=== PATIENT | female | born 1940 | race Caucasian/White ===

== ENCOUNTER → 2018-01-08 | Outpatient (CLI) | payer MEDICARE | END | disposition home or self-care (01) | LOC: KCIC MRI 12:12 | DX: S33.130A Subluxation of L3/L4 lumbar vertebra, initial encounter (principal); M47.895 Other spondylosis, thoracolumbar region; I10 Essential (primary) hypertension; I73.9 Peripheral vascular disease, unspecified; G89.29 Other chronic pain; Z87.891 Personal history of nicotine dependence; X58.XXXA Exposure to other specified factors, initial encounter; Y93.89 Activity, other specified; Y92.89 Other specified places as the place of occurrence of the external cause; Y99.8 Other external cause status | CPT/HCPCS: 72100; 93925 ==

== ENCOUNTER 2020-07-29 02:45 | Inpatient (IN) | payer MEDICARE ==
[~2020-07-29] VITALS: Ht 170.2 cm; Wt 63.0 kg
[~2020-07-29 02:45] MED LIST: ASPI-886 PO; CA C1TAB38 PO; CHOL100013 PO; CITA10TA4 PO; DOXY100C2 PO; HYDR-3164 PO; LISI-334 PO; OMEG500C3 PO; SIMV40TA18 PO
--- NOTE | 2020-07-29 03:01 | PHYS DOC ---
Past Medical History Past Medical History: COPD, Hypertension Past Surgical History: Hysterectomy, Other Additional Past Surgical Histo: AAA REPAIR W/ STENT PLACEMENT Smoking Status: Current Every Day Smoker Alcohol Use: None Drug Use: None General Adult EDM: Chief Complaint: WEAKNESS/GENERALIZED HPI: HPI: Patient is a 79 year old presents with right sided weakness, last known normal was at 2300 on 07/28. Patient noticed difficulty using her right hand. Patient also has some weakness in the right leg and dysarthria. Patient states symptoms are better than when they started but still has some difficulty touching her nose with her right hand. Patient denies any pain at this time. Review of Systems: Review of Systems: Constitutional: Denies fever or chills. [] Eyes: Denies change in visual acuity. [] HENT: Denies nasal congestion or sore throat. [] Respiratory: Denies cough or shortness of breath. [] Cardiovascular: Denies chest pain or edema. [] GI: Denies abdominal pain, nausea, vomiting, bloody stools or diarrhea. [] : Denies dysuria. [] Musculoskeletal: Denies back pain or joint pain. [] Integument: Denies rash. [] Neurologic: Denies headache, but has right-sided weakness Endocrine: Denies polyuria or polydipsia. [] Lymphatic: Denies swollen glands. [] Psychiatric: Denies depression or anxiety. [] Heart Score: Risk Factors: Risk Factors: DM, Current or recent (<one month) smoker, HTN, HLP, family history of CAD, obesity. Risk Scores: Score 0 - 3: 2.5% MACE over next 6 weeks - Discharge Home Score 4 - 6: 20.3% MACE over next 6 weeks - Admit for Clinical Observation Score 7 - 10: 72.7% MACE over next 6 weeks - Early Invasive Strategies Allergies: Allergies: Allergies Coded Allergies Type Severity Reaction Last Updated Verified codeine Adverse Reaction Intermediate Nausea 12/07/14 Yes Physical Exam: PE: Constitutional: Well developed, well nourished, no acute distress, non-toxic appearance. [] HENT: Normocephalic, atraumatic, bilateral external ears normal, oropharynx moist, no oral exudates, nose normal. [] Eyes: PERRLA, EOMI, conjunctiva normal, no discharge. [] Neck: Normal range of motion, no tenderness, supple, no stridor. [] Cardiovascular:Heart rate regular rhythm, peripheral pulses intact, cap refill brisk Lungs & Thorax: Bilateral breath sounds clear, no respiratory distress Abdomen: soft, no tenderness, no masses, no pulsatile masses. [] Skin: Warm, dry, no erythema, no rash. [] Back: No tenderness, no CVA tenderness. [] Extremities: No tenderness, no cyanosis, no clubbing, ROM intact, no edema. [] Neurologic: Alert and oriented X 3, right leg weakness, dysarthria, abnormal cerebellar exam Psychologic: Affect normal, judgement normal, mood normal. [] Current Patient Data: Labs: Laboratory Tests Test 07/29/20 03:00 White Blood Count 7.8 x10^3/uL Red Blood Count 4.45 x10^6/uL Hemoglobin 13.9 g/dL Hematocrit 41.0 % Mean Corpuscular Volume 92 fL Mean Corpuscular Hemoglobin 31 pg Mean Corpuscular Hemoglobin Concent 34 g/dL Red Cell Distribution Width 15.3 % Platelet Count 221 x10^3/uL Neutrophils (%) (Auto) 58 % Lymphocytes (%) (Auto) 28 % Monocytes (%) (Auto) 10 % Eosinophils (%) (Auto) 3 % Basophils (%) (Auto) 1 % Neutrophils # (Auto) 4.5 x10^3/uL Lymphocytes # (Auto) 2.2 x10^3/uL Monocytes # (Auto) 0.8 x10^3/uL Eosinophils # (Auto) 0.2 x10^3/uL Basophils # (Auto) 0.1 x10^3/uL Prothrombin Time 12.1 SEC Prothromb Time International Ratio 0.9 Activated Partial Thromboplast Time 32 SEC Sodium Level 140 mmol/L Potassium Level 3.8 mmol/L Chloride Level 104 mmol/L Carbon Dioxide Level 29 mmol/L Anion Gap 7 Blood Urea Nitrogen 23 mg/dL Creatinine 1.0 mg/dL Estimated GFR (Cockcroft-Gault) 53.3 BUN/Creatinine Ratio 23 Glucose Level 106 mg/dL Calcium Level 8.8 mg/dL Total Bilirubin 0.2 mg/dL Aspartate Amino Transf (AST/SGOT) 28 U/L Alanine Aminotransferase (ALT/SGPT) 27 U/L Alkaline Phosphatase 196 U/L Troponin I Quantitative 0.019 ng/mL Total Protein 6.4 g/dL Albumin 3.1 g/dL Albumin/Globulin Ratio 0.9 Current Medications Medications (Trade) Dose Ordered Sig/Franky Route PRN Reason Start Time Stop Time Status Last Admin Dose Admin Labetalol HCl (Normodyne Iv Push) 20 mg 1X ONCE IVP 07/29/20 03:30 07/29/20 03:31 DC 07/29/20 03:53 Iohexol (Omnipaque 350 Mg/ml) 75 ml 1X ONCE IV 07/29/20 03:30 07/29/20 03:31 DC Info (CONTRAST GIVEN -- Rx MONITORING) 1 each PRN DAILY PRN MC SEE COMMENTS 07/29/20 03:15 07/31/20 03:14 Aspirin (Aspirin Chewable) 324 mg 1X ONCE PO 07/29/20 04:00 07/29/20 04:01 DC 07/29/20 03:57 Ondansetron HCl (Zofran) 4 mg PRN Q8HRS PRN IV NAUSEA/VOMITING 1ST CHOICE 07/29/20 04:00 07/30/20 03:59 Vital Signs: Vital Signs Date Time Temp Pulse Resp B/P (MAP) Pulse Ox O2 Delivery O2 Flow Rate FiO2 07/29/20 03:53 65 205/93 07/29/20 02:52 97.9 70 20 232/107 (148) 92 Room Air 97.9 EKG: EKG: [] Normal sinus rhythm with a rate of 69 normal axis normal intervals normal ST segments Radiology/Procedures: Radiology/Procedures: [][facility] [address] [place] [address] IMAGING REPORT Signed PATIENT: HONORIO MCGUIRE ACCOUNT: [id number] : 1940 LOCATION: ER AGE: 79 SEX: F EXAM STATUS: REG ER ORD. PHYSICIAN: NARCISO LAGOS MD REASON: R WEAK PROCEDURE: CT CODE STROKE HEAD WO STUDY: CT head without contrast INDICATION: Right-sided weakness. COMPARISON: None. TECHNIQUE: Axial CT imaging through the head without the use of intravenous contrast. Sagittal and coronal reformats were obtained. One or more of the following individualized dose reduction techniques were utilized for this examination: 1. Automated exposure control 2. Adjustment of the mA and/or kV according to patient size 3. Use of iterative reconstruction technique. FINDINGS: No acute intracranial hemorrhage. No mass effect, midline shift or hydrocephalus. No large area of shepherd-white matter differentiation loss is identified. White matter findings which are nonspecific but most frequently seen in the setting of chronic microvascular ischemic change. Intracranial atherosclerotic calcifications. Surgical changes of both globes. Intact calvarium. IMPRESSION: No acute intracranial hemorrhage or CT evidence for an acute cortical infarction. The findings were discussed with Dr. Lagos via telephone on 07/21/2020. Electronically signed by: SAEID RAVI MD (07/29/2020 3:54 AM) [id number] DICTATED and SIGNED BY: SAEID RAVI MD DATE: 07/29/20 035 [facility] [address] [place] [address] IMAGING REPORT Signed PATIENT: HONORIO MCGUIRE ACCOUNT: [id number] : 1940 LOCATION: SOUTH AGE: 79 SEX: F EXAM STATUS: ADM IN ORD. PHYSICIAN: NARCISO LAGOS MD REASON: R WEAK PROCEDURE: CTA HEAD/NECK - CODE STROKE STUDY: CT angiography of the head and neck INDICATION: Right-sided weakness. COMPARISON: None. TECHNIQUE: Axial CT imaging of the head and neck utilizing angiography protocol and performed after the intravenous administration of 75 cc Omnipaque 300 contrast. Multiplanar reformats and 3D MIP acquisitions were obtained. Encountered areas of stenosis are measured per NASCET criteria. One or more of the following individualized dose reduction techniques were utilized for this examination: 1. Automated exposure control 2. Adjustment of the mA and/or kV according to patient size 3. Use of iterative reconstruction technique. FINDINGS: CTA NECK: Arch/Proximal Great Vessels: Multifocal calcified and noncalcified atheromatous plaque. The great vessel origins are not included in the [id number]-me-mrhm. No flow-limiting stenosis of the visualized left subclavian, left common carotid and brachiocephalic arteries. The right common carotid artery is patent throughout. Carotid Bifurcation/Cervical ICA: No stenosis through the skull base. Vertebral Arteries: Right-sided dominance. No stenosis or dissection throughout the neck. CTA HEAD: Posterior Circulation: Both intracranial vertebral arteries are patent and contribute to basilar flow. The basilar artery is widely patent. The adequately assessed vertebral and basilar artery branch vessels are patent. Moderate short segment stenosis of the left P1 segment, image 232 series 11. No stenosis is seen more distally on the left. Mild/moderate short segment stenosis of the right P2 segment, image 83 series 13. Short segment severe stenosis of the right posterior cerebral artery at the junction of the P2 and P3 segments, image 236 series 11. On the 3-D reformatted images there appears be occlusion at the P2-P3 junction but on the thin slice axials there is maintained opacification of the more distal right [employer] segments. Anterior Circulation: No stenosis of either intracranial internal carotid artery. Medial/inferior luminal outpouching seen bilaterally approaching the carotid terminus, but larger on the left, favored infundibula from the posterior communicating artery origin such as seen on the left on image 218 series 11. No large aneurysm. No central branch vessel occlusion or flow-limiting stenosis involving either total or anterior cerebral artery. Veins: Patent. MISCELLANEOUS: Emphysema. Multifactorial degenerative changes of the visualized spine with resultant central canal stenosis greatest at C3-C4 but not severe. Osseous neural foraminal encroachment is greatest on the left at C4-C5 and on the right at C3-C4. Osteopenia. Multiple missing teeth. IMPRESSION: CT Angio Neck: 1. Multifocal calcified and noncalcified atheromatous plaque but there is no flow-limiting stenosis or dissection throughout the extracranial carotid or vertebral arteries. 2. Chronic findings to include emphysema and advanced multifactorial cervical spine degenerative changes (greatest at C3-C4 and C4-C5). CT Angio Head: 1. No central occlusion is seen throughout the anterior or posterior cerebral circulation. 2. 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 Moderate stenosis of the left P1 segment and mild/moderate stenosis of the right P2 segment. No flow-limiting stenosis seen throughout the anterior circulation. If there is ongoing concern for an acute ischemic event MRI is recommended. Electronically signed by: SAEID RAVI MD (07/29/2020 4:34 AM) [id number] DICTATED and SIGNED BY: SAEID RAVI MD DATE: 07/29/20 0434 Course & Med Decision Making: Course & Med Decision Making Pertinent Labs and Imaging studies reviewed. (See chart for details) [] 1a Level of Consciousness: 0 = Alert; keenly responsive. 1b LOC Questions: 0 = Answers both questions correctly. 1c 0 = Performs both tasks correctly. 2 Best Gaze: 0 = Normal. 3. Visual: 0 = No visual loss. 4. Facial Palsy: 0 = Normal symmetrical movements. 5. Motor Arm: Left 0 = No drift; limb holds 90 (or 45) degrees for full 10 seconds. Right 1 = Drift; limb holds 90 (or 45) degrees, but drifts down before full 10 seconds; does not hit bed or other support. 6. Motor Leg: Left 0 = No drift; leg holds 30-degree position for full 5 seconds. Right 2 = Some effort against gravity; leg falls to bed by 5 seconds but has some effort against gravity. 7. Limb Ataxia: 1 = Present in one limb. 8. Sensory: 0 = Normal; no sensory loss. 9. Best Langauge: 1 = Geun-ov-lucekptd aphasia; some obvious loss of fluency or facility of co mprehension, without significant limitation on ideas expressed or form of expression. Reduction of speech and/or comprehension, however, makes conversation about provided materials difficult or impossible. For example, in conversation about provided materials, examiner can identify picture or naming card content from patient's response. 10 Dysarthria: 1 = Raxr-eg-dqfggfdx dysarthria; patient slurs at least some words and, at worst, can be understood with some difficulty. 11. Extinction and Inattention (formerly Neglect): 0 = No abnormality. nih:6 79-year-old female presents with stroke-like symptoms. Patient has a NIH of 6. Patient's last known normal was 3 hours and 45 minutes prior to arrival and due to her age of 79 she is not a candidate for TPA and in the 3 to 4-1/2-hour window. Patient does not have a large vessel occlusion therefore she is not sent for endovascular clot retrieval. Symptoms may also be due to accelerated hypertension. Patient given dose of labetalol. Patient be admitted to Dr. Yang with a consult placed with neurology. Critical care time was [35] minutes exclusive of procedures. Critical care time was [35] minutes which includes time at bedside, spent in discussion of patient's care with specialist and/or family members, with interpretation of laboratory and/or radiological studies and is exclusive of procedures. Clinical condition: Stroke Critical interventions: Labetalol, aspirin, admission with neurology consult Cristiana Disclaimer: Cristiana Disclaimer: This electronic medical record was generated, in whole or in part, using a voice recognition dictation system. Departure Departure Impression: Primary Impression: CVA (cerebral vascular accident) Additional Impression: Accelerated hypertension Disposition: ADMITTED INPATIENT Admitting Physician: TRISTAN GUERRERO) Condition: GUARDED Referrals: NO PCP (PCP) Justicifation of Admission Dx: Justifications for Admission: Justification of Admission Dx: Yes NARCISO LAGOS MD Jul 29, 2020 03:01
[2020-07-29 03:10] LABS: BASO # 0.1 x10^3/uL (0.0-0.2); BASO % 1 % (0-3); EOS # 0.2 x10^3/uL (0.0-0.7); EOS % 3 % (0-3); HEMOGLOBIN 13.9 g/dL (12.0-15.5); LYMPH # 2.2 x10^3/uL (1.0-4.8); LYMPH % 28 % (24-48); MEAN CORPUSCULAR HEMOGLOBIN 31 pg (25-35); MEAN CORPUSCULAR HGB CONC 34 g/dL (31-37); MEAN CORPUSCULAR VOLUME 92 fL (79-100); MONO # 0.8 x10^3/uL (0.0-1.1); MONO % 10 % (0-9); NEUT # 4.5 x10^3/uL (1.8-7.7); NEUT % 58 % (31-73); PLATELET COUNT 221 x10^3/uL (140-400); RED BLOOD COUNT 4.45 x10^6/uL (3.50-5.40); RED CELL DISTRIBUTION WIDTH 15.3 % (11.5-14.5); WHITE BLOOD COUNT 7.8 x10^3/uL (4.0-11.0)
[2020-07-29] MEDS ORDERED: CONTRAST GIVEN. MC PRN (03:15)
[2020-07-29 03:20] LABS: PROTHROMBIN TIME PATIENT 12.1 SEC (11.7-14.0)
[2020-07-29 03:21] LABS: CALCIUM 8.8 mg/dL (8.5-10.1); GFR 53.3; POTASSIUM 3.8 mmol/L (3.5-5.1)
[2020-07-29 03:26] LABS: ALBUMIN 3.1 g/dL (3.4-5.0); ALBUMIN/GLOBULIN RATIO 0.9 (1.0-1.7); TOTAL BILIRUBIN 0.2 mg/dL (0.2-1.0); TOTAL PROTEIN 6.4 g/dL (6.4-8.2)
[2020-07-29] MEDS ORDERED: LABETALOL 20 MG/4 ML DISP.SYRIN. IVP ONE (03:30)
[2020-07-29] MEDS ORDERED: IOHEXOL 350 MG/ML 100 ML VIAL. IV ONE (03:30)
--- NOTE | 2020-07-29 03:57 | RAD ---
STUDY: CT head without contrast INDICATION: Right-sided weakness. COMPARISON: None. TECHNIQUE: Axial CT imaging through the head without the use of intravenous contrast. Sagittal and coronal reformats were obtained. One or more of the following individualized dose reduction techniques were utilized for this examination: 1. Automated exposure control 2. Adjustment of the mA and/or kV according to patient size 3. Use of iterative reconstruction technique. FINDINGS: No acute intracranial hemorrhage. No mass effect, midline shift or hydrocephalus. No large area of shepherd-white matter differentiation loss is identified. White matter findings which are nonspecific but most frequently seen in the setting of chronic microvascular ischemic change. Intracranial atherosclerotic calcifications. Surgical changes of both globes. Intact calvarium. IMPRESSION: No acute intracranial hemorrhage or CT evidence for an acute cortical infarction. The findings were discussed with Dr. Otero via telephone on 07/21/2020. Electronically signed by: SAEID RAVI MD (07/29/2020 3:54 AM) [id number]
[2020-07-29] MEDS ORDERED: ONDANSETRON PF 4 MG/2 ML VIAL. IV PRN (04:00)
[2020-07-29] MEDS ORDERED: ASPIRIN CHEWABLE 81 MG TABLET. PO ONE (04:00)
--- NOTE | 2020-07-29 04:36 | RAD ---
STUDY: CT angiography of the head and neck INDICATION: Right-sided weakness. COMPARISON: None. TECHNIQUE: Axial CT imaging of the head and neck utilizing angiography protocol and performed after the intravenous administration of 75 cc Omnipaque 300 contrast. Multiplanar reformats and 3D MIP acquisitions were obtained. Encountered areas of stenosis are measured per NASCET criteria. One or more of the following individualized dose reduction techniques were utilized for this examination: 1. Automated exposure control 2. Adjustment of the mA and/or kV according to patient size 3. Use of iterative reconstruction technique. FINDINGS: CTA NECK: Arch/Proximal Great Vessels: Multifocal calcified and noncalcified atheromatous plaque. The great vessel origins are not included in the fykky-gw-kznh. No flow-limiting stenosis of the visualized left subclavian, left common carotid and brachiocephalic arteries. The right common carotid artery is patent throughout. Carotid Bifurcation/Cervical ICA: No stenosis through the skull base. Vertebral Arteries: Right-sided dominance. No stenosis or dissection throughout the neck. CTA HEAD: Posterior Circulation: Both intracranial vertebral arteries are patent and contribute to basilar flow. The basilar artery is widely patent. The adequately assessed vertebral and basilar artery branch vessels are patent. Moderate short segment stenosis of the left P1 segment, image 232 series 11. No stenosis is seen more distally on the left. Mild/moderate short segment stenosis of the right P2 segment, image 83 series 13. Short segment severe stenosis of the right posterior cerebral artery at the junction of the P2 and P3 segments, image 236 series 11. On the 3-D reformatted images there appears be occlusion at the P2-P3 junction but on the thin slice axials there is maintained opacification of the more distal right [employer] segments. Anterior Circulation: No stenosis of either intracranial internal carotid artery. Medial/inferior luminal outpouching seen bilaterally approaching the carotid terminus, but larger on the left, favored infundibula from the posterior communicating artery origin such as seen on the left on image 218 series 11. No large aneurysm. No central branch vessel occlusion or flow-limiting stenosis involving either total or anterior cerebral artery. Veins: Patent. MISCELLANEOUS: Emphysema. Multifactorial degenerative changes of the visualized spine with resultant central canal stenosis greatest at C3-C4 but not severe. Osseous neural foraminal encroachment is greatest on the left at C4-C5 and on the right at C3-C4. Osteopenia. Multiple missing teeth. IMPRESSION: CT Angio Neck: 1. Multifocal calcified and noncalcified atheromatous plaque but there is no flow-limiting stenosis or dissection throughout the extracranial carotid or vertebral arteries. 2. Chronic findings to include emphysema and advanced multifactorial cervical spine degenerative changes (greatest at C3-C4 and C4-C5). CT Angio Head: 1. No central occlusion is seen throughout the anterior or posterior cerebral circulation. 2. 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 Moderate stenosis of the left P1 segment and mild/moderate stenosis of the right P2 segment. No flow-limiting stenosis seen throughout the anterior circulation. If there is ongoing concern for an acute ischemic event MRI is recommended. Electronically signed by: SAEID RAVI MD (07/29/2020 4:34 AM) [id number]
--- NOTE | 2020-07-29 04:52 | RAD ---
Study: CR PORTABLE CHEST 1V Indication: Right-sided weakness. Comparison: 06/08/2016 Findings: Emphysematous changes of the lungs. Hazy linear density at the left lung base is favored atelectasis. No confluent infiltrate. No layering effusion or pneumothorax. The cardiomediastinal silhouette is at the upper limits of normal for size noting AP technique. Vascular calcifications. Impression: No acute radiographic abnormality of the chest. Emphysematous changes and probable volume loss at the left lung base. Electronically signed by: SAEID RAVI MD (07/29/2020 4:50 AM) [id number]
[2020-07-29 07:00] VITALS: BP 155/72
--- NOTE | 2020-07-29 07:04 | NUR ---
Patient arrived and NIH assessment done with Amrita BANKS from ED and NIH score 6. Patients blood pressure 201/[address] Lo contacted at 0617 of the NIH score, blood pressure, and consult. No new orders received and stated would see patient this AM.
--- NOTE | 2020-07-29 07:19 | EKG ---
[facility] [address] [place] [address] Test Date: 2020-07-29 Test Time: 03:31:25 Pat Name: HONORIO MCGUIRE Department: Room: Gender: F Owner/Operator: : 1940 Requested By: NARCISO LAGOS Order Number: [id number] Reading MD: Measurements Intervals [place] Rate: 69 P: 90 RI: 170 QRS: 24 QRSD: 88 T: 83 QT: 432 QTc: 465 Interpretive Statements SINUS RHYTHM T ABNORMALITY IN HIGH LATERAL LEADS ABNORMAL ECG RI6.02 No previous ECG available for comparison
[2020-07-29] MEDS ORDERED: ACETAMINOPHEN 325 MG TABLET. PO PRN (08:45)
[2020-07-29] MEDS ORDERED: ACETAMINOPHEN 650 MG SUPP.RECT. PR PRN ×2 (08:45→11:30)
[2020-07-29] MEDS ORDERED: ASPIRIN RECTAL 300 MG SUPP. PR PRN (08:45)
--- NOTE | 2020-07-29 09:01 | PDOC1 ---
History and Physical Date of Admission Date of Admission DATE: 07/29/20 TIME: 09:00 Identification/Chief Complaint Chief Complaint 79 year old FEMALE SMOKER presents with right sided weakness, last known normal was at 2300 on 07/28. Patient noticed difficulty using her right hand. // weakness in the right leg and dysarthria. Patient states symptoms are better than when they started but still has some difficulty touching her nose with her right hand. 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 Moderate stenosis of the left P1 segment and mild/moderate stenosis of the right P2 segment. on cta head NEEDS DPOA REVIEW, 12 MIN Past Medical History Past Medical History Past Medical History Past Medical History Past Medical History: COPD, Hypertension Past Surgical History: Hysterectomy, Other Additional Past Surgical Histo: AAA REPAIR W/ STENT PLACEMENT Smoking Status: Current Every Day Smoker Alcohol Use: None Drug Use: None FHX COPD Cardiovascular: HTN, Hyperlipidemia, Other Pulmonary: COPD CENTRAL NERVOUS SYSTEM: Other GI: No pertinent hx Heme/Onc: No pertinent hx Hepatobiliary: No pertinent hx Musculoskeletal: Osteoarthritis Rheumatologic: No pertinent hx Infectious disease: No pertinent hx Renal/: No pertinent hx Endocrine: No pertinent hx Past Surgical History Past Surgical History: Hernia Repair, Hysterectomy, Other Family History Family History: Coronary Artery Disease, High Cholestrol, Hypertension Social History Smoke: <1 pack per day ALCOHOL: none Drugs: None Current Problem List Problem List Problems Medical Problems: (1) Accelerated hypertension Status: Acute (2) CVA (cerebral vascular accident) Status: Acute Current Medications Current Medications Current Medications Labetalol HCl (Normodyne Iv Push) 20 mg 1X ONCE IVP Last administered on 07/29/20at 03:53; Start 07/29/20 at 03:30; Stop 07/29/20 at 03:31; Status DC Iohexol (Omnipaque 350 Mg/ml) 75 ml 1X ONCE IV Last administered on 07/29/20at 03:30; Start 07/29/20 at 03:30; Stop 07/29/20 at 03:31; Status DC Info (CONTRAST GIVEN -- Rx MONITORING) 1 each PRN DAILY PRN MC SEE COMMENTS; Start 07/29/20 at 03:15; Stop 07/31/20 at 03:14 Aspirin (Aspirin Chewable) 324 mg 1X ONCE PO Last administered on 07/29/20at 03:57; Start 07/29/20 at 04:00; Stop 07/29/20 at 04:01; Status DC Ondansetron HCl (Zofran) 4 mg PRN Q8HRS PRN IV NAUSEA/VOMITING 1ST CHOICE; Start 07/29/20 at 04:00; Stop 07/30/20 at 03:59 Acetaminophen (Tylenol) 650 mg PRN Q6HRS PRN PO TEMP > 100.4F; Start 07/29/20 at 08:45 Acetaminophen (Tylenol Supp) 650 mg PRN Q4HRS PRN FL TEMP > 100.4F; Start 07/29/20 at 08:45 Aspirin (Ecotrin) 325 mg DAILYWBKFT PO ; Start 07/30/20 at 08:00 Aspirin (Aspirin Rectal Supp) 300 mg PRN DAILY PRN FL IF UNABLE TO TAKE PO; Start 07/29/20 at 08:45 Active Scripts Active Reported Calcium 5-325 Tablet (Acetaminophen/Hydrocodone Bitart) 1 Each Tablet 1-2 Tab PO Q 4-6HRS Doxycycline Hyclate 100 Mg Capsule 1 Cap PO BID 7 Days Vitamin D (Cholecalciferol (Vitamin D3)) 1,000 Unit Capsule 1 Cap PO DAILY Calcium + D Soft Chewable Tab (Ca Carbonate/Vitamin D3/Vit K) 1 Each Tab.chew 1 Each PO DAILY Fish Oil ([place]-3 Fatty Acids) 500 Mg Capsule 500 Mg PO DAILY Simvastatin 40 Mg Tablet 40 Mg PO Aspirin Ec (Aspirin) 81 Mg Tablet.dr 81 Mg PO Citalopram Hbr (Citalopram Hydrobromide) 10 Mg Tablet 10 Mg PO Lisinopril 20 Mg Tablet 20 Mg PO Allergies Allergies: Coded Allergies: codeine (Verified Adverse Reaction, Intermediate, Nausea, 12/07/14) ROS Review of System Review of Systems: Review of Systems: Constitutional: Denies fever or chills. [] Eyes: Denies change in visual acuity. [] HENT: Denies nasal congestion or sore throat. [] Respiratory: Denies cough or shortness of breath. [] Cardiovascular: Denies chest pain or edema. [] GI: Denies abdominal pain, nausea, vomiting, bloody stools or diarrhea. [] : Denies dysuria. [] Musculoskeletal: Denies back pain or joint pain. [] Integument: Denies rash. [] Neurologic: Denies headache, but has right-sided weakness Endocrine: Denies polyuria or polydipsia. [] Lymphatic: Denies swollen glands. [] Psychiatric: Denies depression or anxiety. [] 14 PT ROS OTHERWISE NEG Respiratory: No: Cough, Hemoptysis, Orthopnea, Pleuritic Pain, Shortness of breath, SOB with excertion, Sputum Changes, Stridor, Tachypnea, Wheezing, Other Cardiovascular: No Chest Pain, No Palpitations, No Orthopnea, No Paroxysmal Noc. Dyspnea, No Edema, No Lt Headedness, No Other Gastrointestinal: No Nausea, No Vomiting, No Abdominal Pain, No Diarrhea, No Constipation, No Melena, No Hematochezia, No Other Physical Exam Physical Exam Constitutional: Well developed, well nourished, no acute distress, non-toxic appearance. [] HENT: Normocephalic, atraumatic, bilateral external ears normal, oropharynx moist, no oral exudates, nose normal. [] Eyes: PERRLA, EOMI, conjunctiva normal, no discharge. [] Neck: Normal range of motion, no tenderness, supple, no stridor. [] Cardiovascular:Heart rate regular rhythm, peripheral pulses intact, cap refill brisk Lungs & Thorax: Bilateral breath sounds clear, no respiratory distress Abdomen: soft, no tenderness, no masses, no pulsatile masses. [] Skin: Warm, dry, no erythema, no rash. [] Back: No tenderness, no CVA tenderness. [] Extremities: No tenderness, no cyanosis, no clubbing, ROM intact, no edema. [] Neurologic: Alert and oriented X 3, right leg weakness, dysarthria, abnormal cerebellar exam Psychologic: Affect normal, judgement normal, mood normal. [] severe dysarthria., failed swallow screen General: Alert, Cooperative HEENT: Atraumatic Lungs: Clear to auscultation Breasts: Not examined Abdomen: Normal bowel sounds, Soft Rectal Exam: not examined PELVIC: Examination not indicated Extremities: No clubbing, No cyanosis, No edema Skin: No significant lesion Psych/Mental Status: Mood NL Vitals Vitals Vital Signs Date Time Temp Pulse Resp B/P (MAP) Pulse Ox O2 Delivery O2 Flow Rate FiO2 07/29/20 07:00 98.1 57 16 155/72 (99) 90 Room Air 98.1 Labs Labs Laboratory Tests Test 07/29/20 03:00 White Blood Count 7.8 x10^3/uL (4.0-11.0) Red Blood Count 4.45 x10^6/uL (3.50-5.40) Hemoglobin 13.9 g/dL (12.0-15.5) Hematocrit 41.0 % (36.0-47.0) Mean Corpuscular Volume 92 fL (79-100) Mean Corpuscular Hemoglobin 31 pg (25-35) Mean Corpuscular Hemoglobin Concent 34 g/dL (31-37) Red Cell Distribution Width 15.3 % (11.5-14.5) Platelet Count 221 x10^3/uL (140-400) Neutrophils (%) (Auto) 58 % (31-73) Lymphocytes (%) (Auto) 28 % (24-48) Monocytes (%) (Auto) 10 % (0-9) Eosinophils (%) (Auto) 3 % (0-3) Basophils (%) (Auto) 1 % (0-3) Neutrophils # (Auto) 4.5 x10^3/uL (1.8-7.7) Lymphocytes # (Auto) 2.2 x10^3/uL (1.0-4.8) Monocytes # (Auto) 0.8 x10^3/uL (0.0-1.1) Eosinophils # (Auto) 0.2 x10^3/uL (0.0-0.7) Basophils # (Auto) 0.1 x10^3/uL (0.0-0.2) Prothrombin Time 12.1 SEC (11.7-14.0) Prothromb Time International Ratio 0.9 (0.8-1.1) Activated Partial Thromboplast Time 32 SEC (24-38) Sodium Level 140 mmol/L (136-145) Potassium Level 3.8 mmol/L (3.5-5.1) Chloride Level 104 mmol/L (98-107) Carbon Dioxide Level 29 mmol/L (21-32) Anion Gap 7 (6-14) Blood Urea Nitrogen 23 mg/dL (7-20) Creatinine 1.0 mg/dL (0.6-1.0) Estimated GFR (Cockcroft-Gault) 53.3 BUN/Creatinine Ratio 23 (6-20) Glucose Level 106 mg/dL (70-99) Calcium Level 8.8 mg/dL (8.5-10.1) Total Bilirubin 0.2 mg/dL (0.2-1.0) Aspartate Amino Transf (AST/SGOT) 28 U/L (15-37) Alanine Aminotransferase (ALT/SGPT) 27 U/L (14-59) Alkaline Phosphatase 196 U/L (46-116) Troponin I Quantitative 0.019 ng/mL (0.000-0.055) Total Protein 6.4 g/dL (6.4-8.2) Albumin 3.1 g/dL (3.4-5.0) Albumin/Globulin Ratio 0.9 (1.0-1.7) Laboratory Tests Test 07/29/20 03:00 White Blood Count 7.8 x10^3/uL (4.0-11.0) Red Blood Count 4.45 x10^6/uL (3.50-5.40) Hemoglobin 13.9 g/dL (12.0-15.5) Hematocrit 41.0 % (36.0-47.0) Mean Corpuscular Volume 92 fL (79-100) Mean Corpuscular Hemoglobin 31 pg (25-35) Mean Corpuscular Hemoglobin Concent 34 g/dL (31-37) Red Cell Distribution Width 15.3 % (11.5-14.5) Platelet Count 221 x10^3/uL (140-400) Neutrophils (%) (Auto) 58 % (31-73) Lymphocytes (%) (Auto) 28 % (24-48) Monocytes (%) (Auto) 10 % (0-9) Eosinophils (%) (Auto) 3 % (0-3) Basophils (%) (Auto) 1 % (0-3) Neutrophils # (Auto) 4.5 x10^3/uL (1.8-7.7) Lymphocytes # (Auto) 2.2 x10^3/uL (1.0-4.8) Monocytes # (Auto) 0.8 x10^3/uL (0.0-1.1) Eosinophils # (Auto) 0.2 x10^3/uL (0.0-0.7) Basophils # (Auto) 0.1 x10^3/uL (0.0-0.2) Prothrombin Time 12.1 SEC (11.7-14.0) Prothromb Time International Ratio 0.9 (0.8-1.1) Activated Partial Thromboplast Time 32 SEC (24-38) Sodium Level 140 mmol/L (136-145) Potassium Level 3.8 mmol/L (3.5-5.1) Chloride Level 104 mmol/L (98-107) Carbon Dioxide Level 29 mmol/L (21-32) Anion Gap 7 (6-14) Blood Urea Nitrogen 23 mg/dL (7-20) Creatinine 1.0 mg/dL (0.6-1.0) Estimated GFR (Cockcroft-Gault) 53.3 BUN/Creatinine Ratio 23 (6-20) Glucose Level 106 mg/dL (70-99) Calcium Level 8.8 mg/dL (8.5-10.1) Total Bilirubin 0.2 mg/dL (0.2-1.0) Aspartate Amino Transf (AST/SGOT) 28 U/L (15-37) Alanine Aminotransferase (ALT/SGPT) 27 U/L (14-59) Alkaline Phosphatase 196 U/L (46-116) Troponin I Quantitative 0.019 ng/mL (0.000-0.055) Total Protein 6.4 g/dL (6.4-8.2) Albumin 3.1 g/dL (3.4-5.0) Albumin/Globulin Ratio 0.9 (1.0-1.7) Images Images STUDY: CT head without contrast INDICATION: Right-sided weakness. COMPARISON: None. TECHNIQUE: Axial CT imaging through the head without the use of intravenous contrast. Sagittal and coronal reformats were obtained. One or more of the following individualized dose reduction techniques were utilized for this examination: 1. Automated exposure control 2. Adjustment of the mA and/or kV according to patient size 3. Use of iterative reconstruction technique. FINDINGS: No acute intracranial hemorrhage. No mass effect, midline shift or hydrocephalus. No large area of shepherd-white matter differentiation loss is identified. White matter findings which are nonspecific but most frequently seen in the setting of chronic microvascular ischemic change. Intracranial atherosclerotic calcifications. Surgical changes of both globes. Intact calvarium. IMPRESSION: No acute intracranial hemorrhage or CT evidence for an acute cortical infarction. The findings were discussed with Dr. Otero via telephone on 07/21/2020. 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 Moderate stenosis of the left P1 segment and mild/moderate stenosis of the right P2 segment. 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 ON CT HEAD No acute intracranial hemorrhage or CT evidence for an acute cortical infarction. Hypertension severe dysarthria. EMPHYSEMA PLAN ADMIT CVC BED NEUROLOGY CONSULT PT/OT/ST neurochecks q 4 hrs dvt prophylasis MRI of the brain Echocardiogram DISCUSSED DPOA NEED X 10 MIN CARDIOLOGY CONSULT SMOKING CESSATION EDUCATION PROVIDED 12 MIN 74 MIN PT EXAM, CHART REVIEW, > 50% OF TIME SPENT WITH EXAM, CHART REVIEW, PT CARE COORDINATION Justifications for Admission Other Justification RHIANNON WILLIS MD Jul 29, 2020 09:01
[2020-07-29 09:09] LABS: CHOLESTEROL/HDL RATIO 4.1
--- NOTE | 2020-07-29 09:29 | PDOC2 ---
NEUROLOGY CONSULT Date of Service DOS: DATE: 07/29/20 TIME: 09:20 Reason for Consult Reason for Consult: Stroke Referring Physician Referring Physician: Dr. Yang Source Source: Chart review, Patient History of Present Illness History of Present Illness The patient is an 79-year-old right-handed female last known normal 11 PM last night, she presented to the emergency department at 2:45 AM today with right- sided weakness and dysarthria. It was determined that she was too far along in the TPA window (She still was in the 4.5 hour window but emergency room physician denied tPA due to her age and improving neurological status). Patient denies a prior history of stroke, seizure, or head injury. She is doing a little bit better. She failed her swallow evaluation.I saw her 6 years ago for vestibular problems. Past Medical History Cardiovascular: HTN, Hyperlipidemia Pulmonary: Bronchitis, COPD CENTRAL NERVOUS SYSTEM: Vertigo Psych: Anxiety Musculoskeletal: low back pain Endocrine: Osteopenia, Osteoporosis, Other ( rib fractures) Past Surgical History Past Surgical History: Cataract Removal, Hernia Repair ( ventral), Hysterectomy, Other (Abdominal aortic aneurysm) Family History Family History: Hypertension Social History Social History , son lives with her, smokes tobacco, uses no alcohol Current Medications Current Medications Current Medications Labetalol HCl (Normodyne Iv Push) 20 mg 1X ONCE IVP Last administered on 07/29/20at 03:53; Start 07/29/20 at 03:30; Stop 07/29/20 at 03:31; Status DC Iohexol (Omnipaque 350 Mg/ml) 75 ml 1X ONCE IV Last administered on 07/29/20at 03:30; Start 07/29/20 at 03:30; Stop 07/29/20 at 03:31; Status DC Info (CONTRAST GIVEN -- Rx MONITORING) 1 each PRN DAILY PRN MC SEE COMMENTS; Start 07/29/20 at 03:15; Stop 07/31/20 at 03:14 Aspirin (Aspirin Chewable) 324 mg 1X ONCE PO Last administered on 07/29/20at 03:57; Start 07/29/20 at 04:00; Stop 07/29/20 at 04:01; Status DC Ondansetron HCl (Zofran) 4 mg PRN Q8HRS PRN IV NAUSEA/VOMITING 1ST CHOICE; Start 07/29/20 at 04:00; Stop 07/30/20 at 03:59 Acetaminophen (Tylenol) 650 mg PRN Q6HRS PRN PO TEMP > 100.4F; Start 07/29/20 at 08:45 Acetaminophen (Tylenol Supp) 650 mg PRN Q4HRS PRN VA TEMP > 100.4F; Start 07/29/20 at 08:45 Aspirin (Ecotrin) 325 mg DAILYWBKFT PO ; Start 07/30/20 at 08:00 Aspirin (Aspirin Rectal Supp) 300 mg PRN DAILY PRN VA IF UNABLE TO TAKE PO; Start 07/29/20 at 08:45 Active Scripts Active Reported [place] 5-325 Tablet (Acetaminophen/Hydrocodone Bitart) 1 Each Tablet 1-2 Tab PO Q4-6HRS Doxycycline Hyclate 100 Mg Capsule 1 Cap PO BID 7 Days Vitamin D (Cholecalciferol (Vitamin D3)) 1,000 Unit Capsule 1 Cap PO DAILY Calcium + D Soft Chewable Tab (Ca Carbonate/Vitamin D3/Vit K) 1 Each Tab.chew 1 Each PO DAILY Fish Oil (Gleason-3 Fatty Acids) 500 Mg Capsule 500 Mg PO DAILY Simvastatin 40 Mg Tablet 40 Mg PO Aspirin Ec (Aspirin) 81 Mg Tablet.dr 81 Mg PO Citalopram Hbr (Citalopram Hydrobromide) 10 Mg Tablet 10 Mg PO Lisinopril 20 Mg Tablet 20 Mg PO Allergies Allergies: Coded Allergies: codeine (Verified Adverse Reaction, Intermediate, Nausea, 12/07/14) ROS Review of System Negative for fever, chills, weight loss, shortness of breath, chest pain, indigestion, hematochezia, melena, and dysuria. Full 14-point review of systems is negative. Physical Exam Physical Examination General: Well-developed, well-nourished white female in no acute distress HEENT: Normocephalic andatraumatic. Temporal arteriespulsatile and nontender. Neck: Supple without bruit, no meningismus Musculoskeletal: Stability:see neurologic. Gait exam:see neurologic. Tone:see neurologic.Strength:see neurologic. Neurological: Mental Status:intact, orientation, memory, attention span/concentration, language, fund of knowledge normal, but has severe dysarthria. Cranial Nerves:Pupils equal and reactive to light, extraocular movements areintact, visual l[place] are full to confrontation. Facial sensation is normal. There is a right central facial weakness. Vestibulo-ocular reflex is intact. Palate elevates and tongue protrudes in midline. All other cranial related problems are negative except as mentioned before.Reflexes:2+ and symmetric with flexor plantar responses. Motor:3/5 right hemiparesis. Coordination:Finger-nose finger and [id number] testing are not out of proportion to her weakness. Rapid alternating movements and fine finger movements are intact. Gait: not tested. Sensory:Normal pinprick, vibration, light touch, proprioception. Vitals VITALS Vital Signs Date Time Temp Pulse Resp B/P (MAP) Pulse Ox O2 Delivery O2 Flow Rate FiO2 07/29/20 07:00 98.1 57 16 155/72 (99) 90 Room Air 98.1 Labs Labs Laboratory Tests Test 07/29/20 03:00 White Blood Count 7.8 x10^3/uL (4.0-11.0) Red Blood Count 4.45 x10^6/uL (3.50-5.40) Hemoglobin 13.9 g/dL (12.0-15.5) Hematocrit 41.0 % (36.0-47.0) Mean Corpuscular Volume 92 fL (79-100) Mean Corpuscular Hemoglobin 31 pg (25-35) Mean Corpuscular Hemoglobin Concent 34 g/dL (31-37) Red Cell Distribution Width 15.3 % (11.5-14.5) Platelet Count 221 x10^3/uL (140-400) Neutrophils (%) (Auto) 58 % (31-73) Lymphocytes (%) (Auto) 28 % (24-48) Monocytes (%) (Auto) 10 % (0-9) Eosinophils (%) (Auto) 3 % (0-3) Basophils (%) (Auto) 1 % (0-3) Neutrophils # (Auto) 4.5 x10^3/uL (1.8-7.7) Lymphocytes # (Auto) 2.2 x10^3/uL (1.0-4.8) Monocytes # (Auto) 0.8 x10^3/uL (0.0-1.1) Eosinophils # (Auto) 0.2 x10^3/uL (0.0-0.7) Basophils # (Auto) 0.1 x10^3/uL (0.0-0.2) Prothrombin Time 12.1 SEC (11.7-14.0) Prothromb Time International Ratio 0.9 (0.8-1.1) Activated Partial Thromboplast Time 32 SEC (24-38) Sodium Level 140 mmol/L (136-145) Potassium Level 3.8 mmol/L (3.5-5.1) Chloride Level 104 mmol/L (98-107) Carbon Dioxide Level 29 mmol/L (21-32) Anion Gap 7 (6-14) Blood Urea Nitrogen 23 mg/dL (7-20) Creatinine 1.0 mg/dL (0.6-1.0) Estimated GFR (Cockcroft-Gault) 53.3 BUN/Creatinine Ratio 23 (6-20) Glucose Level 106 mg/dL (70-99) Calcium Level 8.8 mg/dL (8.5-10.1) Total Bilirubin 0.2 mg/dL (0.2-1.0) Aspartate Amino Transf (AST/SGOT) 28 U/L (15-37) Alanine Aminotransferase (ALT/SGPT) 27 U/L (14-59) Alkaline Phosphatase 196 U/L (46-116) Troponin I Quantitative 0.019 ng/mL (0.000-0.055) Total Protein 6.4 g/dL (6.4-8.2) Albumin 3.1 g/dL (3.4-5.0) Albumin/Globulin Ratio 0.9 (1.0-1.7) Triglycerides Level 133 mg/dL (0-150) Cholesterol Level 232 mg/dL (0-200) LDL Cholesterol, Calculated 149 mg/dL (0-100) VLDL Cholesterol, Calculated 27 mg/dL (0-40) Non-HDL Cholesterol Calculated 176 mg/dL (0-129) HDL Cholesterol 56 mg/dL (40-60) Cholesterol/HDL Ratio 4.1 Laboratory Tests Test 07/29/20 03:00 White Blood Count 7.8 x10^3/uL (4.0-11.0) Red Blood Count 4.45 x10^6/uL (3.50-5.40) Hemoglobin 13.9 g/dL (12.0-15.5) Hematocrit 41.0 % (36.0-47.0) Mean Corpuscular Volume 92 fL (79-100) Mean Corpuscular Hemoglobin 31 pg (25-35) Mean Corpuscular Hemoglobin Concent 34 g/dL (31-37) Red Cell Distribution Width 15.3 % (11.5-14.5) Platelet Count 221 x10^3/uL (140-400) Neutrophils (%) (Auto) 58 % (31-73) Lymphocytes (%) (Auto) 28 % (24-48) Monocytes (%) (Auto) 10 % (0-9) Eosinophils (%) (Auto) 3 % (0-3) Basophils (%) (Auto) 1 % (0-3) Neutrophils # (Auto) 4.5 x10^3/uL (1.8-7.7) Lymphocytes # (Auto) 2.2 x10^3/uL (1.0-4.8) Monocytes # (Auto) 0.8 x10^3/uL (0.0-1.1) Eosinophils # (Auto) 0.2 x10^3/uL (0.0-0.7) Basophils # (Auto) 0.1 x10^3/uL (0.0-0.2) Prothrombin Time 12.1 SEC (11.7-14.0) Prothromb Time International Ratio 0.9 (0.8-1.1) Activated Partial Thromboplast Time 32 SEC (24-38) Sodium Level 140 mmol/L (136-145) Potassium Level 3.8 mmol/L (3.5-5.1) Chloride Level 104 mmol/L (98-107) Carbon Dioxide Level 29 mmol/L (21-32) Anion Gap 7 (6-14) Blood Urea Nitrogen 23 mg/dL (7-20) Creatinine 1.0 mg/dL (0.6-1.0) Estimated GFR (Cockcroft-Gault) 53.3 BUN/Creatinine Ratio 23 (6-20) Glucose Level 106 mg/dL (70-99) Calcium Level 8.8 mg/dL (8.5-10.1) Total Bilirubin 0.2 mg/dL (0.2-1.0) Aspartate Amino Transf (AST/SGOT) 28 U/L (15-37) Alanine Aminotransferase (ALT/SGPT) 27 U/L (14-59) Alkaline Phosphatase 196 U/L (46-116) Troponin I Quantitative 0.019 ng/mL (0.000-0.055) Total Protein 6.4 g/dL (6.4-8.2) Albumin 3.1 g/dL (3.4-5.0) Albumin/Globulin Ratio 0.9 (1.0-1.7) Triglycerides Level 133 mg/dL (0-150) Cholesterol Level 232 mg/dL (0-200) LDL Cholesterol, Calculated 149 mg/dL (0-100) VLDL Cholesterol, Calculated 27 mg/dL (0-40) Non-HDL Cholesterol Calculated 176 mg/dL (0-129) HDL Cholesterol 56 mg/dL (40-60) Cholesterol/HDL Ratio 4.[address] head without contrast INDICATION: Right-sided weakness. COMPARISON: None. TECHNIQUE: Axial CT imaging through the head without the use of intravenous contrast. Sagittal and coronal reformats were obtained. One or more of the following individualized dose reduction techniques were utilized for this examination: 1. Automated exposure control 2. Adjustment of the mA and/or kV according to patient size 3. Use of iterative reconstruction technique. FINDINGS: No acute intracranial hemorrhage. No mass effect, midline shift or hydrocephalus. No large area of shepherd-white matter differentiation loss is identified. White matter findings which are nonspecific but most frequently seen in the setting of chronic microvascular ischemic change. Intracranial atherosclerotic calcifications. Surgical changes of both globes. Intact calvarium. IMPRESSION: No acute intracranial hemorrhage or CT evidence for an acute cortical infarction. CT angiography of the head and neck INDICATION: Right-sided weakness. COMPARISON: None. TECHNIQUE: Axial CT imaging of the head and neck utilizing angiography protocol and performed after the intravenous administration of 75 cc Omnipaque 300 contrast. Multiplanar reformats and 3D MIP acquisitions were obtained. Encountered areas of stenosis are measured per NASCET criteria. One or more of the following individualized dose reduction techniques were utilized for this examination: 1. Automated exposure control 2. Adjustment of the mA and/or kV according to patient size 3. Use of iterative reconstruction technique. FINDINGS: CTA NECK: Arch/Proximal Great Vessels: Multifocal calcified and noncalcified atheromatous plaque. The great vessel origins are not included in the [id number]. No flow-limiting stenosis of the visualized left subclavian, left common carotid and brachiocephalic arteries. The right common carotid artery is patent throughout. Carotid Bifurcation/Cervical ICA: No stenosis through the skull base. Vertebral Arteries: Right-sided dominance. No stenosis or dissection throughout the neck. CTA HEAD: Posterior Circulation: Both intracranial vertebral arteries are patent and contribute to basilar flow. The basilar artery is widely patent. The adequately assessed vertebral and basilar artery branch vessels are patent. Moderate short segment stenosis of the left P1 segment, image 232 series 11. No stenosis is seen more distally on the left. Mild/moderate short segment stenosis of the right P2 segment, image 83 series 13. Short segment severe stenosis of the right posterior cerebral artery at the junction of the P2 and P3 segments, image 236 series 11. On the 3-D reformatted images there appears be occlusion at the P2-P3 junction but on the thin slice axials there is maintained opacification of the more distal right [employer] segments. Anterior Circulation: No stenosis of either intracranial internal carotid artery. Medial/inferior luminal outpouching seen bilaterally approaching the carotid terminus, but larger on the left, favored infundibula from the posterior communicating artery origin such as seen on the left on image 218 series 11. No large aneurysm. No central branch vessel occlusion or flow-limiting stenosis involving either total or anterior cerebral artery. Veins: Patent. MISCELLANEOUS: Emphysema. Multifactorial degenerative changes of the visualized spine with resultant central canal stenosis greatest at C3-C4 but not severe. Osseous neural foraminal encroachment is greatest on the left at C4-C5 and on the right at C3-C4. Osteopenia. Multiple missing teeth. IMPRESSION: CT Angio Neck: 1. Multifocal calcified and noncalcified atheromatous plaque but there is no flow-limiting stenosis or dissection throughout the extracranial carotid or vertebral arteries. 2. Chronic findings to include emphysema and advanced multifactorial cervical spine degenerative changes (greatest at C3-C4 and C4-C5). CT Angio Head: 1. No central occlusion is seen throughout the anterior or posterior cerebral circulation. 2. 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 Moderate stenosis of the left P1 segment and mild/moderate stenosis of the right P2 segment. No flow-limiting stenosis seen throughout the anterior circulation. If there is ongoing concern for an acute ischemic event MRI is recommended. 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 Also see stroke orders Thank you for letting me help of the patient's care. JAVAD SIEGEL MD Jul 29, 2020 09:29
[2020-07-29 10:59] VITALS: BP 158/72
[2020-07-29] MEDS ORDERED: MAG HYDROX/ALUMINUM HYD/SIMETH 30 ML ORAL.SUSP PO PRN (11:30)
[2020-07-29] MEDS ORDERED: 0.9 % SODIUM CHLORIDE 10 ML DISP.SYRIN. IV PRN (11:30)
[2020-07-29] MEDS ORDERED: DOCUSATE SODIUM 100 MG CAPSULE. PO PRN (11:30)
[2020-07-29] MEDS ORDERED: guaiFENesin ORAL 200 MG/10 ML LIQUID. PO PRN (11:30)
--- NOTE | 2020-07-29 11:36 | NUR ---
SS following for discharge planning. SS reviewed pt chart and discussed with pt RN. Pt is from home and is currently on room air. Pt had new CVA. PT/OT/ST ordered. SS will continue to follow for discharge planning.
[2020-07-29] MEDS ORDERED: IPRATRPIUM/ALBUTEROL 0.5/2.5MG 3 ML NEBU. NEB SCH (12:00)
[2020-07-29] MEDS: CALCIUM CARB/VIT D3 500/200 TABLET. PO SCH (12:30)
[2020-07-29] MEDS: CITALOPRAM 10 MG TABLET. PO SCH (12:30)
[2020-07-29] MEDS: CHOLECALCIFEROL (VITAMIN D3) 1,000 UNIT TABLET PO SCH (12:30)
[2020-07-29] MEDS: OMEGA-3 FATTY ACIDS/FISH OIL 1,000 MG CAPSULE. PO SCH (12:30)
--- NOTE | 2020-07-29 12:48 | RAD ---
EXAM: Carotid Doppler sonogram. HISTORY: Cerebral infarction. Atherosclerosis. TECHNIQUE: Donaldson scale and color Doppler sonographic evaluation of the neck with spectral waveform analysis was performed and static images are submitted for review. FINDINGS: There is intimal thickening involving the common carotid arteries and mild atherosclerotic plaque involving the carotid bifurcations. The peak systolic velocity within the right common carotid artery is 79 cm/sec. The peak systolic velocity within the right internal carotid artery is 90 cm/sec and the end diastolic velocity within the right internal carotid artery is 20 cm/sec. The right ICA/CCA ratio is 1.14. The peak systolic velocity within the left common carotid artery is 74 cm/sec. The peak systolic velocity within the left internal carotid artery is 55 cm/sec and the end diastolic velocity within the left internal carotid artery is 60 cm/sec. The left ICA/CCA ratio is 0.75. There is normal antegrade flow within both vertebral arteries. IMPRESSION: No Doppler evidence of greater than 50 percent stenosis involving the internal carotid arteries PQRS Compliance Statement - Stenosis calculations for CT, MR and conventional angiography are based upon measurement of the distal ICA diameter in accordance with the NASCET methodology. Stenosis calculations for carotid ultrasound studies are derived from validated velocity criteria which are known to correlate with the NASCET methodology. Electronically signed by: Rachana Wallace MD (07/29/2020 12:46 PM) [facility]
[2020-07-29] MEDS: ENOXAPARIN 40 MG/0.4 ML SYRINGE. SQ SCH (13:35)
[2020-07-29] MEDS: IV NORMAL SALINE 1000ML BAG 1,000 ML IV SCH (13:35)
--- NOTE | 2020-07-29 14:50 | PDOC2 ---
[facility] CONTACT REPRESENTATIVE 07/29/20 1450: CARDIAC CONSULT DATE OF CONSULT Date of Consult DATE: 07/29/20 TIME: 14:49 REASON FOR CONSULT Reason for Consult: CVA, HTN REFERRING PHYSICIAN Referring Physician: Fullbright SOURCE Source: Chart review HISTORY OF PRESENT ILLNESS HISTORY OF PRESENT ILLNESS This is a pleasant 79 yo female admitted for complains of right sided weakness and slurred speech. Neuro evaluated her and noted with acute CVA. No past CVA but notable for AAA with repair. She has not been taking any ASA nor statin accdg to her. Currently she is still slurring her speech and very weak on right arm and mild weakness to right leg. No visual or auditory disturbances. She continues to smoke tobacco. No chest pain, recent falls or injury and no SOA. PAST MEDICAL HISTORY Past Medical History Cardiovascular: HTN, Hyperlipidemia, Other (AAA) Pulmonary: COPD CENTRAL NERVOUS SYSTEM: Other (No pertinent history) GI: No pertinent hx Heme/Onc: No pertinent hx Hepatobiliary: No pertinent hx Musculoskeletal: Osteoarthritis Rheumatologic: No pertinent hx Infectious disease: No pertinent hx ENT: No pertinent hx Renal/: No pertinent hx Endocrine: No pertinent hx Dermatology: No pertinent hx PAST SURGICAL HISTORY Past Surgical History Hernia Repair (inguinal), Hysterectomy, Other (Endovascular repair of abdominal aortic aneurysm using modular stent graft) FAMILY HISTORY Family History: Coronary Artery Disease (father) SOCIAL HISTORY Smoke: <1 pack per day ALCOHOL: none Drugs: None Lives: with Family CURRENT MEDICATIONS CURRENT MEDICATIONS Current Medications Medications (Trade) Dose Ordered Sig/Franky Route PRN Reason Start Time Stop Time Status Last Admin Dose Admin Labetalol HCl (Normodyne Iv Push) 20 mg 1X ONCE IVP 07/29/20 03:30 07/29/20 03:31 DC 07/29/20 03:53 Iohexol (Omnipaque 350 Mg/ml) 75 ml 1X ONCE IV 07/29/20 03:30 07/29/20 03:31 DC 07/29/20 03:30 Aspirin (Aspirin Chewable) 324 mg 1X ONCE PO 07/29/20 04:00 07/29/20 04:01 DC 07/29/20 03:57 Sodium Chloride 1,000 ml @ 70 mls/hr [id number] IV 07/29/20 12:00 07/29/20 13:35 Enoxaparin Sodium (Lovenox 40mg Syringe) 40 mg Q24H SQ 07/29/20 12:00 07/29/20 13:35 ALLERGIES ALLERGIES: Coded Allergies: codeine (Verified Adverse Reaction, Intermediate, Nausea, 12/07/14) ROS Review of System 14 point ROS evaluated with pertinent positives noted per HPI PHYSICAL EXAM General: Alert, Oriented X3, Cooperative, No acute distress HEENT: Atraumatic, Mucous membr. moist/pink Lungs: Other (faint crackles) Heart: Regular rate (SR), Other (distant heart sounds) Abdomen: Soft, No tenderness Extremities: No cyanosis, No edema Skin: No breakdown, No significant lesion Neuro: Sensation intact, Other (dysarthria) Psych/Mental Status: Mental status NL, Mood NL MUSCULOSKELETAL: Osteoarthritic changes both hands, Other (right side hemiparesis) VITALS/I&O VITALS/I&O: Vital Signs Date Time Temp Pulse Resp B/P (MAP) Pulse Ox O2 Delivery O2 Flow Rate FiO2 07/29/20 10:59 98.4 60 18 158/72 (100) 91 Room Air 98.4 LABS Lab: Laboratory Tests Test 07/29/20 03:00 White Blood Count 7.8 x10^3/uL (4.0-11.0) Red Blood Count 4.45 x10^6/uL (3.50-5.40) Hemoglobin 13.9 g/dL (12.0-15.5) Hematocrit 41.0 % (36.0-47.0) Mean Corpuscular Volume 92 fL (79-100) Mean Corpuscular Hemoglobin 31 pg (25-35) Mean Corpuscular Hemoglobin Concent 34 g/dL (31-37) Red Cell Distribution Width 15.3 % (11.5-14.5) H Platelet Count 221 x10^3/uL (140-400) Neutrophils (%) (Auto) 58 % (31-73) Lymphocytes (%) (Auto) 28 % (24-48) Monocytes (%) (Auto) 10 % (0-9) H Eosinophils (%) (Auto) 3 % (0-3) Basophils (%) (Auto) 1 % (0-3) Neutrophils # (Auto) 4.5 x10^3/uL (1.8-7.7) Lymphocytes # (Auto) 2.2 x10^3/uL (1.0-4.8) Monocytes # (Auto) 0.8 x10^3/uL (0.0-1.1) Eosinophils # (Auto) 0.2 x10^3/uL (0.0-0.7) Basophils # (Auto) 0.1 x10^3/uL (0.0-0.2) Prothrombin Time 12.1 SEC (11.7-14.0) Prothrombin Time INR 0.9 (0.8-1.1) Activated Partial Thromboplast Time 32 SEC (24-38) Sodium Level 140 mmol/L (136-145) Potassium Level 3.8 mmol/L (3.5-5.1) Chloride Level 104 mmol/L (98-107) Carbon Dioxide Level 29 mmol/L (21-32) Anion Gap 7 (6-14) Blood Urea Nitrogen 23 mg/dL (7-20) H Creatinine 1.0 mg/dL (0.6-1.0) Estimated GFR (Cockcroft-Gault) 53.3 BUN/Creatinine Ratio 23 (6-20) H Glucose Level 106 mg/dL (70-99) H Calcium Level 8.8 mg/dL (8.5-10.1) Total Bilirubin 0.2 mg/dL (0.2-1.0) Aspartate Amino Transferase (AST) 28 U/L (15-37) Alanine Aminotransferase (ALT) 27 U/L (14-59) Alkaline Phosphatase 196 U/L (46-116) H Troponin I Quantitative 0.019 ng/mL (0.000-0.055) Total Protein 6.4 g/dL (6.4-8.2) Albumin 3.1 g/dL (3.4-5.0) L Albumin/Globulin Ratio 0.9 (1.0-1.7) L Triglycerides Level 133 mg/dL (0-150) Cholesterol Level 232 mg/dL (0-200) H LDL Cholesterol, Calculated 149 mg/dL (0-100) H VLDL Cholesterol, Calculated 27 mg/dL (0-40) Non-HDL Cholesterol Calculated 176 mg/dL (0-129) H HDL Cholesterol 56 mg/dL (40-60) Cholesterol/HDL Ratio 4.1 Laboratory Tests 07/29/20 03:00 Laboratory Tests 07/29/20 03:00 ASSESSMENT/PLAN ASSESSMENT/PLAN 1. 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 Has not been taking ASA at home 2. Accelerated HTN 3. HLP: not on goal 4. Hx of AAA with endovascular repair 5. COPD with continued tobaccoism Recommendations 1. Statin. antiplatelet per neurology 2. TTE 3. Continue home lisinopril add norvasc. Monitor rhythm 4. Smoking cessation BERYL CISNEROS MD 07/29/20 3668: CARDIAC CONSULT ASSESSMENT/PLAN ASSESSMENT/PLAN Patient seen and evaluated CVA syndrome. Neurology evaluating. Antiplatelet treatment as per neurology. Accelerated hypertension. Improved. Adding Norvasc. Continue to monitor. History of AAA with endovascular repair. Hyperlipidemia. Statins. Monitor lab. COPD Thank you for allowing us to participate in the care of your patient. ALEKSANDER SHI APRN Jul 29, 2020 14:50 BERYL CISNEROS MD Jul 29, 2020 17:18
[2020-07-29 15:00] VITALS: BP 203/82
[2020-07-29] MEDS ORDERED: IV RINGERS,LACTATED 1000ML 1,000 ML IV SCH (15:16)
[2020-07-29] MEDS: IPRATRPIUM/ALBUTEROL 0.5/2.5MG 3 ML NEBU. NEB SCH ×3 (15:19→23:47)
[2020-07-29] MEDS: hydrALAZINE 20 MG/ML VIAL. IVP PRN ×2 (15:19→20:36)
--- NOTE | 2020-07-29 15:26 | PDOC ---
Date and Time Called for JONO brain and lumber spine at 15:15. Need for IV sedation/anesthesia to accomplish scans. Plan to do at 16:30 Patient just had juice and pudding, will need to be NPO >6hr for us to administer sedation. D/w MRI- plan for tomorrow 09:30 Current Medications Current Medications Labetalol HCl (Normodyne Iv Push) 20 mg 1X ONCE IVP Last administered on 07/29/20at 03:53; Start 07/29/20 at 03:30; Stop 07/29/20 at 03:31; Status DC Iohexol (Omnipaque 350 Mg/ml) 75 ml 1X ONCE IV Last administered on 07/29/20at 03:30; Start 07/29/20 at 03:30; Stop 07/29/20 at 03:31; Status DC Info (CONTRAST GIVEN -- Rx MONITORING) 1 each PRN DAILY PRN MC SEE COMMENTS; Start 07/29/20 at 03:15; Stop 07/31/20 at 03:14 Aspirin (Aspirin Chewable) 324 mg 1X ONCE PO Last administered on 07/29/20at 03:57; Start 07/29/20 at 04:00; Stop 07/29/20 at 04:01; Status DC Ondansetron HCl (Zofran) 4 mg PRN Q8HRS PRN IV NAUSEA/VOMITING 1ST CHOICE; Start 07/29/20 at 04:00; Stop 07/30/20 at 03:59 Acetaminophen (Tylenol) 650 mg PRN Q6HRS PRN PO TEMP > 100.4F; Start 07/29/20 at 08:45 Acetaminophen (Tylenol Supp) 650 mg PRN Q4HRS PRN AR TEMP > 100.4F; Start 07/29/20 at 08:45; Stop 07/29/20 at 13:03; Status DC Aspirin (Ecotrin) 325 mg DAILYWBKFT PO ; Start 07/30/20 at 08:00 Aspirin (Aspirin Rectal Supp) 300 mg PRN DAILY PRN AR IF UNABLE TO TAKE PO; Start 07/29/20 at 08:45 Sodium Chloride (Normal Saline Flush) 3 ml QSHIFT PRN IV AFTER MEDS AND BLOOD DRAWS; Start 07/29/20 at 11:30 Sodium Chloride 1,000 ml @ 70 mls/hr [id number] IV Last administered on 07/29/20at 13:35; Start 07/29/20 at 12:00 Acetaminophen (Tylenol Supp) 650 mg PRN Q4HRS PRN [place] TEMP OVER 100.4F OR MILD PAIN; Start 07/29/20 at 11:30 Al Hydroxide/Mg Hydroxide (Mylanta Plus Xs) 30 ml PRN DAILY PRN PO HEARTBURN / GAS; Start 07/29/20 at 11:30 Docusate Sodium (Colace) 100 mg PRN BID PRN PO HARD STOOLS; Start 07/29/20 at 11:30 Albuterol/ Ipratropium (Duoneb) 3 ml Q4HRS NEB ; Start 07/29/20 at 12:00; Stop 07/29/20 at 11:34; Status DC Guaifenesin (Robitussin) 200 mg PRN Q4HRS PRN PO COUGH; Start 07/29/20 at 11:30 Enoxaparin Sodium (Lovenox 40mg Syringe) 40 mg Q24H SQ Last administered on 07/29/20at 13:35; Start 07/29/20 at 12:00 Aspirin (Ecotrin) 81 mg DAILY08 PO ; Start 07/30/20 at 08:00; Status UNV Citalopram Hydrobromide (CeleXA) 10 mg DAILY07 PO ; Start 07/29/20 at 12:30 Simvastatin (Zocor) 40 mg HS PO ; Start 07/29/20 at 21:00 Calcium/Vitamin D (Oscal D 500mg/ 200uts) 1 tab DAILY PO ; Start 07/29/20 at 12:30 Vitamin D (Vitamin D3) 1,000 unit DAILY PO ; Start 07/29/20 at 12:30 Fish Oil (Fish Oil) 1,000 mg DAILY PO ; Start 07/29/20 at 12:30 Albuterol/ Ipratropium (Duoneb) 3 ml Q4HRS NEB Last administered on 07/29/20at 15:19; Start 07/29/20 at 16:00 Hydralazine HCl (Apresoline Inj) 10 mg PRN Q4HRS PRN IVP ELEVATED BP, SEE COMMENTS Last administered on 07/29/20at 15:19; Start 07/29/20 at 15:15 Ringer's Solution 1,000 ml @ 50 mls/hr Q20H IV ; Start 07/29/20 at 15:16; Stop 07/30/20 at 03:15 Active Scripts Active Reported [place] 5-325 Tablet (Acetaminophen/Hydrocodone Bitart) 1 Each Tablet 1-2 Tab PO Q4-6HRS Doxycycline Hyclate 100 Mg Capsule 1 Cap PO BID 7 Days Vitamin D (Cholecalciferol (Vitamin D3)) 1,000 Unit Capsule 1 Cap PO DAILY Calcium + D Soft Chewable Tab (Ca Carbonate/Vitamin D3/Vit K) 1 Each Tab.chew 1 Each PO DAILY Fish Oil ([place]-3 Fatty Acids) 500 Mg Capsule 500 Mg PO DAILY Simvastatin 40 Mg Tablet 40 Mg PO Aspirin Ec (Aspirin) 81 Mg Tablet.dr 81 Mg PO Citalopram Hbr (Citalopram Hydrobromide) 10 Mg Tablet 10 Mg PO Lisinopril 20 Mg Tablet 20 Mg PO Pertinent Labs/Test Laboratory Tests Test 07/29/20 03:00 White Blood Count 7.8 x10^3/uL (4.0-11.0) Red Blood Count 4.45 x10^6/uL (3.50-5.40) Hemoglobin 13.9 g/dL (12.0-15.5) Hematocrit 41.0 % (36.0-47.0) Mean Corpuscular Volume 92 fL (79-100) Mean Corpuscular Hemoglobin 31 pg (25-35) Mean Corpuscular Hemoglobin Concent 34 g/dL (31-37) Red Cell Distribution Width 15.3 % (11.5-14.5) Platelet Count 221 x10^3/uL (140-400) Neutrophils (%) (Auto) 58 % (31-73) Lymphocytes (%) (Auto) 28 % (24-48) Monocytes (%) (Auto) 10 % (0-9) Eosinophils (%) (Auto) 3 % (0-3) Basophils (%) (Auto) 1 % (0-3) Neutrophils # (Auto) 4.5 x10^3/uL (1.8-7.7) Lymphocytes # (Auto) 2.2 x10^3/uL (1.0-4.8) Monocytes # (Auto) 0.8 x10^3/uL (0.0-1.1) Eosinophils # (Auto) 0.2 x10^3/uL (0.0-0.7) Basophils # (Auto) 0.1 x10^3/uL (0.0-0.2) Prothrombin Time 12.1 SEC (11.7-14.0) Prothromb Time International Ratio 0.9 (0.8-1.1) Activated Partial Thromboplast Time 32 SEC (24-38) Sodium Level 140 mmol/L (136-145) Potassium Level 3.8 mmol/L (3.5-5.1) Chloride Level 104 mmol/L (98-107) Carbon Dioxide Level 29 mmol/L (21-32) Anion Gap 7 (6-14) Blood Urea Nitrogen 23 mg/dL (7-20) Creatinine 1.0 mg/dL (0.6-1.0) Estimated GFR (Cockcroft-Gault) 53.3 BUN/Creatinine Ratio 23 (6-20) Glucose Level 106 mg/dL (70-99) Calcium Level 8.8 mg/dL (8.5-10.1) Total Bilirubin 0.2 mg/dL (0.2-1.0) Aspartate Amino Transf (AST/SGOT) 28 U/L (15-37) Alanine Aminotransferase (ALT/SGPT) 27 U/L (14-59) Alkaline Phosphatase 196 U/L (46-116) Troponin I Quantitative 0.019 ng/mL (0.000-0.055) Total Protein 6.4 g/dL (6.4-8.2) Albumin 3.1 g/dL (3.4-5.0) Albumin/Globulin Ratio 0.9 (1.0-1.7) Triglycerides Level 133 mg/dL (0-150) Cholesterol Level 232 mg/dL (0-200) LDL Cholesterol, Calculated 149 mg/dL (0-100) VLDL Cholesterol, Calculated 27 mg/dL (0-40) Non-HDL Cholesterol Calculated 176 mg/dL (0-129) HDL Cholesterol 56 mg/dL (40-60) Cholesterol/HDL Ratio 4.1 Laboratory Tests Test 07/29/20 03:00 White Blood Count 7.8 x10^3/uL (4.0-11.0) Red Blood Count 4.45 x10^6/uL (3.50-5.40) Hemoglobin 13.9 g/dL (12.0-15.5) Hematocrit 41.0 % (36.0-47.0) Mean Corpuscular Volume 92 fL (79-100) Mean Corpuscular Hemoglobin 31 pg (25-35) Mean Corpuscular Hemoglobin Concent 34 g/dL (31-37) Red Cell Distribution Width 15.3 % (11.5-14.5) Platelet Count 221 x10^3/uL (140-400) Neutrophils (%) (Auto) 58 % (31-73) Lymphocytes (%) (Auto) 28 % (24-48) Monocytes (%) (Auto) 10 % (0-9) Eosinophils (%) (Auto) 3 % (0-3) Basophils (%) (Auto) 1 % (0-3) Neutrophils # (Auto) 4.5 x10^3/uL (1.8-7.7) Lymphocytes # (Auto) 2.2 x10^3/uL (1.0-4.8) Monocytes # (Auto) 0.8 x10^3/uL (0.0-1.1) Eosinophils # (Auto) 0.2 x10^3/uL (0.0-0.7) Basophils # (Auto) 0.1 x10^3/uL (0.0-0.2) Prothrombin Time 12.1 SEC (11.7-14.0) Prothromb Time International Ratio 0.9 (0.8-1.1) Activated Partial Thromboplast Time 32 SEC (24-38) Sodium Level 140 mmol/L (136-145) Potassium Level 3.8 mmol/L (3.5-5.1) Chloride Level 104 mmol/L (98-107) Carbon Dioxide Level 29 mmol/L (21-32) Anion Gap 7 (6-14) Blood Urea Nitrogen 23 mg/dL (7-20) Creatinine 1.0 mg/dL (0.6-1.0) Estimated GFR (Cockcroft-Gault) 53.3 BUN/Creatinine Ratio 23 (6-20) Glucose Level 106 mg/dL (70-99) Calcium Level 8.8 mg/dL (8.5-10.1) Total Bilirubin 0.2 mg/dL (0.2-1.0) Aspartate Amino Transf (AST/SGOT) 28 U/L (15-37) Alanine Aminotransferase (ALT/SGPT) 27 U/L (14-59) Alkaline Phosphatase 196 U/L (46-116) Troponin I Quantitative 0.019 ng/mL (0.000-0.055) Total Protein 6.4 g/dL (6.4-8.2) Albumin 3.1 g/dL (3.4-5.0) Albumin/Globulin Ratio 0.9 (1.0-1.7) Triglycerides Level 133 mg/dL (0-150) Cholesterol Level 232 mg/dL (0-200) LDL Cholesterol, Calculated 149 mg/dL (0-100) VLDL Cholesterol, Calculated 27 mg/dL (0-40) Non-HDL Cholesterol Calculated 176 mg/dL (0-129) HDL Cholesterol 56 mg/dL (40-60) Cholesterol/HDL Ratio 4.1 LAST VITALS Vital Signs Date Time Temp Pulse Resp B/P (MAP) Pulse Ox O2 Delivery O2 Flow Rate FiO2 07/29/20 15:20 95 Room Air 07/29/20 15:19 64 203/82 07/29/20 10:59 98.4 18 98.4 NASIR BAIRES MD Jul 29, 2020 15:26
[2020-07-29 15:28] VITALS: BP 169/72
[2020-07-29] MEDS ORDERED: CITA20TA6 PO (15:49)
--- NOTE | 2020-07-29 17:13 | RAD ---
EXAM: Brain MRI without contrast. HISTORY: Stroke. TECHNIQUE: Multiplanar, multisequence magnetic resonance imaging of the brain was performed without contrast. COMPARISON: CT dated 07/29/2020. FINDINGS: There is restricted diffusion consistent with acute infarction involving the left centrum semiovale. There is no hemorrhage. There is no mass effect or midline shift. There is no hydrocephalus. There are scattered areas of signal change throughout the cerebral white matter and theresa, most commonly due to chronic small vessel disease in patients of this age. There is cerebral volume loss. There is evidence of lens surgery. There are tiny left greater than right maxillary sinus mucous retention cyst. There is ethmoid sinus mucosal thickening. There is minimal fluid within the mastoid air cells. There are normal flow voids within the cerebral vessels. There is no suspicious calvarial lesion. IMPRESSION: 1. Small acute infarct involving the left centrum semiovale. 2. Bilateral cerebral white matter changes, likely due to chronic small vessel disease. 3. Cerebral atrophy. Findings discussed with Corrina, the nurse caring for the patient, at 1700 hours on 07/29/2020. FOR INTERNAL CODING PURPOSES RESULT CODE: (C) Electronically signed by: Rachana Wallace MD (07/29/2020 5:10 PM) [facility]
--- NOTE | 2020-07-29 18:13 | NUR ---
GETTING CAB ARRANGED FOR PT TO DISCHARGE HOME Addendum: 07/29/20 at 1846 by CARLYLE CR RN wrong pt
[2020-07-29] MEDS: LISINOPRIL 20 MG TABLET PO SCH (18:38)
[2020-07-29] MEDS: amLODIPine BESYLATE 10 MG TABLET PO SCH (18:38)
--- NOTE | 2020-07-29 18:46 | NUR ---
pt worked with pt/ot/st today. had mri and carotid doppler. pt swallowed pills well. 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 pt blood pressure elevated and dr notified, prn medication given.
[2020-07-29 19:00] VITALS: BP 185/86
[2020-07-29] MEDS: ATORVASTATIN CALCIUM 20 MG TABLET PO SCH (20:35)
[2020-07-29] MEDS ORDERED: SIMVASTATIN 40 MG TABLET. PO SCH (21:00)
[2020-07-29 22:45] VITALS: BP 145/63
[2020-07-30 02:50] VITALS: BP 162/72
[2020-07-30] MEDS: IPRATRPIUM/ALBUTEROL 0.5/2.5MG 3 ML NEBU. NEB SCH ×5 (04:00→20:00)
[2020-07-30] MEDS: IV NORMAL SALINE 1000ML BAG 1,000 ML IV SCH ×2 (05:48→19:24)
[2020-07-30 07:00] VITALS: BP 169/72
[2020-07-30] MEDS ORDERED: ASPIRIN ENTERIC COATED 81 MG TABLET.DR. PO SCH (08:00)
[2020-07-30] MEDS: CHOLECALCIFEROL (VITAMIN D3) 1,000 UNIT TABLET PO SCH (08:52)
[2020-07-30] MEDS: ASPIRIN ENTERIC COATED 325 MG TABLET.DR. PO SCH (08:52)
[2020-07-30] MEDS: OMEGA-3 FATTY ACIDS/FISH OIL 1,000 MG CAPSULE. PO SCH (08:52)
[2020-07-30] MEDS: CITALOPRAM 10 MG TABLET. PO SCH ×2 (08:52→19:00)
[2020-07-30] MEDS: CALCIUM CARB/VIT D3 500/200 TABLET. PO SCH (08:53)
[2020-07-30] MEDS: LISINOPRIL 20 MG TABLET PO SCH (08:53)
[2020-07-30] MEDS: amLODIPine BESYLATE 10 MG TABLET PO SCH (08:53)
--- NOTE | 2020-07-30 10:10 | PDOC ---
PROGRESS NOTES Date of Service: DATE: 07/30/20 TIME: 10:09 Chief Complaint Chief Complaint VTE Prophylaxis Ordered VTE Prophylaxis Devices: No VTE Pharmacological Prophylaxi: Yes Assessment/Plan Assessment/Plan IMPRESSION: Acute CVA, LEFT HEMISPHERE Small acute infarct involving the left centrum semiovale. 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 Moderate stenosis of the left P1 segment and mild/moderate stenosis of the right P2 segment. 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 ON CT HEAD No acute intracranial hemorrhage or CT evidence for an acute cortical infarction. Hypertension severe dysarthria. EMPHYSEMA Accelerated HTN. HLP: not on goal. Adjusting medications Hx AAA with endovascular repair COPD with continued tobaccoism PLAN ADMIT CVC BED NEUROLOGY CONSULT PT/OT/ST neurochecks q 4 hrs dvt prophylasis MRI of the brain Echocardiogram DISCUSSED DPOA NEED X 10 MIN CARDIOLOGY CONSULT SMOKING CESSATION EDUCATION PROVIDED 12 MIN 37 MIN PT EXAM, CHART REVIEW, > 50% OF TIME SPENT WITH EXAM, CHART REVIEW, PT CARE COORDINATION Justifications for Admission Justifications for Admission Other Justification History of Present Illness History of Present Illness Identification/Chief Complaint Chief Complaint 79 year old FEMALE SMOKER presents with right sided weakness, last known normal was at 2300 on 07/28. Patient noticed difficulty using her right hand. // weakness in the right leg and dysarthria. Patient states symptoms are better than when they started but still has some difficulty touching her nose with her right hand. 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 Moderate stenosis of the left P1 segment and mild/moderate stenosis of the right P2 segment. on cta head NEEDS DPOA REVIEW, 12 MIN Past Medical History Past Medical History Past Medical History Past Medical History Past Medical History: COPD, Hypertension Past Surgical History: Hysterectomy, Other Additional Past Surgical Histo: AAA REPAIR W/ STENT PLACEMENT Smoking Status: Current Every Day Smoker Alcohol Use: None Drug Use: None FHX COPD Cardiovascular: HTN, Hyperlipidemia, Other Pulmonary: COPD CENTRAL NERVOUS SYSTEM: Other GI: No pertinent hx Heme/Onc: No pertinent hx Hepatobiliary: No pertinent hx Musculoskeletal: Osteoarthritis Rheumatologic: No pertinent hx Infectious disease: No pertinent hx Renal/: No pertinent hx Endocrine: No pertinent hx Past Surgical History Past Surgical History: Hernia Repair, Hysterectomy, Other Family History Family History: Coronary Artery Disease, High Cholestrol, Hypertension Social History Smoke: <1 pack per day ALCOHOL: none Drugs: None Vitals Vitals Vital Signs Date Time Temp Pulse Resp B/P (MAP) Pulse Ox O2 Delivery O2 Flow Rate FiO2 07/30/20 08:53 85 169/72 07/30/20 08:00 Room Air 07/30/20 07:46 96 2.0 07/30/20 07:00 98.6 18 98.6 Physical Exam General: Alert, Oriented X3, Cooperative, No acute distress Heart: Regular rate (SR), Normal S1, Other (distant heart sounds) Lungs: Clear Abdomen: Soft, No tenderness Extremities: No cyanosis, No edema Skin: No breakdown, No significant lesion Labs LABS EXAM: Carotid Doppler sonogram. HISTORY: Cerebral infarction. Atherosclerosis. TECHNIQUE: Donaldson scale and color Doppler sonographic evaluation of the neck with spectral waveform analysis was performed and static images are submitted for review. FINDINGS: There is intimal thickening involving the common carotid arteries and mild atherosclerotic plaque involving the carotid bifurcations. The peak systolic velocity within the right common carotid artery is 79 cm/sec. The peak systolic velocity within the right internal carotid artery is 90 cm/sec and the end diastolic velocity within the right internal carotid artery is 20 cm/sec. The right ICA/CCA ratio is 1.14. The peak systolic velocity within the left common carotid artery is 74 cm/sec. The peak systolic velocity within the left internal carotid artery is 55 cm/sec and the end diastolic velocity within the left internal carotid artery is 60 cm/sec. The left ICA/CCA ratio is 0.75. There is normal antegrade flow within both vertebral arteries. IMPRESSION: No Doppler evidence of greater than 50 percent stenosis involving the internal carotid arteries PQRS Compliance Statement - Stenosis calculations for CT, MR and conventional angiography are based upon measurement of the distal ICA diameter in accordance with the NASCET methodology. Stenosis calculations for carotid ultrasound studies are derived from validated velocity criteria which are known to correlate with the NASCET methodology. Electronically signed by: Rachana Wallace MD (07/29/2020 12:46 PM) [facility] DICTATED and SIGNED BY: RACHANA WALLACE MD EXAM: Brain MRI without contrast. HISTORY: Stroke. TECHNIQUE: Multiplanar, multisequence magnetic resonance imaging of the brain was performed without contrast. COMPARISON: CT dated 07/29/2020. FINDINGS: There is restricted diffusion consistent with acute infarction involving the left centrum semiovale. There is no hemorrhage. There is no mass effect or midline shift. There is no hydrocephalus. There are scattered areas of signal change throughout the cerebral white matter and theresa, most commonly due to chronic small vessel disease in patients of this age. There is cerebral volume loss. There is evidence of lens surgery. There are tiny left greater than right maxillary sinus mucous retention cyst. There is ethmoid sinus mucosal thickening. There is minimal fluid within the mastoid air cells. There are normal flow voids within the cerebral vessels. There is no suspicious calvarial lesion. IMPRESSION: 1. Small acute infarct involving the left centrum semiovale. 2. Bilateral cerebral white matter changes, likely due to chronic small vessel disease. 3. Cerebral atrophy. Findings discussed with Corrina, the nurse caring for the patient, at 1700 hours on 07/29/2020. FOR INTERNAL CODING PURPOSES Assessment and Plan Assessmemt and Plan Problems Medical Problems: (1) Accelerated hypertension Status: Acute (2) CVA (cerebral vascular accident) Status: Acute Comment Review of Relevant I have reviewed the following items carlitos (where applicable) has been applied. Labs Laboratory Tests Test 07/29/20 03:00 White Blood Count 7.8 x10^3/uL (4.0-11.0) Red Blood Count 4.45 x10^6/uL (3.50-5.40) Hemoglobin 13.9 g/dL (12.0-15.5) Hematocrit 41.0 % (36.0-47.0) Mean Corpuscular Volume 92 fL (79-100) Mean Corpuscular Hemoglobin 31 pg (25-35) Mean Corpuscular Hemoglobin Concent 34 g/dL (31-37) Red Cell Distribution Width 15.3 % (11.5-14.5) Platelet Count 221 x10^3/uL (140-400) Neutrophils (%) (Auto) 58 % (31-73) Lymphocytes (%) (Auto) 28 % (24-48) Monocytes (%) (Auto) 10 % (0-9) Eosinophils (%) (Auto) 3 % (0-3) Basophils (%) (Auto) 1 % (0-3) Neutrophils # (Auto) 4.5 x10^3/uL (1.8-7.7) Lymphocytes # (Auto) 2.2 x10^3/uL (1.0-4.8) Monocytes # (Auto) 0.8 x10^3/uL (0.0-1.1) Eosinophils # (Auto) 0.2 x10^3/uL (0.0-0.7) Basophils # (Auto) 0.1 x10^3/uL (0.0-0.2) Prothrombin Time 12.1 SEC (11.7-14.0) Prothromb Time International Ratio 0.9 (0.8-1.1) Activated Partial Thromboplast Time 32 SEC (24-38) Sodium Level 140 mmol/L (136-145) Potassium Level 3.8 mmol/L (3.5-5.1) Chloride Level 104 mmol/L (98-107) Carbon Dioxide Level 29 mmol/L (21-32) Anion Gap 7 (6-14) Blood Urea Nitrogen 23 mg/dL (7-20) Creatinine 1.0 mg/dL (0.6-1.0) Estimated GFR (Cockcroft-Gault) 53.3 BUN/Creatinine Ratio 23 (6-20) Glucose Level 106 mg/dL (70-99) Calcium Level 8.8 mg/dL (8.5-10.1) Total Bilirubin 0.2 mg/dL (0.2-1.0) Aspartate Amino Transf (AST/SGOT) 28 U/L (15-37) Alanine Aminotransferase (ALT/SGPT) 27 U/L (14-59) Alkaline Phosphatase 196 U/L (46-116) Troponin I Quantitative 0.019 ng/mL (0.000-0.055) Total Protein 6.4 g/dL (6.4-8.2) Albumin 3.1 g/dL (3.4-5.0) Albumin/Globulin Ratio 0.9 (1.0-1.7) Triglycerides Level 133 mg/dL (0-150) Cholesterol Level 232 mg/dL (0-200) LDL Cholesterol, Calculated 149 mg/dL (0-100) VLDL Cholesterol, Calculated 27 mg/dL (0-40) Non-HDL Cholesterol Calculated 176 mg/dL (0-129) HDL Cholesterol 56 mg/dL (40-60) Cholesterol/HDL Ratio 4.1 Medications Current Medications Labetalol HCl (Normodyne Iv Push) 20 mg 1X ONCE IVP Last administered on 07/29/20at 03:53; Start 07/29/20 at 03:30; Stop 07/29/20 at 03:31; Status DC Iohexol (Omnipaque 350 Mg/ml) 75 ml 1X ONCE IV Last administered on 07/29/20at 03:30; Start 07/29/20 at 03:30; Stop 07/29/20 at 03:31; Status DC Info (CONTRAST GIVEN -- Rx MONITORING) 1 each PRN DAILY PRN MC SEE COMMENTS; Start 07/29/20 at 03:15; Stop 07/31/20 at 03:14 Aspirin (Aspirin Chewable) 324 mg 1X ONCE PO Last administered on 07/29/20at 03:57; Start 07/29/20 at 04:00; Stop 07/29/20 at 04:01; Status DC Ondansetron HCl (Zofran) 4 mg PRN Q8HRS PRN IV NAUSEA/VOMITING 1ST CHOICE Last administered on 07/29/20at 22:09; Start 07/29/20 at 04:00; Stop 07/30/20 at 03:59; Status DC Acetaminophen (Tylenol) 650 mg PRN Q6HRS PRN PO TEMP > 100.4F; Start 07/29/20 at 08:45 Acetaminophen (Tylenol Supp) 650 mg PRN Q4HRS PRN [place] TEMP > 100.4F; Start 07/29/20 at 08:45; Stop 07/29/20 at 13:03; Status DC Aspirin (Ecotrin) 325 mg DAILYWBKFT PO Last administered on 07/30/20at 08:52; Start 07/30/20 at 08:00 Aspirin (Aspirin Rectal Supp) 300 mg PRN DAILY PRN UT IF UNABLE TO TAKE PO; Start 07/29/20 at 08:45 Sodium Chloride (Normal Saline Flush) 3 ml QSHIFT PRN IV AFTER MEDS AND BLOOD DRAWS; Start 07/29/20 at 11:30 Sodium Chloride 1,000 ml @ 70 mls/hr [id number] IV Last administered on 07/30/20at 05:48; Start 07/29/20 at 12:00 Acetaminophen (Tylenol Supp) 650 mg PRN Q4HRS PRN [place] TEMP OVER 100.4F OR MILD PAIN; Start 07/29/20 at 11:30 Al Hydroxide/Mg Hydroxide (Mylanta Plus Xs) 30 ml PRN DAILY PRN PO HEARTBURN / GAS; Start 07/29/20 at 11:30 Docusate Sodium (Colace) 100 mg PRN BID PRN PO HARD STOOLS; Start 07/29/20 at 11:30 Albuterol/ Ipratropium (Duoneb) 3 ml Q4HRS NEB ; Start 07/29/20 at 12:00; Stop 07/29/20 at 11:34; Status DC Guaifenesin (Robitussin) 200 mg PRN Q4HRS PRN PO COUGH; Start 07/29/20 at 11:30 Enoxaparin Sodium (Lovenox 40mg Syringe) 40 mg Q24H SQ Last administered on 07/29/20at 13:35; Start 07/29/20 at 12:00 Aspirin (Ecotrin) 81 mg DAILY08 PO ; Start 07/30/20 at 08:00; Status UNV Citalopram Hydrobromide (CeleXA) 10 mg DAILY07 PO Last administered on 07/30/20at 08:52; Start 07/29/20 at 12:30 Simvastatin (Zocor) 40 mg HS PO ; Start 07/29/20 at 21:00; Stop 07/29/20 at 15:25; Status DC Calcium/Vitamin D (Oscal D 500mg/ 200uts) 1 tab DAILY PO Last administered on 07/30/20at 08:53; Start 07/29/20 at 12:30 Vitamin D (Vitamin D3) 1,000 unit DAILY PO Last administered on 07/30/20at 08:52; Start 07/29/20 at 12:30 Fish Oil (Fish Oil) 1,000 mg DAILY PO Last administered on 07/30/20at 08:52; Start 07/29/20 at 12:30 Albuterol/ Ipratropium (Duoneb) 3 ml Q4HRS NEB Last administered on 07/30/20at 07:46; Start 07/29/20 at 16:00 Hydralazine HCl (Apresoline Inj) 10 mg PRN Q4HRS PRN IVP ELEVATED BP, SEE COMMENTS Last administered on 07/29/20at 20:36; Start 07/29/20 at 15:15 Ringer's Solution 1,000 ml @ 50 mls/hr Q20H IV ; Start 07/29/20 at 15:16; Stop 07/30/20 at 03:15; Status DC Amlodipine Besylate (Norvasc) 10 mg DAILY PO Last administered on 07/30/20at 08:53; Start 07/29/20 at 15:30 Lisinopril (Prinivil) 20 mg DAILY PO Last administered on 07/30/20at 08:53; Start 07/29/20 at 15:30 Atorvastatin Calcium (Lipitor) 20 mg QHS PO Last administered on 07/29/20at 20:35; Start 07/29/20 at 21:00 Active Scripts Active Reported Citalopram Hbr (Citalopram Hydrobromide) 20 Mg Tablet 1 Tab PO DAILY [place] 5-325 Tablet (Acetaminophen/Hydrocodone Bitart) 1 Each Tablet 1-2 Tab PO Q4-6HRS Doxycycline Hyclate 100 Mg Capsule 1 Cap PO BID 7 Days Vitamin D (Cholecalciferol (Vitamin D3)) 1,000 Unit Capsule 1 Cap PO DAILY Calcium + D Soft Chewable Tab (Ca Carbonate/Vitamin D3/Vit K) 1 Each Tab.chew 1 Each PO DAILY Fish Oil ([place]-3 Fatty Acids) 500 Mg Capsule 500 Mg PO DAILY Simvastatin 40 Mg Tablet 40 Mg PO Aspirin Ec (Aspirin) 81 Mg Tablet.dr 81 Mg PO Citalopram Hbr (Citalopram Hydrobromide) 10 Mg Tablet 10 Mg PO Lisinopril 20 Mg Tablet 20 Mg PO Vitals/I & O Vital Sign - Last 24 Hours 07/29/20 07/29/20 07/29/20 07/29/20 10:59 15:00 15:19 15:20 Temp 98.4 97.9 98.4 97.9 Pulse 60 62 64 Resp 18 20 B/P (MAP) 158/72 (100) 203/82 (122) 203/82 Pulse Ox 91 91 95 O2 Delivery Room Air Room Air Room Air 07/29/20 07/29/20 07/29/20 07/29/20 15:28 18:38 18:38 19:00 Temp 98.1 98.1 Pulse 71 64 64 75 Resp 18 B/P (MAP) 169/72 (104) 203/82 203/82 185/86 (119) Pulse Ox 92 O2 Delivery Room Air 07/29/20 07/29/20 07/29/20 07/29/20 19:50 20:36 22:45 22:50 Temp 98.4 98.4 Pulse 80 87 Resp 18 B/P (MAP) 185/86 145/63 (90) Pulse Ox 83 93 O2 Delivery Room Air Room Air Nasal Cannula O2 Flow Rate 2.0 07/29/20 07/30/20 07/30/20 07/30/20 23:47 02:50 04:08 07:00 Temp 98.4 98.6 98.4 98.6 Pulse 86 82 Resp 18 18 B/P (MAP) 162/72 (102) 169/72 (104) Pulse Ox 95 93 95 96 O2 Delivery Room Air Nasal Cannula Nasal Cannula Nasal Cannula O2 Flow Rate 2.0 2.0 2.0 07/30/20 07/30/20 07/30/20 07/30/20 07:46 08:00 08:53 08:53 Pulse 85 85 B/P (MAP) 169/72 169/72 Pulse Ox 96 O2 Delivery Nasal Cannula Room Air O2 Flow Rate 2.0 Intake and Output 07/29/20 07/29/20 07/30/20 15:00 23:00 07:00 Intake Total 912 ml Output Total 300 ml Balance 612 ml Justicifation of Admission Dx: Justifications for Admission: Justification of Admission Dx: Yes RHIANNON WILLIS MD Jul 30, 2020 10:10
[2020-07-30 11:00] VITALS: BP 110/58
[2020-07-30 12:16] LABS: BASO # 0.1 x10^3/uL (0.0-0.2); BASO % 1 % (0-3); EOS % 0 % (0-3); HEMATOCRIT 41.5 % (36.0-47.0); HEMOGLOBIN 13.7 g/dL (12.0-15.5); LYMPH # 1.6 x10^3/uL (1.0-4.8); LYMPH % 12 % (24-48); MEAN CORPUSCULAR HEMOGLOBIN 31 pg (25-35); MEAN CORPUSCULAR HGB CONC 33 g/dL (31-37); MEAN CORPUSCULAR VOLUME 93 fL (79-100); MONO # 0.9 x10^3/uL (0.0-1.1); MONO % 7 % (0-9); NEUT # 10.4 x10^3/uL (1.8-7.7); NEUT % 81 % (31-73); PLATELET COUNT 251 x10^3/uL (140-400); RED BLOOD COUNT 4.47 x10^6/uL (3.50-5.40); RED CELL DISTRIBUTION WIDTH 15.1 % (11.5-14.5); WHITE BLOOD COUNT 12.9 x10^3/uL (4.0-11.0)
[2020-07-30 12:35] LABS: ALBUMIN/GLOBULIN RATIO 0.8 (1.0-1.7); CALCIUM 8.6 mg/dL (8.5-10.1); CREATININE 1.1 mg/dL (0.6-1.0); GFR 47.8; POTASSIUM 3.5 mmol/L (3.5-5.1); TOTAL BILIRUBIN 0.4 mg/dL (0.2-1.0); TOTAL PROTEIN 6.6 g/dL (6.4-8.2)
[2020-07-30] MEDS: ENOXAPARIN 40 MG/0.4 ML SYRINGE. SQ SCH (13:50)
--- NOTE | 2020-07-30 14:04 | PDOC ---
PROGRESS NOTES Date of Service DATE: 07/30/20 TIME: 14:03 Subjective Subjective Patient seen and examined Sedated for testing. Objective Objective Vital Signs Date Time Temp Pulse Resp B/P (MAP) Pulse Ox O2 Delivery O2 Flow Rate FiO2 07/30/20 11:29 94 Nasal Cannula 2.0 07/30/20 11:00 98.3 75 18 110/58 (75) 98.3 Intake and Output 07/30/20 07:00 Intake Total 912 ml Output Total 300 ml Balance 612 ml Intake Oral 0 ml IV Total 912 ml Output Urine Total 300 ml # Voids 5 # Bowel Movements 2 Physical Exam Abdomen: Normal bowel sounds Heart: Regular rate General: No acute distress Lungs: Clear to auscultation Assessment Assessment Problems Medical Problems: (1) Accelerated hypertension Status: Acute (2) CVA (cerebral vascular accident) Status: Acute 1. 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 Has been seen by neurology. Brain imaging pending. 2. Accelerated HTN. Significantly improved. 3. HLP: not on goal. Adjusting medications 4. Hx of AAA with endovascular repair 5. COPD with continued tobaccoism Comment Review of Relevant I have reviewed the following items carlitos (where applicable) has been applied. Labs Laboratory Tests Test 07/29/20 03:00 07/30/20 11:45 White Blood Count 7.8 x10^3/uL (4.0-11.0) 12.9 x10^3/uL (4.0-11.0) Red Blood Count 4.45 x10^6/uL (3.50-5.40) 4.47 x10^6/uL (3.50-5.40) Hemoglobin 13.9 g/dL (12.0-15.5) 13.7 g/dL (12.0-15.5) Hematocrit 41.0 % (36.0-47.0) 41.5 % (36.0-47.0) Mean Corpuscular Volume 92 fL (79-100) 93 fL (79-100) Mean Corpuscular Hemoglobin 31 pg (25-35) 31 pg (25-35) Mean Corpuscular Hemoglobin Concent 34 g/dL (31-37) 33 g/dL (31-37) Red Cell Distribution Width 15.3 % (11.5-14.5) 15.1 % (11.5-14.5) Platelet Count 221 x10^3/uL (140-400) 251 x10^3/uL (140-400) Neutrophils (%) (Auto) 58 % (31-73) 81 % (31-73) Lymphocytes (%) (Auto) 28 % (24-48) 12 % (24-48) Monocytes (%) (Auto) 10 % (0-9) 7 % (0-9) Eosinophils (%) (Auto) 3 % (0-3) 0 % (0-3) Basophils (%) (Auto) 1 % (0-3) 1 % (0-3) Neutrophils # (Auto) 4.5 x10^3/uL (1.8-7.7) 10.4 x10^3/uL (1.8-7.7) Lymphocytes # (Auto) 2.2 x10^3/uL (1.0-4.8) 1.6 x10^3/uL (1.0-4.8) Monocytes # (Auto) 0.8 x10^3/uL (0.0-1.1) 0.9 x10^3/uL (0.0-1.1) Eosinophils # (Auto) 0.2 x10^3/uL (0.0-0.7) 0.0 x10^3/uL (0.0-0.7) Basophils # (Auto) 0.1 x10^3/uL (0.0-0.2) 0.1 x10^3/uL (0.0-0.2) Prothrombin Time 12.1 SEC (11.7-14.0) Prothromb Time International Ratio 0.9 (0.8-1.1) Activated Partial Thromboplast Time 32 SEC (24-38) Sodium Level 140 mmol/L (136-145) 142 mmol/L (136-145) Potassium Level 3.8 mmol/L (3.5-5.1) 3.5 mmol/L (3.5-5.1) Chloride Level 104 mmol/L (98-107) 106 mmol/L (98-107) Carbon Dioxide Level 29 mmol/L (21-32) 29 mmol/L (21-32) Anion Gap 7 (6-14) 7 (6-14) Blood Urea Nitrogen 23 mg/dL (7-20) 22 mg/dL (7-20) Creatinine 1.0 mg/dL (0.6-1.0) 1.1 mg/dL (0.6-1.0) Estimated GFR (Cockcroft-Gault) 53.3 47.8 BUN/Creatinine Ratio 23 (6-20) 20 (6-20) Glucose Level 106 mg/dL (70-99) 151 mg/dL (70-99) Calcium Level 8.8 mg/dL (8.5-10.1) 8.6 mg/dL (8.5-10.1) Total Bilirubin 0.2 mg/dL (0.2-1.0) 0.4 mg/dL (0.2-1.0) Aspartate Amino Transf (AST/SGOT) 28 U/L (15-37) 23 U/L (15-37) Alanine Aminotransferase (ALT/SGPT) 27 U/L (14-59) 16 U/L (14-59) Alkaline Phosphatase 196 U/L (46-116) 158 U/L (46-116) Troponin I Quantitative 0.019 ng/mL (0.000-0.055) Total Protein 6.4 g/dL (6.4-8.2) 6.6 g/dL (6.4-8.2) Albumin 3.1 g/dL (3.4-5.0) 3.0 g/dL (3.4-5.0) Albumin/Globulin Ratio 0.9 (1.0-1.7) 0.8 (1.0-1.7) Triglycerides Level 133 mg/dL (0-150) Cholesterol Level 232 mg/dL (0-200) LDL Cholesterol, Calculated 149 mg/dL (0-100) VLDL Cholesterol, Calculated 27 mg/dL (0-40) Non-HDL Cholesterol Calculated 176 mg/dL (0-129) HDL Cholesterol 56 mg/dL (40-60) Cholesterol/HDL Ratio 4.1 Laboratory Tests Test 07/30/20 11:45 White Blood Count 12.9 x10^3/uL (4.0-11.0) Red Blood Count 4.47 x10^6/uL (3.50-5.40) Hemoglobin 13.7 g/dL (12.0-15.5) Hematocrit 41.5 % (36.0-47.0) Mean Corpuscular Volume 93 fL (79-100) Mean Corpuscular Hemoglobin 31 pg (25-35) Mean Corpuscular Hemoglobin Concent 33 g/dL (31-37) Red Cell Distribution Width 15.1 % (11.5-14.5) Platelet Count 251 x10^3/uL (140-400) Neutrophils (%) (Auto) 81 % (31-73) Lymphocytes (%) (Auto) 12 % (24-48) Monocytes (%) (Auto) 7 % (0-9) Eosinophils (%) (Auto) 0 % (0-3) Basophils (%) (Auto) 1 % (0-3) Neutrophils # (Auto) 10.4 x10^3/uL (1.8-7.7) Lymphocytes # (Auto) 1.6 x10^3/uL (1.0-4.8) Monocytes # (Auto) 0.9 x10^3/uL (0.0-1.1) Eosinophils # (Auto) 0.0 x10^3/uL (0.0-0.7) Basophils # (Auto) 0.1 x10^3/uL (0.0-0.2) Sodium Level 142 mmol/L (136-145) Potassium Level 3.5 mmol/L (3.5-5.1) Chloride Level 106 mmol/L (98-107) Carbon Dioxide Level 29 mmol/L (21-32) Anion Gap 7 (6-14) Blood Urea Nitrogen 22 mg/dL (7-20) Creatinine 1.1 mg/dL (0.6-1.0) Estimated GFR (Cockcroft-Gault) 47.8 BUN/Creatinine Ratio 20 (6-20) Glucose Level 151 mg/dL (70-99) Calcium Level 8.6 mg/dL (8.5-10.1) Total Bilirubin 0.4 mg/dL (0.2-1.0) Aspartate Amino Transf (AST/SGOT) 23 U/L (15-37) Alanine Aminotransferase (ALT/SGPT) 16 U/L (14-59) Alkaline Phosphatase 158 U/L (46-116) Total Protein 6.6 g/dL (6.4-8.2) Albumin 3.0 g/dL (3.4-5.0) Albumin/Globulin Ratio 0.8 (1.0-1.7) Medications Current Medications Labetalol HCl (Normodyne Iv Push) 20 mg 1X ONCE IVP Last administered on 07/29/20at 03:53; Start 07/29/20 at 03:30; Stop 07/29/20 at 03:31; Status DC Iohexol (Omnipaque 350 Mg/ml) 75 ml 1X ONCE IV Last administered on 07/29/20at 03:30; Start 07/29/20 at 03:30; Stop 07/29/20 at 03:31; Status DC Info (CONTRAST GIVEN -- Rx MONITORING) 1 each PRN DAILY PRN MC SEE COMMENTS; Start 07/29/20 at 03:15; Stop 07/31/20 at 03:14 Aspirin (Aspirin Chewable) 324 mg 1X ONCE PO Last administered on 07/29/20at 03:57; Start 07/29/20 at 04:00; Stop 07/29/20 at 04:01; Status DC Ondansetron HCl (Zofran) 4 mg PRN Q8HRS PRN IV NAUSEA/VOMITING 1ST CHOICE Last administered on 07/29/20at 22:09; Start 07/29/20 at 04:00; Stop 07/30/20 at 03:59; Status DC Acetaminophen (Tylenol) 650 mg PRN Q6HRS PRN PO TEMP > 100.4F; Start 07/29/20 at 08:45 Acetaminophen (Tylenol Supp) 650 mg PRN Q4HRS PRN [place] TEMP > 100.4F; Start 07/29/20 at 08:45; Stop 07/29/20 at 13:03; Status DC Aspirin (Ecotrin) 325 mg DAILYWBKFT PO Last administered on 07/30/20at 08:52; Start 07/30/20 at 08:00 Aspirin (Aspirin Rectal Supp) 300 mg PRN DAILY PRN [place] IF UNABLE TO TAKE PO; Start 07/29/20 at 08:45 Sodium Chloride (Normal Saline Flush) 3 ml QSHIFT PRN IV AFTER MEDS AND BLOOD DRAWS; Start 07/29/20 at 11:30 Sodium Chloride 1,000 ml @ 70 mls/hr [id number] IV Last administered on 07/30/20at 05:48; Start 07/29/20 at 12:00 Acetaminophen (Tylenol Supp) 650 mg PRN Q4HRS PRN [place] TEMP OVER 100.4F OR MILD PAIN; Start 07/29/20 at 11:30 Al Hydroxide/Mg Hydroxide (Mylanta Plus Xs) 30 ml PRN DAILY PRN PO HEARTBURN / GAS; Start 07/29/20 at 11:30 Docusate Sodium (Colace) 100 mg PRN BID PRN PO HARD STOOLS; Start 07/29/20 at 11:30 Albuterol/ Ipratropium (Duoneb) 3 ml Q4HRS NEB ; Start 07/29/20 at 12:00; Stop 07/29/20 at 11:34; Status DC Guaifenesin (Robitussin) 200 mg PRN Q4HRS PRN PO COUGH; Start 07/29/20 at 11:30 Enoxaparin Sodium (Lovenox 40mg Syringe) 40 mg Q24H SQ Last administered on 07/30/20at 13:50; Start 07/29/20 at 12:00 Aspirin (Ecotrin) 81 mg DAILY08 PO ; Start 07/30/20 at 08:00; Status UNV Citalopram Hydrobromide (CeleXA) 10 mg DAILY07 PO Last administered on 07/30/20at 08:52; Start 07/29/20 at 12:30 Simvastatin (Zocor) 40 mg HS PO ; Start 07/29/20 at 21:00; Stop 07/29/20 at 15:25; Status DC Calcium/Vitamin D (Oscal D 500mg/ 200uts) 1 tab DAILY PO Last administered on 07/30/20at 08:53; Start 07/29/20 at 12:30 Vitamin D (Vitamin D3) 1,000 unit DAILY PO Last administered on 07/30/20at 08:52; Start 07/29/20 at 12:30 Fish Oil (Fish Oil) 1,000 mg DAILY PO Last administered on 07/30/20at 08:52; Start 07/29/20 at 12:30 Albuterol/ Ipratropium (Duoneb) 3 ml Q4HRS NEB Last administered on 07/30/20at 11:29; Start 07/29/20 at 16:00 Hydralazine HCl (Apresoline Inj) 10 mg PRN Q4HRS PRN IVP ELEVATED BP, SEE COMMENTS Last administered on 07/29/20at 20:36; Start 07/29/20 at 15:15 Ringer's Solution 1,000 ml @ 50 mls/hr Q20H IV ; Start 07/29/20 at 15:16; Stop 07/30/20 at 03:15; Status DC Amlodipine Besylate (Norvasc) 10 mg DAILY PO Last administered on 07/30/20at 08:53; Start 07/29/20 at 15:30 Lisinopril (Prinivil) 20 mg DAILY PO Last administered on 07/30/20at 08:53; Start 07/29/20 at 15:30 Atorvastatin Calcium (Lipitor) 20 mg QHS PO Last administered on 07/29/20at 20:35; Start 07/29/20 at 21:00 Active Scripts Active Reported Citalopram Hbr (Citalopram Hydrobromide) 20 Mg Tablet 1 Tab PO DAILY [place] 5-325 Tablet (Acetaminophen/Hydrocodone Bitart) 1 Each Tablet 1-2 Tab PO Q4-6HRS Doxycycline Hyclate 100 Mg Capsule 1 Cap PO BID 7 Days Vitamin D (Cholecalciferol (Vitamin D3)) 1,000 Unit Capsule 1 Cap PO DAILY Calcium + D Soft Chewable Tab (Ca Carbonate/Vitamin D3/Vit K) 1 Each Tab.chew 1 Each PO DAILY Fish Oil ([place]-3 Fatty Acids) 500 Mg Capsule 500 Mg PO DAILY Simvastatin 40 Mg Tablet 40 Mg PO Aspirin Ec (Aspirin) 81 Mg Tablet. 81 Mg PO Citalopram Hbr (Citalopram Hydrobromide) 10 Mg Tablet 10 Mg PO Lisinopril 20 Mg Tablet 20 Mg PO Vitals/I & O Vital Sign - Last 24 Hours 07/29/20 07/29/20 07/29/20 07/29/20 15:00 15:19 15:20 15:28 Temp 97.9 97.9 Pulse 62 64 71 Resp 20 B/P (MAP) 203/82 (122) 203/82 169/72 (104) Pulse Ox 91 95 O2 Delivery Room Air Room Air 07/29/20 07/29/20 07/29/20 07/29/20 18:38 18:38 19:00 19:50 Temp 98.1 98.1 Pulse 64 64 75 Resp 18 B/P (MAP) 203/82 203/82 185/86 (119) Pulse Ox 92 O2 Delivery Room Air Room Air 07/29/20 07/29/20 07/29/20 07/29/20 20:36 22:45 22:50 23:47 Temp 98.4 98.4 Pulse 80 87 Resp 18 B/P (MAP) 185/86 145/63 (90) Pulse Ox 83 93 95 O2 Delivery Room Air Nasal Cannula Room Air O2 Flow Rate 2.0 07/30/20 07/30/20 07/30/20 07/30/20 02:50 04:08 07:00 07:46 Temp 98.4 98.6 98.4 98.6 Pulse 86 82 Resp 18 18 B/P (MAP) 162/72 (102) 169/72 (104) Pulse Ox 93 95 96 96 O2 Delivery Nasal Cannula Nasal Cannula Nasal Cannula Nasal Cannula O2 Flow Rate 2.0 2.0 2.0 2.0 07/30/20 07/30/20 07/30/20 07/30/20 08:00 08:53 08:53 11:00 Temp 98.3 98.3 Pulse 85 85 75 Resp 18 B/P (MAP) 169/72 169/72 110/58 (75) Pulse Ox 93 O2 Delivery Room Air Nasal Cannula O2 Flow Rate 2.0 07/30/20 11:29 Pulse Ox 94 O2 Delivery Nasal Cannula O2 Flow Rate 2.0 Intake and Output 07/29/20 07/29/20 07/30/20 15:00 23:00 07:00 Intake Total 912 ml Output Total 300 ml Balance 612 ml Justifications for Admission Other Justification BERYL CISNEROS MD Jul 30, 2020 14:04
[2020-07-30 15:00] VITALS: BP 139/56
[2020-07-30 18:50] VITALS: BP 135/62
[2020-07-30] MEDS: LISINOPRIL 10 MG TABLET PO SCH (19:00)
--- NOTE | 2020-07-30 21:42 | NUR ---
Patient requesting "Sleeping Pill and anxiety medication. Dr. Isbell here to see Patient and informed of Patient requests. See orders.
[2020-07-30] MEDS: ATORVASTATIN CALCIUM 20 MG TABLET PO SCH (21:43)
[2020-07-30] MEDS: traZODone 50 MG TABLET. PO PRN (21:50)
--- NOTE | 2020-07-30 21:50 | NUR ---
Trazadone given per order.
--- NOTE | 2020-07-30 22:45 | NUR ---
Patient given thickened cranberry juice. Patient assisted with bedpan to void and brianna care provided. Patient able to roll side to side without difficulty and has been shifting self in bed. Patient has c/o leg cramps and has been pulling legs up in bed massaging them periodically. Wedge foam at foot of bed for Patient to put press feet against to ease leg cramps with relief from cramping.
[2020-07-30 23:34] VITALS: BP 146/72
--- NOTE | 2020-07-30 23:40 | PDOC ---
PROGRESS NOTES Assessment 1. Stroke involving the left centrum semiovale which has resulted in a right h emiparesis and severe dysarthria. She was not given TPA. CT angiogram of the head and neck was not revealing. 2. Hyperlipidemia with markedly elevated LDL 3. Severe dysphagia but she was able to tolerate a modified diet by speech therapy. 4. Echocardiogram is pending Plan 1. She will participate with all the therapies and ultimately require transfer to either senior living for rehab or an acute facility depending on her tolerability. 2. She has been started on a statin for hyperlipidemia 3. She is on a pured diet with honey thickened liquid. Speech therapy will continue to work with her and advance the diet as tolerated. 4. We will await the results of the echocardiogram. It seems less likely this type of stroke would be embolic but if there is an embolic source we could always reconsider our treatment. For the time she will continue with aspirin for stroke prevention. She will need to have smoking cessation. Subjective I am not in pain. I am glad you came by. I am having cramping in my legs. Objective Vital Signs Date Time Temp Pulse Resp B/P (MAP) Pulse Ox O2 Delivery O2 Flow Rate FiO2 07/30/20 20:36 94 Nasal Cannula 2.0 07/30/20 18:50 97.7 80 16 135/62 (86) 97.7 Intake and Output 07/30/20 07:00 Intake Total 912 ml Output Total 300 ml Balance 612 ml Intake Oral 0 ml IV Total 912 ml Output Urine Total 300 ml # Voids 5 # Bowel Movements 2 PHYSICAL EXAM She was alert, awake and cooperative. Speech was dysarthric and difficult to understand. She often had to repeat herself. She had poor dentition. The eyes were conjugate. She had a right facial droop. Hearing was intact. Tone was diminished in the right arm and leg. She was able to move her left side better than her right side. She had trace movements with right fingers, wrist, elbow and shoulder. She had difficulty raising her right leg off the bed. Strength on the left was fairly full. Coordination on the left was intact. She could still perceive sensation with nailbed pressure on the right. Gait was not testable. Review of Relevant I have reviewed the following items carlitos (where applicable) has been applied. Labs Laboratory Tests Test 07/29/20 03:00 07/30/20 11:45 White Blood Count 7.8 x10^3/uL (4.0-11.0) 12.9 x10^3/uL (4.0-11.0) Red Blood Count 4.45 x10^6/uL (3.50-5.40) 4.47 x10^6/uL (3.50-5.40) Hemoglobin 13.9 g/dL (12.0-15.5) 13.7 g/dL (12.0-15.5) Hematocrit 41.0 % (36.0-47.0) 41.5 % (36.0-47.0) Mean Corpuscular Volume 92 fL (79-100) 93 fL (79-100) Mean Corpuscular Hemoglobin 31 pg (25-35) 31 pg (25-35) Mean Corpuscular Hemoglobin Concent 34 g/dL (31-37) 33 g/dL (31-37) Red Cell Distribution Width 15.3 % (11.5-14.5) 15.1 % (11.5-14.5) Platelet Count 221 x10^3/uL (140-400) 251 x10^3/uL (140-400) Neutrophils (%) (Auto) 58 % (31-73) 81 % (31-73) Lymphocytes (%) (Auto) 28 % (24-48) 12 % (24-48) Monocytes (%) (Auto) 10 % (0-9) 7 % (0-9) Eosinophils (%) (Auto) 3 % (0-3) 0 % (0-3) Basophils (%) (Auto) 1 % (0-3) 1 % (0-3) Neutrophils # (Auto) 4.5 x10^3/uL (1.8-7.7) 10.4 x10^3/uL (1.8-7.7) Lymphocytes # (Auto) 2.2 x10^3/uL (1.0-4.8) 1.6 x10^3/uL (1.0-4.8) Monocytes # (Auto) 0.8 x10^3/uL (0.0-1.1) 0.9 x10^3/uL (0.0-1.1) Eosinophils # (Auto) 0.2 x10^3/uL (0.0-0.7) 0.0 x10^3/uL (0.0-0.7) Basophils # (Auto) 0.1 x10^3/uL (0.0-0.2) 0.1 x10^3/uL (0.0-0.2) Prothrombin Time 12.1 SEC (11.7-14.0) Prothromb Time International Ratio 0.9 (0.8-1.1) Activated Partial Thromboplast Time 32 SEC (24-38) Sodium Level 140 mmol/L (136-145) 142 mmol/L (136-145) Potassium Level 3.8 mmol/L (3.5-5.1) 3.5 mmol/L (3.5-5.1) Chloride Level 104 mmol/L (98-107) 106 mmol/L (98-107) Carbon Dioxide Level 29 mmol/L (21-32) 29 mmol/L (21-32) Anion Gap 7 (6-14) 7 (6-14) Blood Urea Nitrogen 23 mg/dL (7-20) 22 mg/dL (7-20) Creatinine 1.0 mg/dL (0.6-1.0) 1.1 mg/dL (0.6-1.0) Estimated GFR (Cockcroft-Gault) 53.3 47.8 BUN/Creatinine Ratio 23 (6-20) 20 (6-20) Glucose Level 106 mg/dL (70-99) 151 mg/dL (70-99) Calcium Level 8.8 mg/dL (8.5-10.1) 8.6 mg/dL (8.5-10.1) Total Bilirubin 0.2 mg/dL (0.2-1.0) 0.4 mg/dL (0.2-1.0) Aspartate Amino Transf (AST/SGOT) 28 U/L (15-37) 23 U/L (15-37) Alanine Aminotransferase (ALT/SGPT) 27 U/L (14-59) 16 U/L (14-59) Alkaline Phosphatase 196 U/L (46-116) 158 U/L (46-116) Troponin I Quantitative 0.019 ng/mL (0.000-0.055) Total Protein 6.4 g/dL (6.4-8.2) 6.6 g/dL (6.4-8.2) Albumin 3.1 g/dL (3.4-5.0) 3.0 g/dL (3.4-5.0) Albumin/Globulin Ratio 0.9 (1.0-1.7) 0.8 (1.0-1.7) Triglycerides Level 133 mg/dL (0-150) Cholesterol Level 232 mg/dL (0-200) LDL Cholesterol, Calculated 149 mg/dL (0-100) VLDL Cholesterol, Calculated 27 mg/dL (0-40) Non-HDL Cholesterol Calculated 176 mg/dL (0-129) HDL Cholesterol 56 mg/dL (40-60) Cholesterol/HDL Ratio 4.1 Laboratory Tests Test 07/30/20 11:45 White Blood Count 12.9 x10^3/uL (4.0-11.0) Red Blood Count 4.47 x10^6/uL (3.50-5.40) Hemoglobin 13.7 g/dL (12.0-15.5) Hematocrit 41.5 % (36.0-47.0) Mean Corpuscular Volume 93 fL (79-100) Mean Corpuscular Hemoglobin 31 pg (25-35) Mean Corpuscular Hemoglobin Concent 33 g/dL (31-37) Red Cell Distribution Width 15.1 % (11.5-14.5) Platelet Count 251 x10^3/uL (140-400) Neutrophils (%) (Auto) 81 % (31-73) Lymphocytes (%) (Auto) 12 % (24-48) Monocytes (%) (Auto) 7 % (0-9) Eosinophils (%) (Auto) 0 % (0-3) Basophils (%) (Auto) 1 % (0-3) Neutrophils # (Auto) 10.4 x10^3/uL (1.8-7.7) Lymphocytes # (Auto) 1.6 x10^3/uL (1.0-4.8) Monocytes # (Auto) 0.9 x10^3/uL (0.0-1.1) Eosinophils # (Auto) 0.0 x10^3/uL (0.0-0.7) Basophils # (Auto) 0.1 x10^3/uL (0.0-0.2) Sodium Level 142 mmol/L (136-145) Potassium Level 3.5 mmol/L (3.5-5.1) Chloride Level 106 mmol/L (98-107) Carbon Dioxide Level 29 mmol/L (21-32) Anion Gap 7 (6-14) Blood Urea Nitrogen 22 mg/dL (7-20) Creatinine 1.1 mg/dL (0.6-1.0) Estimated GFR (Cockcroft-Gault) 47.8 BUN/Creatinine Ratio 20 (6-20) Glucose Level 151 mg/dL (70-99) Calcium Level 8.6 mg/dL (8.5-10.1) Total Bilirubin 0.4 mg/dL (0.2-1.0) Aspartate Amino Transf (AST/SGOT) 23 U/L (15-37) Alanine Aminotransferase (ALT/SGPT) 16 U/L (14-59) Alkaline Phosphatase 158 U/L (46-116) Total Protein 6.6 g/dL (6.4-8.2) Albumin 3.0 g/dL (3.4-5.0) Albumin/Globulin Ratio 0.8 (1.0-1.7) Medications Current Medications Labetalol HCl (Normodyne Iv Push) 20 mg 1X ONCE IVP Last administered on 07/29/20at 03:53; Start 07/29/20 at 03:30; Stop 07/29/20 at 03:31; Status DC Iohexol (Omnipaque 350 Mg/ml) 75 ml 1X ONCE IV Last administered on 07/29/20at 03:30; Start 07/29/20 at 03:30; Stop 07/29/20 at 03:31; Status DC Info (CONTRAST GIVEN -- Rx MONITORING) 1 each PRN DAILY PRN MC SEE COMMENTS; Start 07/29/20 at 03:15; Stop 07/31/20 at 03:14 Aspirin (Aspirin Chewable) 324 mg 1X ONCE PO Last administered on 07/29/20at 03:57; Start 07/29/20 at 04:00; Stop 07/29/20 at 04:01; Status DC Ondansetron HCl (Zofran) 4 mg PRN Q8HRS PRN IV NAUSEA/VOMITING 1ST CHOICE Last administered on 07/29/20at 22:09; Start 07/29/20 at 04:00; Stop 07/30/20 at 03:59; Status DC Acetaminophen (Tylenol) 650 mg PRN Q6HRS PRN PO TEMP > 100.4F; Start 07/29/20 at 08:45 Acetaminophen (Tylenol Supp) 650 mg PRN Q4HRS PRN [place] TEMP > 100.4F; Start 07/29/20 at 08:45; Stop 07/29/20 at 13:03; Status DC Aspirin (Ecotrin) 325 mg DAILYWBKFT PO Last administered on 07/30/20at 08:52; Start 07/30/20 at 08:00 Aspirin (Aspirin Rectal Supp) 300 mg PRN DAILY PRN [place] IF UNABLE TO TAKE PO; Start 07/29/20 at 08:45 Sodium Chloride (Normal Saline Flush) 3 ml QSHIFT PRN IV AFTER MEDS AND BLOOD DRAWS; Start 07/29/20 at 11:30 Sodium Chloride 1,000 ml @ 70 mls/hr [id number] IV Last administered on 07/30/20at 19:24; Start 07/29/20 at 12:00 Acetaminophen (Tylenol Supp) 650 mg PRN Q4HRS PRN [place] TEMP OVER 100.4F OR MILD PAIN; Start 07/29/20 at 11:30 Al Hydroxide/Mg Hydroxide (Mylanta Plus Xs) 30 ml PRN DAILY PRN PO HEARTBURN / GAS; Start 07/29/20 at 11:30 Docusate Sodium (Colace) 100 mg PRN BID PRN PO HARD STOOLS; Start 07/29/20 at 11:30 Albuterol/ Ipratropium (Duoneb) 3 ml Q4HRS NEB ; Start 07/29/20 at 12:00; Stop 07/29/20 at 11:34; Status DC Guaifenesin (Robitussin) 200 mg PRN Q4HRS PRN PO COUGH; Start 07/29/20 at 11:30 Enoxaparin Sodium (Lovenox 40mg Syringe) 40 mg Q24H SQ Last administered on 07/30/20at 13:50; Start 07/29/20 at 12:00 Aspirin (Ecotrin) 81 mg DAILY08 PO ; Start 07/30/20 at 08:00; Status UNV Citalopram Hydrobromide (CeleXA) 10 mg DAILY07 PO Last administered on 07/30/20 08:52; Start 07/29/20 at 12:30; Stop 07/30/20 at 18:57; Status DC Simvastatin (Zocor) 40 mg HS PO ; Start 07/29/20 at 21:00; Stop 07/29/20 at 15:25; Status DC Calcium/Vitamin D (Oscal D 500mg/ 200uts) 1 tab DAILY PO Last administered on 07/30/20 08:53; Start 07/29/20 at 12:30 Vitamin D (Vitamin D3) 1,000 unit DAILY PO Last administered on 07/30/20 08:52; Start 07/29/20 at 12:30 Fish Oil (Fish Oil) 1,000 mg DAILY PO Last administered on 07/30/20 08:52; Start 07/29/20 at 12:30 Albuterol/ Ipratropium (Duoneb) 3 ml Q4HRS NEB Last administered on 07/30/20at 20:00; Start 07/29/20 at 16:00 Hydralazine HCl (Apresoline Inj) 10 mg PRN Q4HRS PRN IVP ELEVATED BP, SEE COMMENTS Last administered on 07/29/20at 20:36; Start 07/29/20 at 15:15 Ringer's Solution 1,000 ml @ 50 mls/hr Q20H IV ; Start 07/29/20 at 15:16; Stop 07/30/20 at 03:15; Status DC Amlodipine Besylate (Norvasc) 10 mg DAILY PO Last administered on 07/30/20at 08:53; Start 07/29/20 at 15:30 Lisinopril (Prinivil) 20 mg DAILY PO Last administered on 07/30/20at 08:53; Start 07/29/20 at 15:30; Stop 07/30/20 at 18:58; Status DC Atorvastatin Calcium (Lipitor) 20 mg QHS PO Last administered on 07/30/20at 21:43; Start 07/29/20 at 21:00 Citalopram Hydrobromide (CeleXA) 10 mg DAILY PO ; Start 07/30/20 at 19:00 Lisinopril (Prinivil) 10 mg DAILY08 PO ; Start 07/30/20 at 19:00 Trazodone HCl (Desyrel) 50 mg PRN QHS PRN PO INSOMNIA Last administered on 07/30/20at 21:50; Start 07/30/20 at 21:45 Active Scripts Active Reported Citalopram Hbr (Citalopram Hydrobromide) 20 Mg Tablet 1 Tab PO DAILY [place] 5-325 Tablet (Acetaminophen/Hydrocodone Bitart) 1 Each Tablet 1-2 Tab PO Q4-6HRS Doxycycline Hyclate 100 Mg Capsule 1 Cap PO BID 7 Days Vitamin D (Cholecalciferol (Vitamin D3)) 1,000 Unit Capsule 1 Cap PO DAILY Calcium + D Soft Chewable Tab (Ca Carbonate/Vitamin D3/Vit K) 1 Each Tab.chew 1 Each PO DAILY Fish Oil ([place]-3 Fatty Acids) 500 Mg Capsule 500 Mg PO DAILY Simvastatin 40 Mg Tablet 40 Mg PO Aspirin Ec (Aspirin) 81 Mg Tablet.dr 81 Mg PO Citalopram Hbr (Citalopram Hydrobromide) 10 Mg Tablet 10 Mg PO Lisinopril 20 Mg Tablet 20 Mg PO Vitals/I & O Vital Sign - Last 24 Hours 07/29/20 07/30/20 07/30/20 07/30/20 23:47 02:50 04:08 07:00 Temp 98.4 98.6 98.4 98.6 Pulse 86 82 Resp 18 18 B/P (MAP) 162/72 (102) 169/72 (104) Pulse Ox 95 93 95 96 O2 Delivery Room Air Nasal Cannula Nasal Cannula Nasal Cannula O2 Flow Rate 2.0 2.0 2.0 07/30/20 07/30/20 07/30/20 07/30/20 07:46 08:00 08:53 08:53 Pulse 85 85 B/P (MAP) 169/72 169/72 Pulse Ox 96 O2 Delivery Nasal Cannula Room Air O2 Flow Rate 2.0 07/30/20 07/30/20 07/30/20 07/30/20 11:00 11:29 15:00 15:42 Temp 98.3 98.3 98.3 98.3 Pulse 75 77 Resp 18 18 B/P (MAP) 110/58 (75) 139/56 (83) Pulse Ox 93 94 92 94 O2 Delivery Nasal Cannula Nasal Cannula Nasal Cannula Nasal Cannula O2 Flow Rate 2.0 2.0 2.0 2.0 07/30/20 07/30/2007/30/20 18:50 20:25 20:36 Temp 97.7 97.7 Pulse 80 Resp 16 B/P (MAP) 135/62 (86) Pulse Ox 91 94 O2 Delivery Nasal Cannula Room Air Nasal Cannula O2 Flow Rate 2.0 2.0 Intake and Output 07/29/20 07/29/20 07/30/20 15:00 23:00 07:00 Intake Total 912 ml Output Total 300 ml Balance 612 ml Justicifation of Admission Dx: Justifications for Admission: Justification of Admission Dx: Yes NASIR AMX MD Jul 30, 2020 23:40
[2020-07-31 03:51] VITALS: BP 127/63
[2020-07-31] MEDS: IPRATRPIUM/ALBUTEROL 0.5/2.5MG 3 ML NEBU. NEB SCH ×6 (04:00→20:40)
--- NOTE | 2020-07-31 05:18 | NUR ---
Patient has been resting quietly post sleeping pill without any further c/o leg cramps.
[2020-07-31 07:00] VITALS: BP 120/63
[2020-07-31] MEDS: IV NORMAL SALINE 1000ML BAG 1,000 ML IV SCH ×2 (08:10→22:33)
[2020-07-31] MEDS: OMEGA-3 FATTY ACIDS/FISH OIL 1,000 MG CAPSULE. PO SCH (08:16)
[2020-07-31] MEDS: CHOLECALCIFEROL (VITAMIN D3) 1,000 UNIT TABLET PO SCH (08:16)
[2020-07-31] MEDS: CALCIUM CARB/VIT D3 500/200 TABLET. PO SCH (08:16)
[2020-07-31] MEDS: ASPIRIN ENTERIC COATED 325 MG TABLET.DR. PO SCH (08:16)
[2020-07-31] MEDS: LISINOPRIL 10 MG TABLET PO SCH (08:17)
[2020-07-31] MEDS: amLODIPine BESYLATE 10 MG TABLET PO SCH (08:17)
[2020-07-31] MEDS: CITALOPRAM 10 MG TABLET. PO SCH (08:18)
--- NOTE | 2020-07-31 09:43 | EKG ---
[facility] [address] [place] [address] Test Date: 2020-07-31 Test Time: 09:41:54 Pat Name: HONORIO MCGUIRE Department: Room: 252 1 Gender: F [employer]: : 1940 Requested By: BERYL CISNEROS Order Number: [id number] Reading MD: Measurements Intervals [place] Rate: 117 P: MN: QRS: 3 QRSD: 76 T: 62 QT: 354 QTc: 499 Interpretive Statements IRREGULAR RHYTHM, NO P-WAVE FOUND VENTRICULAR PREMATURE COMPLEX(ES) QRS(T) CONTOUR ABNORMALITY CONSIDER ANTEROLATERAL MYOCARDIAL DAMAGE CONSIDER INFERIOR MYOCARDIAL DAMAGE ABNORMAL ECG RI6.01 Compared to ECG 07/29/2020 03:31:25 Sinus rhythm no longer present T-wave abnormality no longer present
[2020-07-31 11:00] VITALS: BP 140/62
--- NOTE | 2020-07-31 11:27 | PDOC ---
PROGRESS NOTES Date of Service: DATE: 07/31/20 TIME: 11:26 Chief Complaint Chief Complaint VTE Prophylaxis Ordered VTE Prophylaxis Devices: No VTE Pharmacological Prophylaxi: Yes Assessment/Plan Assessment/Plan IMPRESSION: Acute CVA, LEFT HEMISPHERE Small acute infarct involving the left centrum semiovale. 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 Moderate stenosis of the left P1 segment and mild/moderate stenosis of the right P2 segment. 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 ON CT HEAD No acute intracranial hemorrhage or CT evidence for an acute cortical infarction. Hypertension severe dysarthria. EMPHYSEMA Accelerated HTN. HLP: not on goal. Adjusting medications Hx AAA with endovascular repair COPD with continued tobaccoism PLAN ADMIT CVC BED NEUROLOGY CONSULT PT/OT/ST neurochecks q 4 hrs dvt prophylasis MRI of the brain Echocardiogram DISCUSSED DPOA NEED X 10 MIN CARDIOLOGY CONSULT SMOKING CESSATION EDUCATION PROVIDED 12 MIN opinion from neurology regarding long-term anticoagulation. Discharge Recommendations * Acute Rehab facility 27 MIN PT EXAM, CHART REVIEW, > 50% OF TIME SPENT WITH EXAM, CHART REVIEW, PT CARE COORDINATION Justifications for Admission Justifications for Admission Other Justification History of Present Illness History of Present Illness Identification/Chief Complaint Chief Complaint 79 year old FEMALE SMOKER presents with right sided weakness, last known normal was at 2300 on 07/28. Patient noticed difficulty using her right hand. // weakness in the right leg and dysarthria. Patient states symptoms are better than when they started but still has some difficulty touching her nose with her right hand. 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 Moderate stenosis of the left P1 segment and mild/moderate stenosis of the right P2 segment. on cta head NEEDS DPOA REVIEW, 12 MIN Past Medical History Past Medical History Past Medical History Past Medical History Past Medical History: COPD, Hypertension Past Surgical History: Hysterectomy, Other Additional Past Surgical Histo: AAA REPAIR W/ STENT PLACEMENT Smoking Status: Current Every Day Smoker Alcohol Use: None Drug Use: None FHX COPD Cardiovascular: HTN, Hyperlipidemia, Other Pulmonary: COPD CENTRAL NERVOUS SYSTEM: Other GI: No pertinent hx Heme/Onc: No pertinent hx Hepatobiliary: No pertinent hx Musculoskeletal: Osteoarthritis Rheumatologic: No pertinent hx Infectious disease: No pertinent hx Renal/: No pertinent hx Endocrine: No pertinent hx Past Surgical History Past Surgical History: Hernia Repair, Hysterectomy, Other Family History Family History: Coronary Artery Disease, High Cholestrol, Hypertension Social History Smoke: <1 pack per day ALCOHOL: none Drugs: None Vitals Vitals Vital Signs Date Time Temp Pulse Resp B/P (MAP) Pulse Ox O2 Delivery O2 Flow Rate FiO2 07/31/20 08:17 77 158/69 07/31/20 08:00 Room Air 07/31/20 07:36 97 2.0 07/31/20 07:00 97.8 16 97.8 Physical Exam General: Alert, Oriented X3, Cooperative, No acute distress Heart: Regular rate (SR), Normal S1, Other (distant heart sounds) Lungs: Clear Abdomen: Normal bowel sounds Extremities: No clubbing, No cyanosis, No edema Skin: No breakdown, No significant lesion Labs LABS Laboratory Tests Test 07/30/20 11:45 White Blood Count 12.9 x10^3/uL (4.0-11.0) Red Blood Count 4.47 x10^6/uL (3.50-5.40) Hemoglobin 13.7 g/dL (12.0-15.5) Hematocrit 41.5 % (36.0-47.0) Mean Corpuscular Volume 93 fL (79-100) Mean Corpuscular Hemoglobin 31 pg (25-35) Mean Corpuscular Hemoglobin Concent 33 g/dL (31-37) Red Cell Distribution Width 15.1 % (11.5-14.5) Platelet Count 251 x10^3/uL (140-400) Neutrophils (%) (Auto) 81 % (31-73) Lymphocytes (%) (Auto) 12 % (24-48) Monocytes (%) (Auto) 7 % (0-9) Eosinophils (%) (Auto) 0 % (0-3) Basophils (%) (Auto) 1 % (0-3) Neutrophils # (Auto) 10.4 x10^3/uL (1.8-7.7) Lymphocytes # (Auto) 1.6 x10^3/uL (1.0-4.8) Monocytes # (Auto) 0.9 x10^3/uL (0.0-1.1) Eosinophils # (Auto) 0.0 x10^3/uL (0.0-0.7) Basophils # (Auto) 0.1 x10^3/uL (0.0-0.2) Sodium Level 142 mmol/L (136-145) Potassium Level 3.5 mmol/L (3.5-5.1) Chloride Level 106 mmol/L (98-107) Carbon Dioxide Level 29 mmol/L (21-32) Anion Gap 7 (6-14) Blood Urea Nitrogen 22 mg/dL (7-20) Creatinine 1.1 mg/dL (0.6-1.0) Estimated GFR (Cockcroft-Gault) 47.8 BUN/Creatinine Ratio 20 (6-20) Glucose Level 151 mg/dL (70-99) Calcium Level 8.6 mg/dL (8.5-10.1) Total Bilirubin 0.4 mg/dL (0.2-1.0) Aspartate Amino Transf (AST/SGOT) 23 U/L (15-37) Alanine Aminotransferase (ALT/SGPT) 16 U/L (14-59) Alkaline Phosphatase 158 U/L (46-116) Total Protein 6.6 g/dL (6.4-8.2) Albumin 3.0 g/dL (3.4-5.0) Albumin/Globulin Ratio 0.8 (1.0-1.7) Assessment and Plan Assessmemt and Plan Problems Medical Problems: (1) Accelerated hypertension Status: Acute (2) CVA (cerebral vascular accident) Status: Acute REINFORCED CONCRETE INSPECTOR * Louise Quezada MA, L/CCC-REINFORCED CONCRETE INSPECTOR Medical Dx. * Pt admitted w/ R sided weakness and slurred speech. Diagnosed w/ L-CVA. PMH: Bronchitis, COPD, HTN, vertigo, tobaccoism. CXR 07/29/20: No acute radiographic abnormality of the chest. Emphysematous changes and probable volume loss at the left lung base. CT head 07/29/20: No acute intracranial hemorrhage or CT evidence for an acute cortical infarction. Current Chest Xray * 07/29: No acute radiographic abnormality of the chest. Reason For Referral * acute CVA Relevant Precautions * Aspiration * Fall Risk O2 Requirements * Room Air Dentition * Natural Dentition * Upper Partial Denture Behavioral Characteristics * Alert Current Diet Consistency * NPO Prior Functional Status * No known sp/sw deficit Other Related Factors * Tearful, reflecting on recent loss of gr son &telling me her dtr had CVAs. Pain Score * 5 Pain Scale Type * Numeric * Descriptive Pain Location * R calf; states this has happened in past & poss assoc w/low fluid intake. Pain Quality * Cramping Intelligibility Words * Consonant Distortion * Moderately Impaired Intelligibility Sentences * Moderately Impaired Voice Quality * Within Functional Limits Voice Pitch * Monopitch Voice Intensity * Mild-moderately reduced Respiratory Function * Poor Voice Coordination Lingual Strength/ROM * Mildly Impaired * Moderately Impaired Labial Strength/ROM * Right Volitional Cough/Throat Clear * Moderately Impaired Palatal Elevation * Within Normal Limits Body Position * WFL - With Support Head Position * Within Functional Limits Accepting Bolus * Within Functional Limits Thin Liquid Presented Via: * teaspoon * cup Oral Phase Summary - Thin Liquid * Mild impairment Oral Containment - Thin Liquid * Right Anterior Leakage Bolus Prep/A-P Transport - Thin Liquid * Mildly impaired * Increased transport time Oral Residue - Thin Liquid * None Pharyngeal Phase Summary - Thin Liquid * Moderate impairment Pharyngeal Swallow Initiation - Thin Liquid * Mild Delay (1-3 sec) Hyolaryngeal Excursion - Thin Liquid * Mildly Reduced Signs of Aspiration - Thin Liquid * Immediate Cough Additional Information - Pharyngeal Phase - Thin Liquid * Immediate reactive cough w/cup trial x2/2 c/w aspiration. Suspect oropharyngeal delay and /or weakness and /or premature spill r/t oral weakness contributing to s/s aspiration. Presented Via * cup Oral Phase Summary - Honey Thick * Mild impairment Oral Containment - Honey Thick * Within Functional Limits Bolus Prep/A-P Transport - Honey Thick * Mildly impaired * Increased transport time Oral Residue - Honey Thick * Minimal Pharyngeal Stage Summary - Honey * Mild impairment Pharyngeal Swallow Initiation - Honey Thick * Mild Delay (1-3 sec) Hyolaryngeal Excursion - Honey Thick * Mildly Reduced Signs of Aspiration - Honey Thick * None Additional Information - Pharyngeal Phase - Honey Thick Liq * No s/s x2-3 oz over multiple trials. Pt w/evidence of oropharyngeal delay-suspect oral and /or pharyngeal but unclear at bedside. Poss reduced hyolaryngeal excurison per palp as well. Oral Phase Summary - Puree * Mild impairment Oral Containment - Puree * Within Functional Limits Bolus Prep/A-P Transport - Puree * Mildly impaired * Increased transport time Oral Residue - Puree * Minimal Additional Information - Oral Phase - Puree * 2 swallows per bolus but unable to inspect oral cavity between swallows. 2nd swallow poss r/t oral vs pharyngeal residue. Pharyngeal Stage Summary - Puree * Mild impairment Pharyngeal Swallow Initiation - Puree * Mild Delay (1-3 sec) Hyolaryngeal Excursion - Puree * Mildly Reduced * Multiple Swallows Signs of Aspiration - Puree * None Additional Information - Pharyngeal Phase - Puree * 2 swallows per bolus, poss r/t pharyngeal residue but unable to inspect oral cavity between swallows. Oral Phase Summary - Soft Solids * Moderate impairment Oral Containment - Soft Solid * Right Anterior Leakage Bolus Prep/A-P Transport - Soft Solid * Mildly impaired * Moderately impaired * Increased transport time * Piecemeal Deglutition Mastication - Soft Solid * Inefficient * Incomplete Oral Residue - Soft Solid * Moderate Additional Information - Oral Phase - Soft Solid * Cough before swallow c/w bolus loss before swallow. Pt w/distraction, talking and reduced oral control r/t acute oral weakness. Oral res, mainly on R lingual and buccal surface, noted despite cues to masticate on stronger, L side. Oral weakness c/t risk of aspiration before swallow. Pharyngeal Stage Summary - Soft * Moderate impairment Pharyngeal Swallow Initiation - Soft Solid * Moderate Delay (3-5 sec) Hyolaryngeal Excursion - Soft Solid * Mildly Reduced * Multiple Swallows Signs of Aspiration - Soft Solid * Immediate Cough Additional Information - Pharyngeal Phase - Soft Solid * Reactive cough before swallow x2 of 2. See above. S/s aspiration felt to be r/t oral weakness and bolus loss before swallow. Impressions * Oropharyngeal Dysphagia * Moderate * Severe Identified Impairments Meriting Skilled Interventions * Aspiration Pneumonia * Malnutrition/Dehydration Diet Texture Recommendations * Dysphagia 1/Pureed Liquid Texture Recommendations * Honey Thick Medication Recommendations * With Thick Liquid * Pills - one at a time Recommended Swallow Strategies * Small Bites/Sips * Upright Position * Alternate Liquids/Solids * No Straws * Oral Care * Slow Rate Recommended Supervision with Meals * Intermittent Communicated Results With: * DARREN Hinojosa Additional Details/Impressions * Pt presents w/oropharyngeal dysphagia w/overt s/s aspiration on thin liquids and solids. Suspect oropharyngeal weakness, luis oral, is a contributing factor to s/s aspiration w/thin and solids. Pt w/cough before swallow w/solids, c/w bolus loss prior to swallow. Solid residue also c/w incomplete mastication and residue pattern c/w R lingual weakness and potential for pocketing over course of intake (limited trials for eval). Thin liquids w/immediate, reactive cough c/w aspiration. Suspect reduced oral control and/or pharyngeal delay also contributing to s/s thin aspiration. Puree and honey thick appear safe at this time, though mildy inefficient w/inconsistent 2nd swallow noted. IMPRESSIONS: Moderate oropharyngeal dysphagia w/moderate dysarthria p.CVA. Indications of aspiration associated w/solids and thin liquids, likely r/t oropharyngeal delay and /or weakness. Puree and honey thick liquids appear safe. Would initiate modified diet and ask dietitian to determine if po intake meeting nutritional needs. Should be able to safely take po meds. Moderate dysarthria. RECOMMENDATIONS: Dysphagia I /puree w/honey thick liquids. Precautions posted. Diet orders entered. DW pt and DARREN Hinojosa. Will f/u per POC. Skilled Services Needed * Pt-Caregiver Edu/Training * Dysphagia Tx Patient Stated Goal * Does not state Railway Signalling Engineer Swallow Goal * Safe and efficient intake of least restrictive diet consistency. Swallow Goal 1 * Puree w/o s/s Aspiration Swallow Goal 2 * Honey w/o s/s Aspiration Swallow Goal 3 * Safe and efficient swallow of solids. Pt. Agrees with POC * Yes Communicated Pt care with (name, title) * DARREN hinojosa Rehab Potential - To Achieve Goals * Fair Discharge Recommendations * Acute Rehab facility Treatment Frequency (Days/Week) * 5x over 7 days x1wk Comment Review of Relevant I have reviewed the following items carlitos (where applicable) has been applied. Labs Laboratory Tests Test 07/30/20 11:45 White Blood Count 12.9 x10^3/uL (4.0-11.0) Red Blood Count 4.47 x10^6/uL (3.50-5.40) Hemoglobin 13.7 g/dL (12.0-15.5) Hematocrit 41.5 % (36.0-47.0) Mean Corpuscular Volume 93 fL (79-100) Mean Corpuscular Hemoglobin 31 pg (25-35) Mean Corpuscular Hemoglobin Concent 33 g/dL (31-37) Red Cell Distribution Width 15.1 % (11.5-14.5) Platelet Count 251 x10^3/uL (140-400) Neutrophils (%) (Auto) 81 % (31-73) Lymphocytes (%) (Auto) 12 % (24-48) Monocytes (%) (Auto) 7 % (0-9) Eosinophils (%) (Auto) 0 % (0-3) Basophils (%) (Auto) 1 % (0-3) Neutrophils # (Auto) 10.4 x10^3/uL (1.8-7.7) Lymphocytes # (Auto) 1.6 x10^3/uL (1.0-4.8) Monocytes # (Auto) 0.9 x10^3/uL (0.0-1.1) Eosinophils # (Auto) 0.0 x10^3/uL (0.0-0.7) Basophils # (Auto) 0.1 x10^3/uL (0.0-0.2) Sodium Level 142 mmol/L (136-145) Potassium Level 3.5 mmol/L (3.5-5.1) Chloride Level 106 mmol/L (98-107) Carbon Dioxide Level 29 mmol/L (21-32) Anion Gap 7 (6-14) Blood Urea Nitrogen 22 mg/dL (7-20) Creatinine 1.1 mg/dL (0.6-1.0) Estimated GFR (Cockcroft-Gault) 47.8 BUN/Creatinine Ratio 20 (6-20) Glucose Level 151 mg/dL (70-99) Calcium Level 8.6 mg/dL (8.5-10.1) Total Bilirubin 0.4 mg/dL (0.2-1.0) Aspartate Amino Transf (AST/SGOT) 23 U/L (15-37) Alanine Aminotransferase (ALT/SGPT) 16 U/L (14-59) Alkaline Phosphatase 158 U/L (46-116) Total Protein 6.6 g/dL (6.4-8.2) Albumin 3.0 g/dL (3.4-5.0) Albumin/Globulin Ratio 0.8 (1.0-1.7) Laboratory Tests Test 07/30/20 11:45 White Blood Count 12.9 x10^3/uL (4.0-11.0) Red Blood Count 4.47 x10^6/uL (3.50-5.40) Hemoglobin 13.7 g/dL (12.0-15.5) Hematocrit 41.5 % (36.0-47.0) Mean Corpuscular Volume 93 fL (79-100) Mean Corpuscular Hemoglobin 31 pg (25-35) Mean Corpuscular Hemoglobin Concent 33 g/dL (31-37) Red Cell Distribution Width 15.1 % (11.5-14.5) Platelet Count 251 x10^3/uL (140-400) Neutrophils (%) (Auto) 81 % (31-73) Lymphocytes (%) (Auto) 12 % (24-48) Monocytes (%) (Auto) 7 % (0-9) Eosinophils (%) (Auto) 0 % (0-3) Basophils (%) (Auto) 1 % (0-3) Neutrophils # (Auto) 10.4 x10^3/uL (1.8-7.7) Lymphocytes # (Auto) 1.6 x10^3/uL (1.0-4.8) Monocytes # (Auto) 0.9 x10^3/uL (0.0-1.1) Eosinophils # (Auto) 0.0 x10^3/uL (0.0-0.7) Basophils # (Auto) 0.1 x10^3/uL (0.0-0.2) Sodium Level 142 mmol/L (136-145) Potassium Level 3.5 mmol/L (3.5-5.1) Chloride Level 106 mmol/L (98-107) Carbon Dioxide Level 29 mmol/L (21-32) Anion Gap 7 (6-14) Blood Urea Nitrogen 22 mg/dL (7-20) Creatinine 1.1 mg/dL (0.6-1.0) Estimated GFR (Cockcroft-Gault) 47.8 BUN/Creatinine Ratio 20 (6-20) Glucose Level 151 mg/dL (70-99) Calcium Level 8.6 mg/dL (8.5-10.1) Total Bilirubin 0.4 mg/dL (0.2-1.0) Aspartate Amino Transf (AST/SGOT) 23 U/L (15-37) Alanine Aminotransferase (ALT/SGPT) 16 U/L (14-59) Alkaline Phosphatase 158 U/L (46-116) Total Protein 6.6 g/dL (6.4-8.2) Albumin 3.0 g/dL (3.4-5.0) Albumin/Globulin Ratio 0.8 (1.0-1.7) Medications Current Medications Labetalol HCl (Normodyne Iv Push) 20 mg 1X ONCE IVP Last administered on 07/29/20at 03:53; Start 07/29/20 at 03:30; Stop 07/29/20 at 03:31; Status DC Iohexol (Omnipaque 350 Mg/ml) 75 ml 1X ONCE IV Last administered on 07/29/20at 03:30; Start 07/29/20 at 03:30; Stop 07/29/20 at 03:31; Status DC Info (CONTRAST GIVEN -- Rx MONITORING) 1 each PRN DAILY PRN MC SEE COMMENTS; Start 07/29/20 at 03:15; Stop 07/31/20 at 03:14; Status DC Aspirin (Aspirin Chewable) 324 mg 1X ONCE PO Last administered on 07/29/20at 03:57; Start 07/29/20 at 04:00; Stop 07/29/20 at 04:01; Status DC Ondansetron HCl (Zofran) 4 mg PRN Q8HRS PRN IV NAUSEA/VOMITING 1ST CHOICE Last administered on 07/29/20at 22:09; Start 07/29/20 at 04:00; Stop 07/30/20 at 03:59; Status DC Acetaminophen (Tylenol) 650 mg PRN Q6HRS PRN PO TEMP > 100.4F; Start 07/29/20 at 08:45 Acetaminophen (Tylenol Supp) 650 mg PRN Q4HRS PRN NV TEMP > 100.4F; Start 07/29/20 at 08:45; Stop 07/29/20 at 13:03; Status DC Aspirin (Ecotrin) 325 mg [id number] PO Last administered on 07/31/20at 08:16; Start 07/30/20 at 08:00 Aspirin (Aspirin Rectal Supp) 300 mg PRN DAILY PRN NV IF UNABLE TO TAKE PO; Start 07/29/20 at 08:45 Sodium Chloride (Normal Saline Flush) 3 ml QSHIFT PRN IV AFTER MEDS AND BLOOD DRAWS; Start 07/29/20 at 11:30 Sodium Chloride 1,000 ml @ 70 mls/hr [id number] IV Last administered on 07/31/20at 08:10; Start 07/29/20 at 12:00 Acetaminophen (Tylenol Supp) 650 mg PRN Q4HRS PRN NV TEMP OVER 100.4F OR MILD PAIN; Start 07/29/20 at 11:30 Al Hydroxide/Mg Hydroxide (Mylanta Plus Xs) 30 ml PRN DAILY PRN PO HEARTBURN / GAS; Start 07/29/20 at 11:30 Docusate Sodium (Colace) 100 mg PRN BID PRN PO HARD STOOLS; Start 07/29/20 at 11:30 Albuterol/ Ipratropium (Duoneb) 3 ml Q4HRS NEB ; Start 07/29/20 at 12:00; Stop 07/29/20 at 11:34; Status DC Guaifenesin (Robitussin) 200 mg PRN Q4HRS PRN PO COUGH; Start 07/29/20 at 11:30 Enoxaparin Sodium (Lovenox 40mg Syringe) 40 mg Q24H SQ Last administered on 07/30/20at 13:50; Start 07/29/20 at 12:00 Aspirin (Ecotrin) 81 mg DAILY08 PO ; Start 07/30/20 at 08:00; Status UNV Citalopram Hydrobromide (CeleXA) 10 mg DAILY07 PO Last administered on 07/30/20at 08:52; Start 07/29/20 at 12:30; Stop 07/30/20 at 18:57; Status DC Simvastatin (Zocor) 40 mg HS PO ; Start 07/29/20 at 21:00; Stop 07/29/20 at 15: 25; Status DC Calcium/Vitamin D (Oscal D 500mg/ 200uts) 1 tab DAILY PO Last administered on 07/31/20at 08:16; Start 07/29/20 at 12:30 Vitamin D (Vitamin D3) 1,000 unit DAILY PO Last administered on 07/31/20at 08:16; Start 07/29/20 at 12:30 Fish Oil (Fish Oil) 1,000 mg DAILY PO Last administered on 07/31/20at 08:16; Start 07/29/20 at 12:30 Albuterol/ Ipratropium (Duoneb) 3 ml Q4HRS NEB Last administered on 07/31/20at 07:35; Start 07/29/20 at 16:00 Hydralazine HCl (Apresoline Inj) 10 mg PRN Q4HRS PRN IVP ELEVATED BP, SEE COMMENTS Last administered on 07/29/20at 20:36; Start 07/29/20 at 15:15 Ringer's Solution 1,000 ml @ 50 mls/hr Q20H IV ; Start 07/29/20 at 15:16; Stop 07/30/20 at 03:15; Status DC Amlodipine Besylate (Norvasc) 10 mg DAILY PO Last administered on 07/31/20at 08:17; Start 07/29/20 at 15:30 Lisinopril (Prinivil) 20 mg DAILY PO Last administered on 07/30/20at 08:53; Sta rt 07/29/20 at 15:30; Stop 07/30/20 at 18:58; Status DC Atorvastatin Calcium (Lipitor) 20 mg QHS PO Last administered on 07/30/20at 21:43; Start 07/29/20 at 21:00 Citalopram Hydrobromide (CeleXA) 10 mg DAILY PO Last administered on 07/31/20at 08:18; Start 07/30/20 at 19:00 Lisinopril (Prinivil) 10 mg DAILY08 PO Last administered on 07/31/20at 08:17; Start 07/30/20 at 19:00 Trazodone HCl (Desyrel) 50 mg PRN QHS PRN PO INSOMNIA Last administered on 07/30/20at 21:50; Start 07/30/20 at 21:45 Active Scripts Active Reported Citalopram Hbr (Citalopram Hydrobromide) 20 Mg Tablet 1 Tab PO DAILY Taylor 5-325 Tablet (Acetaminophen/Hydrocodone Bitart) 1 Each Tablet 1-2 Tab PO Q4-6HRS Doxycycline Hyclate 100 Mg Capsule 1 Cap PO BID 7 Days Vitamin D (Cholecalciferol (Vitamin D3)) 1,000 Unit Capsule 1 Cap PO DAILY Calcium + D Soft Chewable Tab (Ca Carbonate/Vitamin D3/Vit K) 1 Each Tab.chew 1 Each PO DAILY Fish Oil (Burns-3 Fatty Acids) 500 Mg Capsule 500 Mg PO DAILY Simvastatin 40 Mg Tablet 40 Mg PO Aspirin Ec (Aspirin) 81 Mg Tablet.dr 81 Mg PO Citalopram Hbr (Citalopram Hydrobromide) 10 Mg Tablet 10 Mg PO Lisinopril 20 Mg Tablet 20 Mg PO Vitals/I & O Vital Sign - Last 24 Hours 07/30/20 07/30/20 07/30/20 07/30/20 11:29 15:00 15:42 18:50 Temp 98.3 97.7 98.3 97.7 Pulse 77 80 Resp 18 16 B/P (MAP) 139/56 (83) 135/62 (86) Pulse Ox 94 92 94 91 O2 Delivery Nasal Cannula Nasal Cannula Nasal Cannula Nasal Cannula O2 Flow Rate 2.0 2.0 2.0 2.0 07/30/20 07/30/20 07/30/20 07/31/20 20:25 20:36 23:34 00:39 Temp 98.1 98.1 Pulse 113 Resp 18 B/P (MAP) 146/72 (96) Pulse Ox 94 90 96 O2 Delivery Room Air Nasal Cannula Nasal Cannula Nasal Cannula O2 Flow Rate 2.0 2.0 2.0 07/31/20 07/31/20 07/31/20 07/31/20 03:51 07:00 07:36 08:00 Temp 98.2 97.8 98.2 97.8 Pulse 76 76 Resp 16 16 B/P (MAP) 127/63 (84) 120/63 (82) Pulse Ox 96 94 97 O2 Delivery Nasal Cannula Nasal Cannula Nasal Cannula Room Air O2 Flow Rate 2.0 2.0 2.0 07/31/20 07/31/20 08:17 08:17 Pulse 76 77 B/P (MAP) 158/69 158/69 Intake and Output 07/30/20 07/30/20 07/31/20 14:59 22:59 06:59 Intake Total 100 ml 1519 ml Output Total 525 ml Balance -425 ml 1519 ml Justicifation of Admission Dx: Justifications for Admission: Justification of Admission Dx: Yes RHIANNON WILLIS MD Jul 31, 2020 11:27
[2020-07-31 11:34] LABS: CALCIUM 8.3 mg/dL (8.5-10.1); GFR 53.3; POTASSIUM 3.2 mmol/L (3.5-5.1)
[2020-07-31 11:59] LABS: BILIRUBIN,URINE NEGATIVE (NEG); CLARITY,URINE CLEAR; COLOR,URINE YELLOW; NITRITE,URINE NEGATIVE (NEG); PROTEIN,URINE 30 mg/dL (NEG-TRACE); UROBILINOGEN,URINE 0.2 mg/dL (0.2 mg/dL)
[2020-07-31 12:18] LABS: BACTERIA,URINE 0 /HPF (0-FEW); RBC,URINE 0 /HPF (0-2)
[2020-07-31] MEDS: ENOXAPARIN 40 MG/0.4 ML SYRINGE. SQ SCH (12:31)
--- NOTE | 2020-07-31 12:44 | NUR ---
Patient went into Afib around 0900 while on the bedpan. Patient stated she felt her heart beating fast & had some double vision. STAT EKG done. Dr. Casas notified. Patient then converted back to SR on her own shortly after 1100. Will continue to monitor.
--- NOTE | 2020-07-31 14:00 | PDOC ---
PROGRESS NOTES Date of Service DATE: 07/31/20 TIME: 13:58 Subjective Subjective Patient seen and examined Objective Objective Vital Signs Date Time Temp Pulse Resp B/P (MAP) Pulse Ox O2 Delivery O2 Flow Rate FiO2 07/31/20 11:00 98.1 115 16 140/62 (88) 91 Nasal Cannula 2.0 98.1 Intake and Output 07/31/20 07:00 Intake Total 1619 ml Output Total 525 ml Balance 1094 ml Intake Oral 100 ml IV Total 1519 ml Output Urine Total 525 ml # Voids 1 Physical Exam Abdomen: Normal bowel sounds Heart: Regular rate General: mild distress Lungs: Clear to auscultation Assessment Assessment Problems Medical Problems: (1) Accelerated hypertension Status: Acute (2) CVA (cerebral vascular accident) Status: Acute 1. 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 Improved. Followed by neurology. 2. Accelerated HTN. Significantly improved. 3. HLP: not on goal. Adjusting medications 4. Hx of AAA with endovascular repair 5. COPD with continued tobaccoism 6. Episodes of paroxysmal atrial fibrillation. On Lovenox in the hospital. Will request opinion from neurology regarding long-term anticoagulation. Comment Review of Relevant I have reviewed the following items carlitos (where applicable) has been applied. Labs Laboratory Tests Test 07/30/20 11:45 07/31/20 10:20 07/31/20 11:41 White Blood Count 12.9 x10^3/uL (4.0-11.0) Red Blood Count 4.47 x10^6/uL (3.50-5.40) Hemoglobin 13.7 g/dL (12.0-15.5) Hematocrit 41.5 % (36.0-47.0) Mean Corpuscular Volume 93 fL (79-100) Mean Corpuscular Hemoglobin 31 pg (25-35) Mean Corpuscular Hemoglobin Concent 33 g/dL (31-37) Red Cell Distribution Width 15.1 % (11.5-14.5) Platelet Count 251 x10^3/uL (140-400) Neutrophils (%) (Auto) 81 % (31-73) Lymphocytes (%) (Auto) 12 % (24-48) Monocytes (%) (Auto) 7 % (0-9) Eosinophils (%) (Auto) 0 % (0-3) Basophils (%) (Auto) 1 % (0-3) Neutrophils # (Auto) 10.4 x10^3/uL (1.8-7.7) Lymphocytes # (Auto) 1.6 x10^3/uL (1.0-4.8) Monocytes # (Auto) 0.9 x10^3/uL (0.0-1.1) Eosinophils # (Auto) 0.0 x10^3/uL (0.0-0.7) Basophils # (Auto) 0.1 x10^3/uL (0.0-0.2) Sodium Level 142 mmol/L (136-145) 145 mmol/L (136-145) Potassium Level 3.5 mmol/L (3.5-5.1) 3.2 mmol/L (3.5-5.1) Chloride Level 106 mmol/L (98-107) 108 mmol/L (98-107) Carbon Dioxide Level 29 mmol/L (21-32) 30 mmol/L (21-32) Anion Gap 7 (6-14) 7 (6-14) Blood Urea Nitrogen 22 mg/dL (7-20) 15 mg/dL (7-20) Creatinine 1.1 mg/dL (0.6-1.0) 1.0 mg/dL (0.6-1.0) Estimated GFR (Cockcroft-Gault) 47.8 53.3 BUN/Creatinine Ratio 20 (6-20) Glucose Level 151 mg/dL (70-99) 102 mg/dL (70-99) Calcium Level 8.6 mg/dL (8.5-10.1) 8.3 mg/dL (8.5-10.1) Total Bilirubin 0.4 mg/dL (0.2-1.0) Aspartate Amino Transf (AST/SGOT) 23 U/L (15-37) Alanine Aminotransferase (ALT/SGPT) 16 U/L (14-59) Alkaline Phosphatase 158 U/L (46-116) Total Protein 6.6 g/dL (6.4-8.2) Albumin 3.0 g/dL (3.4-5.0) Albumin/Globulin Ratio 0.8 (1.0-1.7) Urine Collection Type Unknown Urine Color Yellow Urine Clarity Clear Urine pH 6.0 (<5.0-8.0) Urine Specific [place] 1.010 (1.000-1.030) Urine Protein 30 mg/dL (NEG-TRACE) Urine Glucose (UA) Negative mg/dL (NEG) Urine Ketones (Stick) Negative mg/dL (NEG) Urine Blood Trace (NEG) Urine Nitrite Negative (NEG) Urine Bilirubin Negative (NEG) Urine Urobilinogen Dipstick 0.2 mg/dL (0.2 mg/dL) Urine Leukocyte Esterase Moderate (NEG) Urine RBC 0 /HPF (0-2) Urine WBC 5-10 /HPF (0-4) Urine Bacteria 0 /HPF (0-FEW) Laboratory Tests Test 07/31/20 10:20 07/31/20 11:41 Sodium Level 145 mmol/L (136-145) Potassium Level 3.2 mmol/L (3.5-5.1) Chloride Level 108 mmol/L (98-107) Carbon Dioxide Level 30 mmol/L (21-32) Anion Gap 7 (6-14) Blood Urea Nitrogen 15 mg/dL (7-20) Creatinine 1.0 mg/dL (0.6-1.0) Estimated GFR (Cockcroft-Gault) 53.3 Glucose Level 102 mg/dL (70-99) Calcium Level 8.3 mg/dL (8.5-10.1) Urine Collection Type Unknown Urine Color Yellow Urine Clarity Clear Urine pH 6.0 (<5.0-8.0) Urine Specific [place] 1.010 (1.000-1.030) Urine Protein 30 mg/dL (NEG-TRACE) Urine Glucose (UA) Negative mg/dL (NEG) Urine Ketones (Stick) Negative mg/dL (NEG) Urine Blood Trace (NEG) Urine Nitrite Negative (NEG) Urine Bilirubin Negative (NEG) Urine Urobilinogen Dipstick 0.2 mg/dL (0.2 mg/dL) Urine Leukocyte Esterase Moderate (NEG) Urine RBC 0 /HPF (0-2) Urine WBC 5-10 /HPF (0-4) Urine Bacteria 0 /HPF (0-FEW) Medications Current Medications Labetalol HCl (Normodyne Iv Push) 20 mg 1X ONCE IVP Last administered on 07/29/20at 03:53; Start 07/29/20 at 03:30; Stop 07/29/20 at 03:31; Status DC Iohexol (Omnipaque 350 Mg/ml) 75 ml 1X ONCE IV Last administered on 07/29/20at 03:30; Start 07/29/20 at 03:30; Stop 07/29/20 at 03:31; Status DC Info (CONTRAST GIVEN -- Rx MONITORING) 1 each PRN DAILY PRN MC SEE COMMENTS; Start 07/29/20 at 03:15; Stop 07/31/20 at 03:14; Status DC Aspirin (Aspirin Chewable) 324 mg 1X ONCE PO Last administered on 07/29/20at 03:57; Start 07/29/20 at 04:00; Stop 07/29/20 at 04:01; Status DC Ondansetron HCl (Zofran) 4 mg PRN Q8HRS PRN IV NAUSEA/VOMITING 1ST CHOICE Last administered on 07/29/20at 22:09; Start 07/29/20 at 04:00; Stop 07/30/20 at 03:59; Status DC Acetaminophen (Tylenol) 650 mg PRN Q6HRS PRN PO TEMP > 100.4F; Start 07/29/20 at 08:45 Acetaminophen (Tylenol Supp) 650 mg PRN Q4HRS PRN [place] TEMP > 100.4F; Start 07/29/20 at 08:45; Stop 07/29/20 at 13:03; Status DC Aspirin (Ecotrin) 325 mg DAILYWBKFT PO Last administered on 07/31/20at 08:16; Start 07/30/20 at 08:00 Aspirin (Aspirin Rectal Supp) 300 mg PRN DAILY PRN [place] IF UNABLE TO TAKE PO; Start 07/29/20 at 08:45 Sodium Chloride (Normal Saline Flush) 3 ml QSHIFT PRN IV AFTER MEDS AND BLOOD DRAWS; Start 07/29/20 at 11:30 Sodium Chloride 1,000 ml @ 70 mls/hr [id number] IV Last administered on 07/31/20at 08:10; Start 07/29/20 at 12:00 Acetaminophen (Tylenol Supp) 650 mg PRN Q4HRS PRN [place] TEMP OVER 100.4F OR MILD PAIN; Start 07/29/20 at 11:30 Al Hydroxide/Mg Hydroxide (Mylanta Plus Xs) 30 ml PRN DAILY PRN PO HEARTBURN / GAS; Start 07/29/20 at 11:30 Docusate Sodium (Colace) 100 mg PRN BID PRN PO HARD STOOLS; Start 07/29/20 at 11:30 Albuterol/ Ipratropium (Duoneb) 3 ml Q4HRS NEB ; Start 07/29/20 at 12:00; Stop 07/29/20 at 11:34; Status DC Guaifenesin (Robitussin) 200 mg PRN Q4HRS PRN PO COUGH; Start 07/29/20 at 11:30 Enoxaparin Sodium (Lovenox 40mg Syringe) 40 mg Q24H SQ Last administered on 07/31/20at 12:31; Start 07/29/20 at 12:00 Aspirin (Ecotrin) 81 mg DAILY08 PO ; Start 07/30/20 at 08:00; Status UNV Citalopram Hydrobromide (CeleXA) 10 mg DAILY07 PO Last administered on 07/30/20at 08:52; Start 07/29/20 at 12:30; Stop 07/30/20 at 18:57; Status DC Simvastatin (Zocor) 40 mg HS PO ; Start 07/29/20 at 21:00; Stop 07/29/20 at 15:25; Status DC Calcium/Vitamin D (Oscal D 500mg/ 200uts) 1 tab DAILY PO Last administered on 07/31/20at 08:16; Start 07/29/20 at 12:30 Vitamin D (Vitamin D3) 1,000 unit DAILY PO Last administered on 07/31/20at 08:16; Start 07/29/20 at 12:30 Fish Oil (Fish Oil) 1,000 mg DAILY PO Last administered on 07/31/20at 08:16; Start 07/29/20 at 12:30 Albuterol/ Ipratropium (Duoneb) 3 ml Q4HRS NEB Last administered on 07/31/20at 07:35; Start 07/29/20 at 16:00 Hydralazine HCl (Apresoline Inj) 10 mg PRN Q4HRS PRN IVP ELEVATED BP, SEE COMMENTS Last administered on 07/29/20at 20:36; Start 07/29/20 at 15:15 Ringer's Solution 1,000 ml @ 50 mls/hr Q20H IV ; Start 07/29/20 at 15:16; Stop 8/29/20 at 03:15; Status DC Amlodipine Besylate (Norvasc) 10 mg DAILY PO Last administered on 07/31/20 08:17; Start 07/29/20 at 15:30 Lisinopril (Prinivil) 20 mg DAILY PO Last administered on 07/30/20at 08:53; Start 07/29/20 at 15:30; Stop 07/30/20 at 18:58; Status DC Atorvastatin Calcium (Lipitor) 20 mg QHS PO Last administered on 07/30/20at 21:43; Start 07/29/20 at 21:00 Citalopram Hydrobromide (CeleXA) 10 mg DAILY PO Last administered on 07/31/20 08:18; Start 07/30/20 at 19:00 Lisinopril (Prinivil) 10 mg DAILY08 PO Last administered on 07/31/20at 08:17; Start 07/30/20 at 19:00 Trazodone HCl (Desyrel) 50 mg PRN QHS PRN PO INSOMNIA Last administered on 07/30/20at 21:50; Start 07/30/20 at 21:45 Active Scripts Active Reported Citalopram Hbr (Citalopram Hydrobromide) 20 Mg Tablet 1 Tab PO DAILY [place] 5-325 Tablet (Acetaminophen/Hydrocodone Bitart) 1 Each Tablet 1-2 Tab PO Q4-6HRS Doxycycline Hyclate 100 Mg Capsule 1 Cap PO BID 7 Days Vitamin D (Cholecalciferol (Vitamin D3)) 1,000 Unit Capsule 1 Cap PO DAILY Calcium + D Soft Chewable Tab (Ca Carbonate/Vitamin D3/Vit K) 1 Each Tab.chew 1 Each PO DAILY Fish Oil ([place]-3 Fatty Acids) 500 Mg Capsule 500 Mg PO DAILY Simvastatin 40 Mg Tablet 40 Mg PO Aspirin Ec (Aspirin) 81 Mg Tablet.dr 81 Mg PO Citalopram Hbr (Citalopram Hydrobromide) 10 Mg Tablet 10 Mg PO Lisinopril 20 Mg Tablet 20 Mg PO Vitals/I & O Vital Sign - Last 24 Hours 07/30/20 07/30/20 07/30/20 07/30/20 15:00 15:42 18:50 20:25 Temp 98.3 97.7 98.3 97.7 Pulse 77 80 Resp 18 16 B/P (MAP) 139/56 (83) 135/62 (86) Pulse Ox 92 94 91 O2 Delivery Nasal Cannula Nasal Cannula Nasal Cannula Room Air O2 Flow Rate 2.0 2.0 2.0 07/30/20 07/30/20 07/31/20 07/31/20 20:36 23:34 00:39 03:51 Temp 98.1 98.2 98.1 98.2 Pulse 113 76 Resp 18 16 B/P (MAP) 146/72 (96) 127/63 (84) Pulse Ox 94 90 96 96 O2 Delivery Nasal Cannula Nasal Cannula Nasal Cannula Nasal Cannula O2 Flow Rate 2.0 2.0 2.0 2.0 07/31/20 07/31/20 07/31/20 07/31/20 07:00 07:36 08:00 08:17 Temp 97.8 97.8 Pulse 76 76 Resp 16 B/P (MAP) 120/63 (82) 158/69 Pulse Ox 94 97 O2 Delivery Nasal Cannula Nasal Cannula Room Air O2 Flow Rate 2.0 2.0 07/31/20 07/31/20 08:17 11:00 Temp 98.1 98.1 Pulse 77 115 Resp 16 B/P (MAP) 158/69 140/62 (88) Pulse Ox 91 O2 Delivery Nasal Cannula O2 Flow Rate 2.0 Intake and Output 07/30/20 07/30/20 07/31/20 15:00 23:00 07:00 Intake Total 100 ml 1519 ml Output Total 525 ml Balance -425 ml 1519 ml Justifications for Admission Other Justification BERYL CISNEROS MD Jul 31, 2020 14:00
[2020-07-31 15:00] VITALS: BP 150/70
--- NOTE | 2020-07-31 16:48 | CARD ---
MR#: [id number] Date of Study: 07/31/2020 Ordering Physician: ALEKSANDER SHI, Referring Physician: ALEKSANDER SHI, Tech: Shobha Hastings APPROVED REPORT EXAM: Two-dimensional and M-mode echocardiogram with Doppler and color Doppler. Other Information Quality : AverageHR: 82bpm INDICATION COPD CVA/TIA RISK FACTORS Hypertension 2D DIMENSIONS RVDd2.9 (2.9-3.5cm)Left Atrium(2D)3.0 (1.6-4.0cm) IVSd1.2 (0.7-1.1cm)Aortic Root(2D)2.8 (2.0-3.7cm) LVDd4.1 (3.9-5.9cm)LVOT Diameter2.0 (1.8-2.4cm) PWd1.1 (0.7-1.1cm)LVDs2.6 (2.5-4.0cm) FS (%) 36.8 %SV48.8 ml Aortic Valve AoV Peak Shubham.188.8cm/sAoV VTI31.7cm AO Peak GR.14.3mmHgLVOT VTI 28.02cm AO Mean GR.8mmHg Mitral Valve MV E Uutvhhqm61.4cm/sMV E Peak Gr.5mmHg MV DECEL [id number] A Rrrfmcjb04.2cm/s MV E Mean Gr.2mmHgE/A Ratio1.7 TDI Lateral E' P. V7.53cm/sMedial E' P. V8.95cm/s E/Lateral E'11.7E/Medial E'9.9 Tricuspid Valve TR P. [id number] [id number] TR Peak Gr.[id number] LEFT VENTRICLE The left ventricle is normal size. There is mild concentric left ventricular hypertrophy. The left ve ntricular systolic function is normal and the ejection fraction is within normal range. The Ejection Fraction is 55-60%. There is normal LV segmental wall motion. Transmitral Doppler flow pattern is Gra de II-pseudonormal filling dynamics. RIGHT VENTRICLE The right ventricle is normal size. There is normal right ventricular wall thickness. The right ventr icular systolic function is normal. ATRIA The left atrium size is normal. The right atrium size is normal. The interatrial septum is intact wit h no evidence for an atrial septal defect or patent foramen ovale as noted on 2-D or Doppler imaging. AORTIC VALVE The aortic valve is normal in structure and function. Doppler and Color Flow revealed trace aortic re gurgitation. There is no significant aortic valvular stenosis. Calculated aortic valve area is 2.7 cm 2 with maximum pressure gradient of 14 mmHg and mean pressure gradient of 8 mmHg. MITRAL VALVE The mitral valve is normal in structure and function. There is no evidence of mitral valve prolapse. There is no mitral valve stenosis. Doppler and Color-flow revealed trace mitral regurgitation. TRICUSPID VALVE The tricuspid valve is normal in structure and function. Doppler and Color Flow revealed trace tricus pid regurgitation with an estimated PAP of 38 mmHg. There is no tricuspid valve stenosis. PULMONIC VALVE The pulmonic valve is not well visualized. Doppler and Color Flow revealed trace pulmonic valvular re gurgitation. GREAT VESSELS The aortic root is normal in size. The IVC is dilated. PERICARDIAL EFFUSION There is small left pleural effusion. There is no evidence of significant pericardial effusion. Critical Notification Critical Value: No <Conclusion> The left ventricle is normal size. The left ventricular systolic function is normal and the ejection fraction is within normal range. The Ejection Fraction is 55-60%. There is mild concentric left ventricular hypertrophy. Doppler and Color Flow revealed trace aortic regurgitation. There is no significant aortic valvular stenosis. Calculated aortic valve area is 2.7 cm2 with maximum pressure gradient of 14 mmHg and mean pressure g radient of 8 mmHg. Doppler and Color-flow revealed trace mitral regurgitation. Doppler and Color Flow revealed trace tricuspid regurgitation with an estimated PAP of 38 mmHg. Signed by : Nickolas Kimball MD Electronically Approved : 07/31/2020 16:47:30
[2020-07-31 19:58] VITALS: BP 133/61
--- NOTE | 2020-07-31 20:29 | PDOC ---
PROGRESS NOTES Assessment Problems Medical Problems: (1) Accelerated hypertension Status: Acute (2) CVA (cerebral vascular accident) Status: Acute 1. 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 The speech was slightly better this evening. She continues to have hemiparesis affecting the arm more than the leg. I am relieved the CT angiogram of the head and neck was not revealing. The echocardiogram did not reveal an embolic source. She is able to tolerate a modified diet. 2. Hyperlipidemia with elevated LDL 3. Hypertension which continues to be elevated. 4. Tobacco abuse 5. Cardiology reports episodes of paroxysmal atrial fibrillation and requests information regarding long-term anticoagulation Plan 1. The stroke burden was not large. I would endorse initiating an anticoagulant if she has been shown to have paroxysmal atrial fibrillation. 2. Hyperlipidemia-she has been started on a statin to address this issue. 3. She may be transferred to a rehabilitation facility from a neurologic perspective when medically stable. Subjective My daughter had strokes and a hemorrhage and was found to have a hole in her heart. She was treated at . My right arm still is not doing very much. My talking ability seems to come and go. Objective Vital Signs Date Time Temp Pulse Resp B/P (MAP) Pulse Ox O2 Delivery O2 Flow Rate FiO2 07/31/20 19:58 98.3 75 16 133/61 (85) 93 Nasal Cannula 2.0 98.3 Intake and Output 07/31/20 07:00 Intake Total 1619 ml Output Total 525 ml Balance 1094 ml Intake Oral 100 ml IV Total 1519 ml Output Urine Total 525 ml # Voids 1 PHYSICAL EXAM She was alert, awake and cooperative. Speech was dysarthric but fluent and more clear. I had to ask her far fewer times to repeat herself in order to understand. She was well oriented. The eyes were conjugate. She had a right facial droop. She had right hemiparesis affecting the arm more than the leg. She had trace movements in the hand and arm on the right. She was able to raise the right leg off the bed but there was drift. Power on the left side was full. Review of Relevant I have reviewed the following items carlitos (where applicable) has been applied. Labs Laboratory Tests Test 07/30/20 11:45 07/31/20 10:20 07/31/20 11:41 White Blood Count 12.9 x10^3/uL (4.0-11.0) Red Blood Count 4.47 x10^6/uL (3.50-5.40) Hemoglobin 13.7 g/dL (12.0-15.5) Hematocrit 41.5 % (36.0-47.0) Mean Corpuscular Volume 93 fL (79-100) Mean Corpuscular Hemoglobin 31 pg (25-35) Mean Corpuscular Hemoglobin Concent 33 g/dL (31-37) Red Cell Distribution Width 15.1 % (11.5-14.5) Platelet Count 251 x10^3/uL (140-400) Neutrophils (%) (Auto) 81 % (31-73) Lymphocytes (%) (Auto) 12 % (24-48) Monocytes (%) (Auto) 7 % (0-9) Eosinophils (%) (Auto) 0 % (0-3) Basophils (%) (Auto) 1 % (0-3) Neutrophils # (Auto) 10.4 x10^3/uL (1.8-7.7) Lymphocytes # (Auto) 1.6 x10^3/uL (1.0-4.8) Monocytes # (Auto) 0.9 x10^3/uL (0.0-1.1) Eosinophils # (Auto) 0.0 x10^3/uL (0.0-0.7) Basophils # (Auto) 0.1 x10^3/uL (0.0-0.2) Sodium Level 142 mmol/L (136-145) 145 mmol/L (136-145) Potassium Level 3.5 mmol/L (3.5-5.1) 3.2 mmol/L (3.5-5.1) Chloride Level 106 mmol/L (98-107) 108 mmol/L (98-107) Carbon Dioxide Level 29 mmol/L (21-32) 30 mmol/L (21-32) Anion Gap 7 (6-14) 7 (6-14) Blood Urea Nitrogen 22 mg/dL (7-20) 15 mg/dL (7-20) Creatinine 1.1 mg/dL (0.6-1.0) 1.0 mg/dL (0.6-1.0) Estimated GFR (Cockcroft-Gault) 47.8 53.3 BUN/Creatinine Ratio 20 (6-20) Glucose Level 151 mg/dL (70-99) 102 mg/dL (70-99) Calcium Level 8.6 mg/dL (8.5-10.1) 8.3 mg/dL (8.5-10.1) Total Bilirubin 0.4 mg/dL (0.2-1.0) Aspartate Amino Transf (AST/SGOT) 23 U/L (15-37) Alanine Aminotransferase (ALT/SGPT) 16 U/L (14-59) Alkaline Phosphatase 158 U/L (46-116) Total Protein 6.6 g/dL (6.4-8.2) Albumin 3.0 g/dL (3.4-5.0) Albumin/Globulin Ratio 0.8 (1.0-1.7) Urine Collection Type Unknown Urine Color Yellow Urine Clarity Clear Urine pH 6.0 (<5.0-8.0) Urine Specific [place] 1.010 (1.000-1.030) Urine Protein 30 mg/dL (NEG-TRACE) Urine Glucose (UA) Negative mg/dL (NEG) Urine Ketones (Stick) Negative mg/dL (NEG) Urine Blood Trace (NEG) Urine Nitrite Negative (NEG) Urine Bilirubin Negative (NEG) Urine Urobilinogen Dipstick 0.2 mg/dL (0.2 mg/dL) Urine Leukocyte Esterase Moderate (NEG) Urine RBC 0 /HPF (0-2) Urine WBC 5-10 /HPF (0-4) Urine Bacteria 0 /HPF (0-FEW) Laboratory Tests Test 07/31/20 10:20 07/31/20 11:41 Sodium Level 145 mmol/L (136-145) Potassium Level 3.2 mmol/L (3.5-5.1) Chloride Level 108 mmol/L (98-107) Carbon Dioxide Level 30 mmol/L (21-32) Anion Gap 7 (6-14) Blood Urea Nitrogen 15 mg/dL (7-20) Creatinine 1.0 mg/dL (0.6-1.0) Estimated GFR (Cockcroft-Gault) 53.3 Glucose Level 102 mg/dL (70-99) Calcium Level 8.3 mg/dL (8.5-10.1) Urine Collection Type Unknown Urine Color Yellow Urine Clarity Clear Urine pH 6.0 (<5.0-8.0) Urine Specific [place] 1.010 (1.000-1.030) Urine Protein 30 mg/dL (NEG-TRACE) Urine Glucose (UA) Negative mg/dL (NEG) Urine Ketones (Stick) Negative mg/dL (NEG) Urine Blood Trace (NEG) Urine Nitrite Negative (NEG) Urine Bilirubin Negative (NEG) Urine Urobilinogen Dipstick 0.2 mg/dL (0.2 mg/dL) Urine Leukocyte Esterase Moderate (NEG) Urine RBC 0 /HPF (0-2) Urine WBC 5-10 /HPF (0-4) Urine Bacteria 0 /HPF (0-FEW) Medications Current Medications Labetalol HCl (Normodyne Iv Push) 20 mg 1X ONCE IVP Last administered on 07/29/20at 03:53; Start 07/29/20 at 03:30; Stop 07/29/20 at 03:31; Status DC Iohexol (Omnipaque 350 Mg/ml) 75 ml 1X ONCE IV Last administered on 07/29/20at 03:30; Start 07/29/20 at 03:30; Stop 07/29/20 at 03:31; Status DC Info (CONTRAST GIVEN -- Rx MONITORING) 1 each PRN DAILY PRN MC SEE COMMENTS; Start 07/29/20 at 03:15; Stop 07/31/20 at 03:14; Status DC Aspirin (Aspirin Chewable) 324 mg 1X ONCE PO Last administered on 07/29/20at 03:57; Start 07/29/20 at 04:00; Stop 07/29/20 at 04:01; Status DC Ondansetron HCl (Zofran) 4 mg PRN Q8HRS PRN IV NAUSEA/VOMITING 1ST CHOICE Last administered on 07/29/20at 22:09; Start 07/29/20 at 04:00; Stop 07/30/20 at 03:59; Status DC Acetaminophen (Tylenol) 650 mg PRN Q6HRS PRN PO TEMP > 100.4F; Start 07/29/20 at 08:45 Acetaminophen (Tylenol Supp) 650 mg PRN Q4HRS PRN NC TEMP > 100.4F; Start 07/29/20 at 08:45; Stop 07/29/20 at 13:03; Status DC Aspirin (Ecotrin) 325 mg [id number] PO Last administered on 07/31/20at 08:16; Start 07/30/20 at 08:00 Aspirin (Aspirin Rectal Supp) 300 mg PRN DAILY PRN NC IF UNABLE TO TAKE PO; Start 07/29/20 at 08:45 Sodium Chloride (Normal Saline Flush) 3 ml QSHIFT PRN IV AFTER MEDS AND BLOOD DRAWS; Start 07/29/20 at 11:30 Sodium Chloride 1,000 ml @ 70 mls/hr [id number] IV Last administered on 07/31/20at 08:10; Start 07/29/20 at 12:00 Acetaminophen (Tylenol Supp) 650 mg PRN Q4HRS PRN NC TEMP OVER 100.4F OR MILD PAIN; Start 07/29/20 at 11:30 Al Hydroxide/Mg Hydroxide (Mylanta Plus Xs) 30 ml PRN DAILY PRN PO HEARTBURN / GAS; Start 07/29/20 at 11:30 Docusate Sodium (Colace) 100 mg PRN BID PRN PO HARD STOOLS; Start 07/29/20 at 11:30 Albuterol/ Ipratropium (Duoneb) 3 ml Q4HRS NEB ; Start 07/29/20 at 12:00; Stop 07/29/20 at 11:34; Status DC Guaifenesin (Robitussin) 200 mg PRN Q4HRS PRN PO COUGH; Start 07/29/20 at 11:30 Enoxaparin Sodium (Lovenox 40mg Syringe) 40 mg Q24H SQ Last administered on 07/31/20at 12:31; Start 07/29/20 at 12:00 Aspirin (Ecotrin) 81 mg DAILY08 PO ; Start 07/30/20 at 08:00; Status UNV Citalopram Hydrobromide (CeleXA) 10 mg DAILY07 PO Last administered on 07/30/20at 08:52; Start 07/29/20 at 12:30; Stop 07/30/20 at 18:57; Status DC Simvastatin (Zocor) 40 mg HS PO ; Start 07/29/20 at 21:00; Stop 07/29/20 at 15:25; Status DC Calcium/Vitamin D (Oscal D 500mg/ 200uts) 1 tab DAILY PO Last administered on 07/31/20at 08:16; Start 07/29/20 at 12:30 Vitamin D (Vitamin D3) 1,000 unit DAILY PO Last administered on 07/31/20 08:16; Start 07/29/20 at 12:30 Fish Oil (Fish Oil) 1,000 mg DAILY PO Last administered on 07/31/20 08:16; Start 07/29/20 at 12:30 Albuterol/ Ipratropium (Duoneb) 3 ml Q4HRS NEB Last administered on 07/31/20 15:31; Start 07/29/20 at 16:00 Hydralazine HCl (Apresoline Inj) 10 mg PRN Q4HRS PRN IVP ELEVATED BP, SEE CO MMENTS Last administered on 07/29/20at 20:36; Start 07/29/20 at 15:15 Ringer's Solution 1,000 ml @ 50 mls/hr Q20H IV ; Start 07/29/20 at 15:16; Stop 07/30/20 at 03:15; Status DC Amlodipine Besylate (Norvasc) 10 mg DAILY PO Last administered on 07/31/20 08:17; Start 07/29/20 at 15:30 Lisinopril (Prinivil) 20 mg DAILY PO Last administered on 07/30/20 08:53; Start 07/29/20 at 15:30; Stop 07/30/20 at 18:58; Status DC Atorvastatin Calcium (Lipitor) 20 mg QHS PO Last administered on 07/30/20at 21:43; Start 07/29/20 at 21:00 Citalopram Hydrobromide (CeleXA) 10 mg DAILY PO Last administered on 07/31/20 08:18; Start 07/30/20 at 19:00 Lisinopril (Prinivil) 10 mg DAILY08 PO Last administered on 07/31/20 08:17; Start 07/30/20 at 19:00 Trazodone HCl (Desyrel) 50 mg PRN QHS PRN PO INSOMNIA Last administered on 07/30/20 21:50; Start 07/30/20 at 21:45 Active Scripts Active Reported Citalopram Hbr (Citalopram Hydrobromide) 20 Mg Tablet 1 Tab PO DAILY [place] 5-325 Tablet (Acetaminophen/Hydrocodone Bitart) 1 Each Tablet 1-2 Tab PO Q4-6HRS Doxycycline Hyclate 100 Mg Capsule 1 Cap PO BID 7 Days Vitamin D (Cholecalciferol (Vitamin D3)) 1,000 Unit Capsule 1 Cap PO DAILY Calcium + D Soft Chewable Tab (Ca Carbonate/Vitamin D3/Vit K) 1 Each Tab.chew 1 Each PO DAILY Fish Oil ([place]-3 Fatty Acids) 500 Mg Capsule 500 Mg PO DAILY Simvastatin 40 Mg Tablet 40 Mg PO Aspirin Ec (Aspirin) 81 Mg Tablet.dr 81 Mg PO Citalopram Hbr (Citalopram Hydrobromide) 10 Mg Tablet 10 Mg PO Lisinopril 20 Mg Tablet 20 Mg PO Vitals/I & O Vital Sign - Last 24 Hours 07/30/20 07/30/20 07/31/20 07/31/20 20:36 23:34 00:39 03:51 Temp 98.1 98.2 98.1 98.2 Pulse 113 76 Resp 18 16 B/P (MAP) 146/72 (96) 127/63 (84) Pulse Ox 94 90 96 96 O2 Delivery Nasal Cannula Nasal Cannula Nasal Cannula Nasal Cannula O2 Flow Rate 2.0 2.0 2.0 2.0 07/31/20 07/31/20 07/31/20 07/31/20 07:00 07:36 08:00 08:17 Temp 97.8 97.8 Pulse 76 76 Resp 16 B/P (MAP) 120/63 (82) 158/69 Pulse Ox 94 97 O2 Delivery Nasal Cannula Nasal Cannula Room Air O2 Flow Rate 2.0 2.0 07/31/20 07/31/20 07/31/20 07/31/20 08:17 11:00 15:00 15:33 Temp 98.1 98.1 98.1 98.1 Pulse 77 115 77 Resp 16 16 B/P (MAP) 158/69 140/62 (88) 150/70 (96) Pulse Ox 91 93 94 O2 Delivery Nasal Cannula Nasal Cannula Nasal Cannula O2 Flow Rate 2.0 2.0 2.0 07/31/20 19:58 Temp 98.3 98.3 Pulse 75 Resp 16 B/P (MAP) 133/61 (85) Pulse Ox 93 O2 Delivery Nasal Cannula O2 Flow Rate 2.0 Intake and Output 07/30/20 07/30/20 07/31/20 15:00 23:00 07:00 Intake Total 100 ml 1519 ml Output Total 525 ml Balance -425 ml 1519 ml Justicifation of Admission Dx: Justifications for Admission: Justification of Admission Dx: Yes NASIR MAX MD Jul 31, 2020 20:28
[2020-07-31] MEDS: traZODone 50 MG TABLET. PO PRN (22:24)
[2020-07-31] MEDS: ATORVASTATIN CALCIUM 20 MG TABLET PO SCH (22:24)
[2020-07-31 23:56] VITALS: BP 152/66
[2020-08-01] MEDS: IPRATRPIUM/ALBUTEROL 0.5/2.5MG 3 ML NEBU. NEB SCH ×6 (00:15→19:56)
[2020-08-01 02:37] VITALS: BP 169/73
[2020-08-01 06:55] LABS: BASO # 0.1 x10^3/uL (0.0-0.2); BASO % 1 % (0-3); EOS # 0.2 x10^3/uL (0.0-0.7); EOS % 2 % (0-3); HEMATOCRIT 36.8 % (36.0-47.0); HEMOGLOBIN 12.6 g/dL (12.0-15.5); LYMPH # 1.5 x10^3/uL (1.0-4.8); LYMPH % 18 % (24-48); MEAN CORPUSCULAR HEMOGLOBIN 32 pg (25-35); MEAN CORPUSCULAR HGB CONC 34 g/dL (31-37); MEAN CORPUSCULAR VOLUME 93 fL (79-100); MONO # 0.9 x10^3/uL (0.0-1.1); MONO % 10 % (0-9); NEUT # 6.1 x10^3/uL (1.8-7.7); NEUT % 70 % (31-73); PLATELET COUNT 180 x10^3/uL (140-400); RED BLOOD COUNT 3.97 x10^6/uL (3.50-5.40); RED CELL DISTRIBUTION WIDTH 15.1 % (11.5-14.5); WHITE BLOOD COUNT 8.7 x10^3/uL (4.0-11.0)
[2020-08-01 07:00] VITALS: BP 195/88
[2020-08-01 07:17] LABS: CALCIUM 8.4 mg/dL (8.5-10.1); CREATININE 0.7 mg/dL (0.6-1.0); GFR 80.5; POTASSIUM 3.4 mmol/L (3.5-5.1)
[2020-08-01] MEDS: OMEGA-3 FATTY ACIDS/FISH OIL 1,000 MG CAPSULE. PO SCH (08:27)
[2020-08-01] MEDS: ASPIRIN ENTERIC COATED 325 MG TABLET.DR. PO SCH (08:27)
[2020-08-01] MEDS: LISINOPRIL 10 MG TABLET PO SCH (08:28)
[2020-08-01] MEDS: CALCIUM CARB/VIT D3 500/200 TABLET. PO SCH (08:28)
[2020-08-01] MEDS: CITALOPRAM 10 MG TABLET. PO SCH (08:28)
[2020-08-01] MEDS: amLODIPine BESYLATE 10 MG TABLET PO SCH (08:28)
[2020-08-01] MEDS: CHOLECALCIFEROL (VITAMIN D3) 1,000 UNIT TABLET PO SCH (08:28)
[2020-08-01] MEDS: hydrALAZINE 20 MG/ML VIAL. IVP PRN (08:29)
--- NOTE | 2020-08-01 10:18 | PDOC ---
PROGRESS NOTES Date of Service: DATE: 08/01/20 TIME: 10:17 Chief Complaint Chief Complaint VTE Prophylaxis Ordered VTE Prophylaxis Devices: No VTE Pharmacological Prophylaxi: Yes Assessment/Plan Assessment/Plan IMPRESSION: Acute CVA, LEFT HEMISPHERE Small acute infarct involving the left centrum semiovale. 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 Moderate stenosis of the left P1 segment and mild/moderate stenosis of the right P2 segment. 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 ON CT HEAD No acute intracranial hemorrhage or CT evidence for an acute cortical infarction. Hypertension severe dysarthria. EMPHYSEMA Accelerated HTN. HLP: not on goal. Adjusting medications Hx AAA with endovascular repair COPD with continued tobaccoism moderate protein-caloric malnutrition PLAN ADMIT CVC BED NEUROLOGY CONSULT PT/OT/ST neurochecks q 4 hrs dvt prophylasis MRI of the brain Echocardiogram DISCUSSED DPOA NEED X 10 MIN CARDIOLOGY CONSULT SMOKING CESSATION EDUCATION PROVIDED 12 MIN opinion from neurology regarding long-term anticoagulation. Discharge Recommendations * Acute Rehab facility 27 MIN PT EXAM, CHART REVIEW, > 50% OF TIME SPENT WITH EXAM, CHART REVIEW, PT CARE COORDINATION Justifications for Admission Justifications for Admission Other Justification History of Present Illness History of Present Illness Identification/Chief Complaint Chief Complaint 79 year old FEMALE SMOKER presents with right sided weakness, last known no rmal was at 2300 on 07/28. Patient noticed difficulty using her right hand. // weakness in the right leg and dysarthria. Patient states symptoms are better than when they started but still has some difficulty touching her nose with her right hand. 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 Moderate stenosis of the left P1 segment and mild/moderate stenosis of the right P2 segment. on cta head NEEDS DPOA REVIEW, 12 MIN Past Medical History Past Medical History Past Medical History Past Medical History Past Medical History: COPD, Hypertension Past Surgical History: Hysterectomy, Other Additional Past Surgical Histo: AAA REPAIR W/ STENT PLACEMENT Smoking Status: Current Every Day Smoker Alcohol Use: None Drug Use: None FHX COPD Cardiovascular: HTN, Hyperlipidemia, Other Pulmonary: COPD CENTRAL NERVOUS SYSTEM: Other GI: No pertinent hx Heme/Onc: No pertinent hx Hepatobiliary: No pertinent hx Musculoskeletal: Osteoarthritis Rheumatologic: No pertinent hx Infectious disease: No pertinent hx Renal/: No pertinent hx Endocrine: No pertinent hx Past Surgical History Past Surgical History: Hernia Repair, Hysterectomy, Other Family History Family History: Coronary Artery Disease, High Cholestrol, Hypertension Social History Smoke: <1 pack per day ALCOHOL: none Drugs: None Vitals Vitals Vital Signs Date Time Temp Pulse Resp B/P (MAP) Pulse Ox O2 Delivery O2 Flow Rate FiO2 08/01/20 08:29 73 195/88 08/01/20 07:39 95 Nasal Cannula 2.0 08/01/20 07:00 97.5 16 97.5 Physical Exam General: Alert, Oriented X3, Cooperative, No acute distress Heart: Regular rate Lungs: Clear Abdomen: Normal bowel sounds Extremities: No clubbing, No cyanosis, No edema Skin: No breakdown, No significant lesion Labs LABS Laboratory Tests Test 07/31/20 10:20 07/31/20 11:41 08/01/20 05:11 Sodium Level 145 mmol/L (136-145) 143 mmol/L (136-145) Potassium Level 3.2 mmol/L (3.5-5.1) 3.4 mmol/L (3.5-5.1) Chloride Level 108 mmol/L (98-107) 107 mmol/L (98-107) Carbon Dioxide Level 30 mmol/L (21-32) 29 mmol/L (21-32) Anion Gap 7 (6-14) 7 (6-14) Blood Urea Nitrogen 15 mg/dL (7-20) 15 mg/dL (7-20) Creatinine 1.0 mg/dL (0.6-1.0) 0.7 mg/dL (0.6-1.0) Estimated GFR (Cockcroft-Gault) 53.3 80.5 Glucose Level 102 mg/dL (70-99) 92 mg/dL (70-99) Calcium Level 8.3 mg/dL (8.5-10.1) 8.4 mg/dL (8.5-10.1) Urine Collection Type Unknown Urine Color Yellow Urine Clarity Clear Urine pH 6.0 (<5.0-8.0) Urine Specific [place] 1.010 (1.000-1.030) Urine Protein 30 mg/dL (NEG-TRACE) Urine Glucose (UA) Negative mg/dL (NEG) Urine Ketones (Stick) Negative mg/dL (NEG) Urine Blood Trace (NEG) Urine Nitrite Negative (NEG) Urine Bilirubin Negative (NEG) Urine Urobilinogen Dipstick 0.2 mg/dL (0.2 mg/dL) Urine Leukocyte Esterase Moderate (NEG) Urine RBC 0 /HPF (0-2) Urine WBC 5-10 /HPF (0-4) Urine Bacteria 0 /HPF (0-FEW) White Blood Count 8.7 x10^3/uL (4.0-11.0) Red Blood Count 3.97 x10^6/uL (3.50-5.40) Hemoglobin 12.6 g/dL (12.0-15.5) Hematocrit 36.8 % (36.0-47.0) Mean Corpuscular Volume 93 fL (79-100) Mean Corpuscular Hemoglobin 32 pg (25-35) Mean Corpuscular Hemoglobin Concent 34 g/dL (31-37) Red Cell Distribution Width 15.1 % (11.5-14.5) Platelet Count 180 x10^3/uL (140-400) Neutrophils (%) (Auto) 70 % (31-73) Lymphocytes (%) (Auto) 18 % (24-48) Monocytes (%) (Auto) 10 % (0-9) Eosinophils (%) (Auto) 2 % (0-3) Basophils (%) (Auto) 1 % (0-3) Neutrophils # (Auto) 6.1 x10^3/uL (1.8-7.7) Lymphocytes # (Auto) 1.5 x10^3/uL (1.0-4.8) Monocytes # (Auto) 0.9 x10^3/uL (0.0-1.1) Eosinophils # (Auto) 0.2 x10^3/uL (0.0-0.7) Basophils # (Auto) 0.1 x10^3/uL (0.0-0.2) Assessment and Plan Assessmemt and Plan Problems Medical Problems: (1) Accelerated hypertension Status: Acute (2) CVA (cerebral vascular accident) Status: Acute Comment Review of Relevant I have reviewed the following items carlitos (where applicable) has been applied. Labs Laboratory Tests Test 07/30/20 11:45 8/30/20 10:20 07/31/20 11:41 08/01/20 05:11 White Blood Count 12.9 x10^3/uL (4.0-11.0) 8.7 x10^3/uL (4.0-11.0) Red Blood Count 4.47 x10^6/uL (3.50-5.40) 3.97 x10^6/uL (3.50-5.40) Hemoglobin 13.7 g/dL (12.0-15.5) 12.6 g/dL (12.0-15.5) Hematocrit 41.5 % (36.0-47.0) 36.8 % (36.0-47.0) Mean Corpuscular Volume 93 fL (79-100) 93 fL (79-100) Mean Corpuscular Hemoglobin 31 pg (25-35) 32 pg (25-35) Mean Corpuscular Hemoglobin Concent 33 g/dL (31-37) 34 g/dL (31-37) Red Cell Distribution Width 15.1 % (11.5-14.5) 15.1 % (11.5-14.5) Platelet Count 251 x10^3/uL (140-400) 180 x10^3/uL (140-400) Neutrophils (%) (Auto) 81 % (31-73) 70 % (31-73) Lymphocytes (%) (Auto) 12 % (24-48) 18 % (24-48) Monocytes (%) (Auto) 7 % (0-9) 10 % (0-9) Eosinophils (%) (Auto) 0 % (0-3) 2 % (0-3) Basophils (%) (Auto) 1 % (0-3) 1 % (0-3) Neutrophils # (Auto) 10.4 x10^3/uL (1.8-7.7) 6.1 x10^3/uL (1.8-7.7) Lymphocytes # (Auto) 1.6 x10^3/uL (1.0-4.8) 1.5 x10^3/uL (1.0-4.8) Monocytes # (Auto) 0.9 x10^3/uL (0.0-1.1) 0.9 x10^3/uL (0.0-1.1) Eosinophils # (Auto) 0.0 x10^3/uL (0.0-0.7) 0.2 x10^3/uL (0.0-0.7) Basophils # (Auto) 0.1 x10^3/uL (0.0-0.2) 0.1 x10^3/uL (0.0-0.2) Sodium Level 142 mmol/L (136-145) 145 mmol/L (136-145) 143 mmol/L (136-145) Potassium Level 3.5 mmol/L (3.5-5.1) 3.2 mmol/L (3.5-5.1) 3.4 mmol/L (3.5-5.1) Chloride Level 106 mmol/L (98-107) 108 mmol/L (98-107) 107 mmol/L (98-107) Carbon Dioxide Level 29 mmol/L (21-32) 30 mmol/L (21-32) 29 mmol/L (21-32) Anion Gap 7 (6-14) 7 (6-14) 7 (6-14) Blood Urea Nitrogen 22 mg/dL (7-20) 15 mg/dL (7-20) 15 mg/dL (7-20) Creatinine 1.1 mg/dL (0.6-1.0) 1.0 mg/dL (0.6-1.0) 0.7 mg/dL (0.6-1.0) Estimated GFR (Cockcroft-Gault) 47.8 53.3 80.5 BUN/Creatinine Ratio 20 (6-20) Glucose Level 151 mg/dL (70-99) 102 mg/dL (70-99) 92 mg/dL (70-99) Calcium Level 8.6 mg/dL (8.5-10.1) 8.3 mg/dL (8.5-10.1) 8.4 mg/dL (8.5-10.1) Total Bilirubin 0.4 mg/dL (0.2-1.0) Aspartate Amino Transf (AST/SGOT) 23 U/L (15-37) Alanine Aminotransferase (ALT/SGPT) 16 U/L (14-59) Alkaline Phosphatase 158 U/L (46-116) Total Protein 6.6 g/dL (6.4-8.2) Albumin 3.0 g/dL (3.4-5.0) Albumin/Globulin Ratio 0.8 (1.0-1.7) Urine Collection Type Unknown Urine Color Yellow Urine Clarity Clear Urine pH 6.0 (<5.0-8.0) Urine Specific [place] 1.010 (1.000-1.030) Urine Protein 30 mg/dL (NEG-TRACE) Urine Glucose (UA) Negative mg/dL (NEG) Urine Ketones (Stick) Negative mg/dL (NEG) Urine Blood Trace (NEG) Urine Nitrite Negative (NEG) Urine Bilirubin Negative (NEG) Urine Urobilinogen Dipstick 0.2 mg/dL (0.2 mg/dL) Urine Leukocyte Esterase Moderate (NEG) Urine RBC 0 /HPF (0-2) Urine WBC 5-10 /HPF (0-4) Urine Bacteria 0 /HPF (0-FEW) Laboratory Tests Test 07/31/20 10:20 07/31/20 11:41 08/01/20 05:11 Sodium Level 145 mmol/L (136-145) 143 mmol/L (136-145) Potassium Level 3.2 mmol/L (3.5-5.1) 3.4 mmol/L (3.5-5.1) Chloride Level 108 mmol/L (98-107) 107 mmol/L (98-107) Carbon Dioxide Level 30 mmol/L (21-32) 29 mmol/L (21-32) Anion Gap 7 (6-14) 7 (6-14) Blood Urea Nitrogen 15 mg/dL (7-20) 15 mg/dL (7-20) Creatinine 1.0 mg/dL (0.6-1.0) 0.7 mg/dL (0.6-1.0) Estimated GFR (Cockcroft-Gault) 53.3 80.5 Glucose Level 102 mg/dL (70-99) 92 mg/dL (70-99) Calcium Level 8.3 mg/dL (8.5-10.1) 8.4 mg/dL (8.5-10.1) Urine Collection Type Unknown Urine Color Yellow Urine Clarity Clear Urine pH 6.0 (<5.0-8.0) Urine Specific [place] 1.010 (1.000-1.030) Urine Protein 30 mg/dL (NEG-TRACE) Urine Glucose (UA) Negative mg/dL (NEG) Urine Ketones (Stick) Negative mg/dL (NEG) Urine Blood Trace (NEG) Urine Nitrite Negative (NEG) Urine Bilirubin Negative (NEG) Urine Urobilinogen Dipstick 0.2 mg/dL (0.2 mg/dL) Urine Leukocyte Esterase Moderate (NEG) Urine RBC 0 /HPF (0-2) Urine WBC 5-10 /HPF (0-4) Urine Bacteria 0 /HPF (0-FEW) White Blood Count 8.7 x10^3/uL (4.0-11.0) Red Blood Count 3.97 x10^6/uL (3.50-5.40) Hemoglobin 12.6 g/dL (12.0-15.5) Hematocrit 36.8 % (36.0-47.0) Mean Corpuscular Volume 93 fL (79-100) Mean Corpuscular Hemoglobin 32 pg (25-35) Mean Corpuscular Hemoglobin Concent 34 g/dL (31-37) Red Cell Distribution Width 15.1 % (11.5-14.5) Platelet Count 180 x10^3/uL (140-400) Neutrophils (%) (Auto) 70 % (31-73) Lymphocytes (%) (Auto) 18 % (24-48) Monocytes (%) (Auto) 10 % (0-9) Eosinophils (%) (Auto) 2 % (0-3) Basophils (%) (Auto) 1 % (0-3) Neutrophils # (Auto) 6.1 x10^3/uL (1.8-7.7) Lymphocytes # (Auto) 1.5 x10^3/uL (1.0-4.8) Monocytes # (Auto) 0.9 x10^3/uL (0.0-1.1) Eosinophils # (Auto) 0.2 x10^3/uL (0.0-0.7) Basophils # (Auto) 0.1 x10^3/uL (0.0-0.2) Microbiology 07/31/20 Urine Culture - Final, Complete Medications Current Medications Labetalol HCl (Normodyne Iv Push) 20 mg 1X ONCE IVP Last administered on 07/29/20at 03:53; Start 07/29/20 at 03:30; Stop 07/29/20 at 03:31; Status DC Iohexol (Omnipaque 350 Mg/ml) 75 ml 1X ONCE IV Last administered on 07/29/20at 03:30; Start 07/29/20 at 03:30; Stop 07/29/20 at 03:31; Status DC Info (CONTRAST GIVEN -- Rx MONITORING) 1 each PRN DAILY PRN MC SEE COMMENTS; Start 07/29/20 at 03:15; Stop 07/31/20 at 03:14; Status DC Aspirin (Aspirin Chewable) 324 mg 1X ONCE PO Last administered on 07/29/20at 03:57; Start 07/29/20 at 04:00; Stop 07/29/20 at 04:01; Status DC Ondansetron HCl (Zofran) 4 mg PRN Q8HRS PRN IV NAUSEA/VOMITING 1ST CHOICE Last administered on 07/29/20at 22:09; Start 07/29/20 at 04:00; Stop 07/30/20 at 03:59; Status DC Acetaminophen (Tylenol) 650 mg PRN Q6HRS PRN PO TEMP > 100.4F; Start 07/29/20 at 08:45 Acetaminophen (Tylenol Supp) 650 mg PRN Q4HRS PRN [place] TEMP > 100.4F; Start 07/29/20 at 08:45; Stop 07/29/20 at 13:03; Status DC Aspirin (Ecotrin) 325 mg [id number] PO Last administered on 08/01/20at 08:27; Start 07/30/20 at 08:00 Aspirin (Aspirin Rectal Supp) 300 mg PRN DAILY PRN [place] IF UNABLE TO TAKE PO; Start 07/29/20 at 08:45 Sodium Chloride (Normal Saline Flush) 3 ml QSHIFT PRN IV AFTER MEDS AND BLOOD DRAWS; Start 07/29/20 at 11:30 Sodium Chloride 1,000 ml @ 70 mls/hr [id number] IV Last administered on 07/31/20at 22:33; Start 07/29/20 at 12:00 Acetaminophen (Tylenol Supp) 650 mg PRN Q4HRS PRN [place] TEMP OVER 100.4F OR MILD PAIN; Start 07/29/20 at 11:30 Al Hydroxide/Mg Hydroxide (Mylanta Plus Xs) 30 ml PRN DAILY PRN PO HEARTBURN / GAS; Start 07/29/20 at 11:30 Docusate Sodium (Colace) 100 mg PRN BID PRN PO HARD STOOLS; Start 07/29/20 at 11:30 Albuterol/ Ipratropium (Duoneb) 3 ml Q4HRS NEB ; Start 07/29/20 at 12:00; Stop 07/29/20 at 11:34; Status DC Guaifenesin (Robitussin) 200 mg PRN Q4HRS PRN PO COUGH; Start 07/29/20 at 11:30 Enoxaparin Sodium (Lovenox 40mg Syringe) 40 mg Q24H SQ Last administered on 07/31/20at 12:31; Start 07/29/20 at 12:00 Aspirin (Ecotrin) 81 mg DAILY08 PO ; Start 07/30/20 at 08:00; Status UNV Citalopram Hydrobromide (CeleXA) 10 mg DAILY07 PO Last administered on 07/30/20at 08:52; Start 07/29/20 at 12:30; Stop 07/30/20 at 18:57; Status DC Simvastatin (Zocor) 40 mg HS PO ; Start 07/29/20 at 21:00; Stop 07/29/20 at 15:25; Status DC Calcium/Vitamin D (Oscal D 500mg/ 200uts) 1 tab DAILY PO Last administered on 08/01/20at 08:28; Start 07/29/20 at 12:30 Vitamin D (Vitamin D3) 1,000 unit DAILY PO Last administered on 08/01/20at 08:28; Start 07/29/20 at 12:30 Fish Oil (Fish Oil) 1,000 mg DAILY PO Last administered on 08/01/20at 08:27; Start 07/29/20 at 12:30 Albuterol/ Ipratropium (Duoneb) 3 ml Q4HRS NEB Last administered on 08/01/20at 07:34; Start 07/29/20 at 16:00 Hydralazine HCl (Apresoline Inj) 10 mg PRN Q4HRS PRN IVP ELEVATED BP, SEE COMMENTS Last administered on 08/01/20at 08:29; Start 07/29/20 at 15:15 Ringer's Solution 1,000 ml @ 50 mls/hr Q20H IV ; Start 07/29/20 at 15:16; Stop 07/30/20 at 03:15; Status DC Amlodipine Besylate (Norvasc) 10 mg DAILY PO Last administered on 08/01/20at 08:28; Start 07/29/20 at 15:30 Lisinopril (Prinivil) 20 mg DAILY PO Last administered on 07/30/20at 08:53; Start 07/29/20 at 15:30; Stop 07/30/20 at 18:58; Status DC Atorvastatin Calcium (Lipitor) 20 mg QHS PO Last administered on 07/31/20at 22:24; Start 07/29/20 at 21:00 Citalopram Hydrobromide (CeleXA) 10 mg DAILY PO Last administered on 08/01/20at 08:28; Start 07/30/20 at 19:00 Lisinopril (Prinivil) 10 mg DAILY08 PO Last administered on 08/01/20at 08:28; Start 07/30/20 at 19:00 Trazodone HCl (Desyrel) 50 mg PRN QHS PRN PO INSOMNIA Last administered on 07/31/20at 22:24; Start 07/30/20 at 21:45 Active Scripts Active Reported Citalopram Hbr (Citalopram Hydrobromide) 20 Mg Tablet 1 Tab PO DAILY [place] 5-325 Tablet (Acetaminophen/Hydrocodone Bitart) 1 Each Tablet 1-2 Tab PO Q4-6HRS Doxycycline Hyclate 100 Mg Capsule 1 Cap PO BID 7 Days Vitamin D (Cholecalciferol (Vitamin D3)) 1,000 Unit Capsule 1 Cap PO DAILY Calcium + D Soft Chewable Tab (Ca Carbonate/Vitamin D3/Vit K) 1 Each Tab.chew 1 Each PO DAILY Fish Oil ([place]-3 Fatty Acids) 500 Mg Capsule 500 Mg PO DAILY Simvastatin 40 Mg Tablet 40 Mg PO Aspirin Ec (Aspirin) 81 Mg Tablet.dr 81 Mg PO Citalopram Hbr (Citalopram Hydrobromide) 10 Mg Tablet 10 Mg PO Lisinopril 20 Mg Tablet 20 Mg PO Vitals/I & O Vital Sign - Last 24 Hours 07/31/20 07/31/20 07/31/20 07/31/20 11:00 15:00 15:33 19:58 Temp 98.1 98.1 98.3 98.1 98.1 98.3 Pulse 115 77 75 Resp 16 16 16 B/P (MAP) 140/62 (88) 150/70 (96) 133/61 (85) Pulse Ox 91 93 94 93 O2 Delivery Nasal Cannula Nasal Cannula Nasal Cannula Nasal Cannula O2 Flow Rate 2.0 2.0 2.0 2.0 07/31/20 07/31/20 07/31/20 08/01/20 20:20 20:43 23:56 02:37 Temp 98.1 98.1 98.1 98.1 Pulse 77 76 Resp 16 16 B/P (MAP) 152/66 (94) 169/73 (105) Pulse Ox 94 93 93 O2 Delivery Nasal Cannula Nasal Cannula Nasal Cannula Nasal Cannula O2 Flow Rate 2.0 2.0 2.0 2.0 08/01/20 08/01/20 08/01/20 08/01/20 07:00 07:39 08:28 08:28 Temp 97.5 97.5 Pulse 73 73 73 Resp 16 B/P (MAP) 195/88 (123) 195/88 195/88 Pulse Ox 96 95 O2 Delivery Nasal Cannula Nasal Cannula O2 Flow Rate 2.0 2.0 08/01/20 08:29 Pulse 73 B/P (MAP) 195/88 Intake and Output 07/31/20 07/31/20 08/01/20 15:00 23:00 07:00 Intake Total 1000 ml 480 ml Output Total 600 ml 800 ml 500 ml Balance -600 ml 200 ml -20 ml Justicifation of Admission Dx: Justifications for Admission: Justification of Admission Dx: Yes RHIANNON WILLIS MD Aug 01, 2020 10:18
[2020-08-01 10:31] VITALS: BP 140/62
--- NOTE | 2020-08-01 10:38 | PDOC ---
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 CT angiogram of the head and neck and echocardiogram negative Passed swallow evaluation Hyperlipidemia with elevated LDL Hypertension Tobacco abuse Paroxysmal atrial fibrillation and requests information regarding long-term anticoagulation Complains of chronic restless legs, but would rather have a glass of warm milk at bedtime than start on a medication. Plan Okay for anticoagulant if she paroxysmal atrial fibrillation persists. Statin, aspirin Transfer to residential rehabilitation Subjective She denies pain Objective Vital Signs Date Time Temp Pulse Resp B/P (MAP) Pulse Ox O2 Delivery O2 Flow Rate FiO2 08/01/20 10:31 98.2 78 16 140/62 (88) 94 Nasal Cannula 2.0 98.2 Intake and Output 08/01/20 07:00 Intake Total 1480 ml Output Total 1900 ml Balance -420 ml Intake Oral 120 ml IV Total 1360 ml Output Urine Total 1900 ml # Voids 2 PHYSICAL EXAM Alert. Oriented to time, place and person. PERRL. EOMI. CN: Right central facial weakness, dysarthria better Muscle tone: normal. Muscle strength: 3/5 right arm, 4/5 right leg DTR: 2+ Plantar reflex: flexor Gait: not examined in bed. Sensory exam: no abnormal findings. No cerebellar signs elicited. Review of Relevant I have reviewed the following items carlitos (where applicable) has been applied. Labs Laboratory Tests Test 07/30/20 11:45 07/31/20 10:20 07/31/20 11:41 08/01/20 05:11 White Blood Count 12.9 x10^3/uL (4.0-11.0) 8.7 x10^3/uL (4.0-11.0) Red Blood Count 4.47 x10^6/uL (3.50-5.40) 3.97 x10^6/uL (3.50-5.40) Hemoglobin 13.7 g/dL (12.0-15.5) 12.6 g/dL (12.0-15.5) Hematocrit 41.5 % (36.0-47.0) 36.8 % (36.0-47.0) Mean Corpuscular Volume 93 fL (79-100) 93 fL (79-100) Mean Corpuscular Hemoglobin 31 pg (25-35) 32 pg (25-35) Mean Corpuscular Hemoglobin Concent 33 g/dL (31-37) 34 g/dL (31-37) Red Cell Distribution Width 15.1 % (11.5-14.5) 15.1 % (11.5-14.5) Platelet Count 251 x10^3/uL (140-400) 180 x10^3/uL (140-400) Neutrophils (%) (Auto) 81 % (31-73) 70 % (31-73) Lymphocytes (%) (Auto) 12 % (24-48) 18 % (24-48) Monocytes (%) (Auto) 7 % (0-9) 10 % (0-9) Eosinophils (%) (Auto) 0 % (0-3) 2 % (0-3) Basophils (%) (Auto) 1 % (0-3) 1 % (0-3) Neutrophils # (Auto) 10.4 x10^3/uL (1.8-7.7) 6.1 x10^3/uL (1.8-7.7) Lymphocytes # (Auto) 1.6 x10^3/uL (1.0-4.8) 1.5 x10^3/uL (1.0-4.8) Monocytes # (Auto) 0.9 x10^3/uL (0.0-1.1) 0.9 x10^3/uL (0.0-1.1) Eosinophils # (Auto) 0.0 x10^3/uL (0.0-0.7) 0.2 x10^3/uL (0.0-0.7) Basophils # (Auto) 0.1 x10^3/uL (0.0-0.2) 0.1 x10^3/uL (0.0-0.2) Sodium Level 142 mmol/L (136-145) 145 mmol/L (136-145) 143 mmol/L (136-145) Potassium Level 3.5 mmol/L (3.5-5.1) 3.2 mmol/L (3.5-5.1) 3.4 mmol/L (3.5-5.1) Chloride Level 106 mmol/L (98-107) 108 mmol/L (98-107) 107 mmol/L (98-107) Carbon Dioxide Level 29 mmol/L (21-32) 30 mmol/L (21-32) 29 mmol/L (21-32) Anion Gap 7 (6-14) 7 (6-14) 7 (6-14) Blood Urea Nitrogen 22 mg/dL (7-20) 15 mg/dL (7-20) 15 mg/dL (7-20) Creatinine 1.1 mg/dL (0.6-1.0) 1.0 mg/dL (0.6-1.0) 0.7 mg/dL (0.6-1.0) Estimated GFR (Cockcroft-Gault) 47.8 53.3 80.5 BUN/Creatinine Ratio 20 (6-20) Glucose Level 151 mg/dL (70-99) 102 mg/dL (70-99) 92 mg/dL (70-99) Calcium Level 8.6 mg/dL (8.5-10.1) 8.3 mg/dL (8.5-10.1) 8.4 mg/dL (8.5-10.1) Total Bilirubin 0.4 mg/dL (0.2-1.0) Aspartate Amino Transf (AST/SGOT) 23 U/L (15-37) Alanine Aminotransferase (ALT/SGPT) 16 U/L (14-59) Alkaline Phosphatase 158 U/L (46-116) Total Protein 6.6 g/dL (6.4-8.2) Albumin 3.0 g/dL (3.4-5.0) Albumin/Globulin Ratio 0.8 (1.0-1.7) Urine Collection Type Unknown Urine Color Yellow Urine Clarity Clear Urine pH 6.0 (<5.0-8.0) Urine Specific [place] 1.010 (1.000-1.030) Urine Protein 30 mg/dL (NEG-TRACE) Urine Glucose (UA) Negative mg/dL (NEG) Urine Ketones (Stick) Negative mg/dL (NEG) Urine Blood Trace (NEG) Urine Nitrite Negative (NEG) Urine Bilirubin Negative (NEG) Urine Urobilinogen Dipstick 0.2 mg/dL (0.2 mg/dL) Urine Leukocyte Esterase Moderate (NEG) Urine RBC 0 /HPF (0-2) Urine WBC 5-10 /HPF (0-4) Urine Bacteria 0 /HPF (0-FEW) Laboratory Tests Test 07/31/20 11:41 08/01/20 05:11 Urine Collection Type Unknown Urine Color Yellow Urine Clarity Clear Urine pH 6.0 (<5.0-8.0) Urine Specific [place] 1.010 (1.000-1.030) Urine Protein 30 mg/dL (NEG-TRACE) Urine Glucose (UA) Negative mg/dL (NEG) Urine Ketones (Stick) Negative mg/dL (NEG) Urine Blood Trace (NEG) Urine Nitrite Negative (NEG) Urine Bilirubin Negative (NEG) Urine Urobilinogen Dipstick 0.2 mg/dL (0.2 mg/dL) Urine Leukocyte Esterase Moderate (NEG) Urine RBC 0 /HPF (0-2) Urine WBC 5-10 /HPF (0-4) Urine Bacteria 0 /HPF (0-FEW) White Blood Count 8.7 x10^3/uL (4.0-11.0) Red Blood Count 3.97 x10^6/uL (3.50-5.40) Hemoglobin 12.6 g/dL (12.0-15.5) Hematocrit 36.8 % (36.0-47.0) Mean Corpuscular Volume 93 fL (79-100) Mean Corpuscular Hemoglobin 32 pg (25-35) Mean Corpuscular Hemoglobin Concent 34 g/dL (31-37) Red Cell Distribution Width 15.1 % (11.5-14.5) Platelet Count 180 x10^3/uL (140-400) Neutrophils (%) (Auto) 70 % (31-73) Lymphocytes (%) (Auto) 18 % (24-48) Monocytes (%) (Auto) 10 % (0-9) Eosinophils (%) (Auto) 2 % (0-3) Basophils (%) (Auto) 1 % (0-3) Neutrophils # (Auto) 6.1 x10^3/uL (1.8-7.7) Lymphocytes # (Auto) 1.5 x10^3/uL (1.0-4.8) Monocytes # (Auto) 0.9 x10^3/uL (0.0-1.1) Eosinophils # (Auto) 0.2 x10^3/uL (0.0-0.7) Basophils # (Auto) 0.1 x10^3/uL (0.0-0.2) Sodium Level 143 mmol/L (136-145) Potassium Level 3.4 mmol/L (3.5-5.1) Chloride Level 107 mmol/L (98-107) Carbon Dioxide Level 29 mmol/L (21-32) Anion Gap 7 (6-14) Blood Urea Nitrogen 15 mg/dL (7-20) Creatinine 0.7 mg/dL (0.6-1.0) Estimated GFR (Cockcroft-Gault) 80.5 Glucose Level 92 mg/dL (70-99) Calcium Level 8.4 mg/dL (8.5-10.1) Microbiology 07/31/20 Urine Culture - Final, Complete Medications Current Medications Labetalol HCl (Normodyne Iv Push) 20 mg 1X ONCE IVP Last administered on 07/29/20at 03:53; Start 07/29/20 at 03:30; Stop 07/29/20 at 03:31; Status DC Iohexol (Omnipaque 350 Mg/ml) 75 ml 1X ONCE IV Last administered on 07/29/20at 03:30; Start 07/29/20 at 03:30; Stop 07/29/20 at 03:31; Status DC Info (CONTRAST GIVEN -- Rx MONITORING) 1 each PRN DAILY PRN MC SEE COMMENTS; Start 07/29/20 at 03:15; Stop 07/31/20 at 03:14; Status DC Aspirin (Aspirin Chewable) 324 mg 1X ONCE PO Last administered on 07/29/20at 03:57; Start 07/29/20 at 04:00; Stop 07/29/20 at 04:01; Status DC Ondansetron HCl (Zofran) 4 mg PRN Q8HRS PRN IV NAUSEA/VOMITING 1ST CHOICE Last administered on 07/29/20at 22:09; Start 07/29/20 at 04:00; Stop 07/30/20 at 03:59; Status DC Acetaminophen (Tylenol) 650 mg PRN Q6HRS PRN PO TEMP > 100.4F; Start 07/29/20 at 08:45 Acetaminophen (Tylenol Supp) 650 mg PRN Q4HRS PRN [place] TEMP > 100.4F; Start 07/29/20 at 08:45; Stop 07/29/20 at 13:03; Status DC Aspirin (Ecotrin) 325 mg [id number] PO Last administered on 08/01/20at 08:27; Start 07/30/20 at 08:00 Aspirin (Aspirin Rectal Supp) 300 mg PRN DAILY PRN [place] IF UNABLE TO TAKE PO; Start 07/29/20 at 08:45 Sodium Chloride (Normal Saline Flush) 3 ml QSHIFT PRN IV AFTER MEDS AND BLOOD DRAWS; Start 07/29/20 at 11:30 Sodium Chloride 1,000 ml @ 70 mls/hr [id number] IV Last administered on 07/31/20at 22:33; Start 07/29/20 at 12:00 Acetaminophen (Tylenol Supp) 650 mg PRN Q4HRS PRN [place] TEMP OVER 100.4F OR MILD PAIN; Start 07/29/20 at 11:30 Al Hydroxide/Mg Hydroxide (Mylanta Plus Xs) 30 ml PRN DAILY PRN PO HEARTBURN / GAS; Start 07/29/20 at 11:30 Docusate Sodium (Colace) 100 mg PRN BID PRN PO HARD STOOLS; Start 07/29/20 at 11:30 Albuterol/ Ipratropium (Duoneb) 3 ml Q4HRS NEB ; Start 07/29/20 at 12:00; Stop 07/29/20 at 11:34; Status DC Guaifenesin (Robitussin) 200 mg PRN Q4HRS PRN PO COUGH; Start 07/29/20 at 11:30 Enoxaparin Sodium (Lovenox 40mg Syringe) 40 mg Q24H SQ Last administered on 07/31/20at 12:31; Start 07/29/20 at 12:00 Aspirin (Ecotrin) 81 mg DAILY08 PO ; Start 07/30/20 at 08:00; Status UNV Citalopram Hydrobromide (CeleXA) 10 mg DAILY07 PO Last administered on 07/30/20at 08:52; Start 07/29/20 at 12:30; Stop 07/30/20 at 18:57; Status DC Simvastatin (Zocor) 40 mg HS PO ; Start 07/29/20 at 21:00; Stop 07/29/20 at 15:25; Status DC Calcium/Vitamin D (Oscal D 500mg/ 200uts) 1 tab DAILY PO Last administered on 08/01/20 08:28; Start 07/29/20 at 12:30 Vitamin D (Vitamin D3) 1,000 unit DAILY PO Last administered on 08/01/20 08:28; Start 07/29/20 at 12:30 Fish Oil (Fish Oil) 1,000 mg DAILY PO Last administered on 08/01/20 08:27; Start 07/29/20 at 12:30 Albuterol/ Ipratropium (Duoneb) 3 ml Q4HRS NEB Last administered on 08/01/20 07:34; Start 07/29/20 at 16:00 Hydralazine HCl (Apresoline Inj) 10 mg PRN Q4HRS PRN IVP ELEVATED BP, SEE COMMENTS Last administered on 08/01/20 08:29; Start 07/29/20 at 15:15 Ringer's Solution 1,000 ml @ 50 mls/hr Q20H IV ; Start 07/29/20 at 15:16; Stop 07/30/20 at 03:15; Status DC Amlodipine Besylate (Norvasc) 10 mg DAILY PO Last administered on 08/01/20 08:28; Start 07/29/20 at 15:30 Lisinopril (Prinivil) 20 mg DAILY PO Last administered on 07/30/20 08:53; Start 07/29/20 at 15:30; Stop 07/30/20 at 18:58; Status DC Atorvastatin Calcium (Lipitor) 20 mg QHS PO Last administered on 07/31/20 22:24; Start 07/29/20 at 21:00 Citalopram Hydrobromide (CeleXA) 10 mg DAILY PO Last administered on 08/01/20 08:28; Start 07/30/20 at 19:00 Lisinopril (Prinivil) 10 mg DAILY08 PO Last administered on 08/01/20 08:28; Start 07/30/20 at 19:00 Trazodone HCl (Desyrel) 50 mg PRN QHS PRN PO INSOMNIA Last administered on 07/31/20 22:24; Start 07/30/20 at 21:45 Active Scripts Active Reported Citalopram Hbr (Citalopram Hydrobromide) 20 Mg Tablet 1 Tab PO DAILY [place] 5-325 Tablet (Acetaminophen/Hydrocodone Bitart) 1 Each Tablet 1-2 Tab PO Q4-6HRS Doxycycline Hyclate 100 Mg Capsule 1 Cap PO BID 7 Days Vitamin D (Cholecalciferol (Vitamin D3)) 1,000 Unit Capsule 1 Cap PO DAILY Calcium + D Soft Chewable Tab (Ca Carbonate/Vitamin D3/Vit K) 1 Each Tab.chew 1 Each PO DAILY Fish Oil ([place]-3 Fatty Acids) 500 Mg Capsule 500 Mg PO DAILY Simvastatin 40 Mg Tablet 40 Mg PO Aspirin Ec (Aspirin) 81 Mg Tablet.dr 81 Mg PO Citalopram Hbr (Citalopram Hydrobromide) 10 Mg Tablet 10 Mg PO Lisinopril 20 Mg Tablet 20 Mg PO Vitals/I & O Vital Sign - Last 24 Hours 07/31/20 07/31/20 07/31/20 07/31/20 11:00 15:00 15:33 19:58 Temp 98.1 98.1 98.3 98.1 98.1 98.3 Pulse 115 77 75 Resp 16 16 16 B/P (MAP) 140/62 (88) 150/70 (96) 133/61 (85) Pulse Ox 91 93 94 93 O2 Delivery Nasal Cannula Nasal Cannula Nasal Cannula Nasal Cannula O2 Flow Rate 2.0 2.0 2.0 2.0 07/31/20 07/31/20 07/31/20 08/01/20 20:20 20:43 23:56 02:37 Temp 98.1 98.1 98.1 98.1 Pulse 77 76 Resp 16 16 B/P (MAP) 152/66 (94) 169/73 (105) Pulse Ox 94 93 93 O2 Delivery Nasal Cannula Nasal Cannula Nasal Cannula Nasal Cannula O2 Flow Rate 2.0 2.0 2.0 2.0 08/01/20 08/01/20 08/01/20 08/01/20 07:00 07:39 08:28 08:28 Temp 97.5 97.5 Pulse 73 73 73 Resp 16 B/P (MAP) 195/88 (123) 195/88 195/88 Pulse Ox 96 95 O2 Delivery Nasal Cannula Nasal Cannula O2 Flow Rate 2.0 2.0 08/01/20 08/01/20 08:29 10:31 Temp 98.2 98.2 Pulse 73 78 Resp 16 B/P (MAP) 195/88 140/62 (88) Pulse Ox 94 O2 Delivery Nasal Cannula O2 Flow Rate 2.0 Intake and Output 07/31/20 07/31/20 08/01/20 15:00 23:00 07:00 Intake Total 1000 ml 480 ml Output Total 600 ml 800 ml 500 ml Balance -600 ml 200 ml -20 ml Justicifation of Admission Dx: Justifications for Admission: Justification of Admission Dx: Yes JAVAD SIEGEL MD Aug 01, 2020 10:38
[2020-08-01] MEDS: ENOXAPARIN 40 MG/0.4 ML SYRINGE. SQ SCH (12:34)
--- NOTE | 2020-08-01 13:09 | PDOC ---
CARDIO Progress Notes Date and Time Date of Service 08/01/20 Time of Evaluation 1300 Subjective Subjective: No Chest Pain, No shortness of breath, No Palpitations Vitals Vitals Vital Signs Date Time Temp Pulse Resp B/P (MAP) Pulse Ox O2 Delivery O2 Flow Rate FiO2 08/01/20 12:13 Nasal Cannula 2.0 08/01/20 10:31 98.2 78 16 140/62 (88) 94 98.2 Weight Weight [ ] Input and Output Intake and Output Intake and Output 08/01/20 07:00 Intake Total 1480 ml Output Total 1900 ml Balance -420 ml Intake Oral 120 ml IV Total 1360 ml Output Urine Total 1900 ml # Voids 2 Laboratory Labs Laboratory Tests Test 08/01/20 05:11 08/01/20 11:34 White Blood Count 8.7 x10^3/uL (4.0-11.0) Red Blood Count 3.97 x10^6/uL (3.50-5.40) Hemoglobin 12.6 g/dL (12.0-15.5) Hematocrit 36.8 % (36.0-47.0) Mean Corpuscular Volume 93 fL (79-100) Mean Corpuscular Hemoglobin 32 pg (25-35) Mean Corpuscular Hemoglobin Concent 34 g/dL (31-37) Red Cell Distribution Width 15.1 % (11.5-14.5) Platelet Count 180 x10^3/uL (140-400) Neutrophils (%) (Auto) 70 % (31-73) Lymphocytes (%) (Auto) 18 % (24-48) Monocytes (%) (Auto) 10 % (0-9) Eosinophils (%) (Auto) 2 % (0-3) Basophils (%) (Auto) 1 % (0-3) Neutrophils # (Auto) 6.1 x10^3/uL (1.8-7.7) Lymphocytes # (Auto) 1.5 x10^3/uL (1.0-4.8) Monocytes # (Auto) 0.9 x10^3/uL (0.0-1.1) Eosinophils # (Auto) 0.2 x10^3/uL (0.0-0.7) Basophils # (Auto) 0.1 x10^3/uL (0.0-0.2) Sodium Level 143 mmol/L (136-145) Potassium Level 3.4 mmol/L (3.5-5.1) Chloride Level 107 mmol/L (98-107) Carbon Dioxide Level 29 mmol/L (21-32) Anion Gap 7 (6-14) Blood Urea Nitrogen 15 mg/dL (7-20) Creatinine 0.7 mg/dL (0.6-1.0) Estimated GFR (Cockcroft-Gault) 80.5 Glucose Level 92 mg/dL (70-99) Calcium Level 8.4 mg/dL (8.5-10.1) SARS-CoV-2 Antigen (Rapid) Negative (NEGATIVE) Microbiology Micro Microbiology 07/31/20 Urine Culture - Final, Complete Physical Exam HEENT: Neck Supple W Full Motion Chest: Symmetric LUNGS: Clear to Auscultation Heart: RRR Abdomen: Soft N/T Extremities: No Edema, Other (right-sided weakness ) Neurology: alert, follow commands Assessment Assessment 1. 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 Improved. Followed by neurology. 2. Accelerated HTN. improved, but labile at times 3. HLP: statin 4. Hx of AAA with endovascular repair 5. COPD with continued tobaccoism 6. PAFIB. Mostly maintaining SR, but was in AFIB overnight. Rate controlled. Echo with preserved LV systolic function Recommendations Given recurrent , paroxysmal AFIB on tele, would recommend OAC therapy for stroke prophylaxis Will start Eliquis therapy Rehab modalities. Increase statin to 40mg. Consider for antiarrhythmic therapy. Supportive care Justicifation of Admission Dx: Justifications for Admission: Justification of Admission Dx: Yes JERMAIN GAMEZ APRN Aug 01, 2020 13:09
[2020-08-01] MEDS: IV NORMAL SALINE 1000ML BAG 1,000 ML IV SCH (14:26)
[2020-08-01 14:38] VITALS: BP 135/62
[2020-08-01] MEDS ORDERED: ANTI-COAG MONITOR BY PHARMACY. MC PRN (16:45)
[2020-08-01 19:00] VITALS: BP 147/72
[2020-08-01] MEDS: traZODone 50 MG TABLET. PO PRN (20:07)
[2020-08-01] MEDS: APIXABAN 5 MG TABLET. PO SCH (20:07)
[2020-08-01] MEDS ORDERED: ATORVASTATIN CALCIUM 20 MG TABLET PO SCH (21:00)
[2020-08-01 22:42] VITALS: BP 117/56
[2020-08-02] MEDS: IPRATRPIUM/ALBUTEROL 0.5/2.5MG 3 ML NEBU. NEB SCH ×4 (00:08→12:17)
[2020-08-02] MEDS: IV NORMAL SALINE 1000ML BAG 1,000 ML IV SCH (02:44)
[2020-08-02 02:48] VITALS: BP 150/66
[2020-08-02 07:00] VITALS: BP 169/69
[2020-08-02] MEDS: amLODIPine BESYLATE 10 MG TABLET PO SCH (08:20)
[2020-08-02] MEDS: OMEGA-3 FATTY ACIDS/FISH OIL 1,000 MG CAPSULE. PO SCH (08:20)
[2020-08-02] MEDS: LISINOPRIL 10 MG TABLET PO SCH (08:20)
[2020-08-02] MEDS: CHOLECALCIFEROL (VITAMIN D3) 1,000 UNIT TABLET PO SCH (08:20)
[2020-08-02] MEDS: APIXABAN 5 MG TABLET. PO SCH (08:21)
[2020-08-02] MEDS: CITALOPRAM 10 MG TABLET. PO SCH (08:21)
[2020-08-02] MEDS: CALCIUM CARB/VIT D3 500/200 TABLET. PO SCH (08:22)
[2020-08-02] MEDS: ASPIRIN ENTERIC COATED 325 MG TABLET.DR. PO SCH (08:23)
[2020-08-02] MEDS ORDERED: METOPROLOL TART IMMED RELEASE 25 MG TABLET. PO SCH (10:45)
--- NOTE | 2020-08-02 10:53 | SNU/HH DC ---
DISCHARGE ORDERS DISCHARGE INFORMATION: FINAL DIAGNOSIS Problems Medical Problems: (1) Accelerated hypertension Status: Acute (2) CVA (cerebral vascular accident) Status: Acute CONDITION ON DISCHARGE: Stable CODE STATUS: Code Status: Full MCC: SNF STAY <30 DAYS: No HOSPICE: HOSPICE: No HOSPICE EVAL & TREAT: No LTAC: ADMIT TO LTAC: Yes POST DISCHARGE ORDERS: ACTIVITY ORDERS: Activity as tolerated WEIGHT BEARING STATUS: No restrictions DIET AFTER DISCHARGE: Cardiac TREATMENT/EQUIPMENT ORDERS: RESPIRATORY EQUIPMENT NEEDED: Oxygen Physical Therapy For: Evalulation/Treatment Occupational Therapy For: Evaluation/Treatment Speech Language Pathology For: Evaluation/Treatment DISCHARGE MEDICATIONS: Home Meds Reported Medications Citalopram Hydrobromide (CITALOPRAM HBR) 20 Mg Tablet, 1 TAB PO DAILY for depression 07/29/20 Hydrocodone/Apap 5-325 (NORCO 5-325 TABLET) 1 Each Tablet, 1-2 TAB PO Q4-6HRS, #40 TAB 12/09/14 Doxycycline Hyclate (DOXYCYCLINE HYCLATE) 100 Mg Capsule, 1 CAP PO BID for 7 Days, CAP 12/09/14 Cholecalciferol (Vitamin D3) (VITAMIN D) 1,000 Unit Capsule, 1 CAP PO DAILY, #30 CAP 3 Refills 11/30/14 Ca Carbonate/Vitamin D3/Vit K (CALCIUM + D SOFT CHEWABLE TAB) 1 Each Tab.chew, 1 EACH PO DAILY, TAB.CHEW 11/30/14 [place]-3 Fatty Acids (FISH OIL) 500 Mg Capsule, 500 MG PO DAILY 11/30/14 Simvastatin (SIMVASTATIN) 40 Mg Tablet, 40 MG PO 01/22/14 Aspirin (ASPIRIN EC) 81 Mg Tablet.dr, 81 MG PO 01/22/14 Citalopram Hydrobromide (CITALOPRAM HBR) 10 Mg Tablet, 10 MG PO 01/22/14 Lisinopril (LISINOPRIL) 20 Mg Tablet, 20 MG PO 01/22/14 MAGALI GUTIERREZ III DO Aug 02, 2020 10:53
--- NOTE | 2020-08-02 10:56 | PDOC ---
[facility] PROGRESS NOTE Date of Service DOS: DATE: 08/02/20 TIME: 10:41 Chief Complaint Chief Complaint VTE Prophylaxis Ordered VTE Prophylaxis Devices: No VTE Pharmacological Prophylaxi: Yes Assessment/Plan Assessment/Plan IMPRESSION: Acute CVA, LEFT HEMISPHERE Small acute infarct involving the left centrum semiovale. 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 Moderate stenosis of the left P1 segment and mild/moderate stenosis of the right P2 segment. 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 ON CT HEAD No acute intracranial hemorrhage or CT evidence for an acute cortical infarction. Hypertension severe dysarthria. EMPHYSEMA Accelerated HTN. HLP: not on goal. Adjusting medications Hx AAA with endovascular repair COPD with continued tobaccoism moderate protein-caloric malnutrition PLAN ADMIT CVC BED NEUROLOGY CONSULT PT/OT/ST neurochecks q 4 hrs dvt prophylasis MRI of the brain Echocardiogram DISCUSSED DPOA NEED X 10 MIN CARDIOLOGY CONSULT SMOKING CESSATION EDUCATION PROVIDED 12 MIN opinion from neurology regarding long-term anticoagulation. Discharge Recommendations * Acute Rehab facility 27 MIN PT EXAM, CHART REVIEW, > 50% OF TIME SPENT WITH EXAM, CHART REVIEW, PT CARE COORDINATION Justifications for Admission Justifications for Admission Other Justification History of Present Illness History of Present Illness 08/02/2020 Pt seen and examined. Chart reviewed. Discussed with RN and case filler. Pt resting in chair, pleasantly confused, NAD. Identification/Chief Complaint Chief Complaint 79 year old FEMALE SMOKER presents with right sided weakness, last known normal was at 2300 on 07/28. Patient noticed difficulty using her right hand. // weakness in the right leg and dysarthria. Patient states symptoms are better than when they started but still has some difficulty touching her nose with her right hand. SEEN IN ROOM WITH ER SON Severe short segment stenosis of the right posterior cerebral artery at the anna marie ction of the P2 and P3 segments. Moderate stenosis of the left P1 segment and mild/moderate stenosis of the right P2 segment. on cta head NEEDS DPOA REVIEW, 12 MIN Past Medical History Past Medical History Past Medical History Past Medical History Past Medical History: COPD, Hypertension Past Surgical History: Hysterectomy, Other Additional Past Surgical Histo: AAA REPAIR W/ STENT PLACEMENT Smoking Status: Current Every Day Smoker Alcohol Use: None Drug Use: None FHX COPD Cardiovascular: HTN, Hyperlipidemia, Other Pulmonary: COPD CENTRAL NERVOUS SYSTEM: Other GI: No pertinent hx Heme/Onc: No pertinent hx Hepatobiliary: No pertinent hx Musculoskeletal: Osteoarthritis Rheumatologic: No pertinent hx Infectious disease: No pertinent hx Renal/: No pertinent hx Endocrine: No pertinent hx Past Surgical History Past Surgical History: Hernia Repair, Hysterectomy, Other Family History Family History: Coronary Artery Disease, High Cholesterol, Hypertension Social History Smoke: <1 pack per day ALCOHOL: none Drugs: None Vitals/I&O Vitals/I&O: Vital Signs Date Time Temp Pulse Resp B/P (MAP) Pulse Ox O2 Delivery O2 Flow Rate FiO2 08/02/20 08:31 96 Nasal Cannula 3.0 08/02/20 08:20 82 150/66 08/02/20 07:00 97.6 20 97.6 I & O 08/01/20 08/01/20 08/02/20 15:00 23:00 07:00 Intake Total 200 ml 240 ml 1320 ml Output Total 400 ml 600 ml Balance 200 ml -160 ml 720 ml Physical Exam General: Alert, Cooperative, No acute distress Heart: Regular rate Lungs: Clear Abdomen: Normal bowel sounds Extremities: No clubbing, No cyanosis, No edema Skin: No breakdown, No significant lesion Labs Labs: Laboratory Tests Test 08/01/20 11:34 SARS-CoV-2 Antigen (Rapid) Negative (NEGATIVE) Review of Systems Review of Systems: Pt denies pain, pt denies NVD Assessment and Plan Assessmemt and Plan Problems Medical Problems: (1) Accelerated hypertension Status: Acute (2) CVA (cerebral vascular accident) Status: Acute Assessment: Acute CVA, LEFT HEMISPHERE Small acute infarct involving the left centrum semiovale. COPD, current smoker HTN COVID neg Plan: Per cardiac recommendation: increase statin dosage, consider antiarrhythmic treatment PT/OT DVT prophylaxis Home meds Full code Hope to discharge today, accepted at [facility] Comment Review of Relevant I have reviewed the following items carlitos (where applicable) has been applied. Medications: Current Medications Medications (Trade) Dose Ordered Sig/Franky Route PRN Reason Start Time Stop Time Status Last Admin Dose Admin Atorvastatin Calcium (Lipitor) 40 mg QHS PO 08/01/20 21:00 08/01/20 20:07 Apixaban (Eliquis) 5 mg BID PO 08/01/20 21:00 08/02/20 08:21 Info (Anti-Coagulation Monitoring By Pharmacy) 1 each PRN DAILY PRN [facility] SEE COMMENTS 08/01/20 16:45 08/02/20 08:52 Justifications for Admission Other Justification MAGALI GUTIERREZ III DO Aug 02, 2020 10:56
[2020-08-02 11:00] VITALS: BP 141/67
[2020-08-02] MEDS ORDERED: BARIUM SULFATE 40% (APPLE) 148 GM PWD. PO ONE (11:15)
--- NOTE | 2020-08-02 12:01 | PDOC ---
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 CT angiogram of the head and neck and echocardiogram negative Passed swallow evaluation Hyperlipidemia with elevated LDL Hypertension Tobacco abuse Paroxysmal atrial fibrillation Complains of chronic restless legs, but would rather have a glass of warm milk at bedtime than start on a medication. Plan Note apixaban started Statin Transfer to [facility] rehabilitation Follow-up with urology as needed Subjective No complaints Objective Vital Signs Date Time Temp Pulse Resp B/P (MAP) Pulse Ox O2 Delivery O2 Flow Rate FiO2 08/02/20 11:00 97.9 75 20 141/67 (91) 95 Nasal Cannula 3.0 97.9 Intake and Output 08/02/20 07:00 Intake Total 1760 ml Output Total 1000 ml Balance 760 ml Intake Oral 920 ml IV Total 840 ml Output Urine Total 1000 ml # Voids 1 PHYSICAL EXAM Alert. Oriented to time, place and person. PERRL. EOMI. CN: Right central facial weakness, dysarthria better Muscle tone: normal. Muscle strength: 3/5 right arm, 4/5 right leg DTR: 2+ Plantar reflex: flexor Gait: not examined in bed. Sensory exam: no abnormal findings. No cerebellar signs elicited. Review of Relevant I have reviewed the following items carlitos (where applicable) has been applied. Labs Laboratory Tests Test 08/01/20 05:11 08/01/20 11:34 White Blood Count 8.7 x10^3/uL (4.0-11.0) Red Blood Count 3.97 x10^6/uL (3.50-5.40) Hemoglobin 12.6 g/dL (12.0-15.5) Hematocrit 36.8 % (36.0-47.0) Mean Corpuscular Volume 93 fL (79-100) Mean Corpuscular Hemoglobin 32 pg (25-35) Mean Corpuscular Hemoglobin Concent 34 g/dL (31-37) Red Cell Distribution Width 15.1 % (11.5-14.5) Platelet Count 180 x10^3/uL (140-400) Neutrophils (%) (Auto) 70 % (31-73) Lymphocytes (%) (Auto) 18 % (24-48) Monocytes (%) (Auto) 10 % (0-9) Eosinophils (%) (Auto) 2 % (0-3) Basophils (%) (Auto) 1 % (0-3) Neutrophils # (Auto) 6.1 x10^3/uL (1.8-7.7) Lymphocytes # (Auto) 1.5 x10^3/uL (1.0-4.8) Monocytes # (Auto) 0.9 x10^3/uL (0.0-1.1) Eosinophils # (Auto) 0.2 x10^3/uL (0.0-0.7) Basophils # (Auto) 0.1 x10^3/uL (0.0-0.2) Sodium Level 143 mmol/L (136-145) Potassium Level 3.4 mmol/L (3.5-5.1) Chloride Level 107 mmol/L (98-107) Carbon Dioxide Level 29 mmol/L (21-32) Anion Gap 7 (6-14) Blood Urea Nitrogen 15 mg/dL (7-20) Creatinine 0.7 mg/dL (0.6-1.0) Estimated GFR (Cockcroft-Gault) 80.5 Glucose Level 92 mg/dL (70-99) Calcium Level 8.4 mg/dL (8.5-10.1) Magnesium Level 2.0 mg/dL (1.8-2.4) SARS-CoV-2 Antigen (Rapid) Negative (NEGATIVE) Microbiology 07/31/20 Urine Culture - Final, Complete Medications Current Medications Labetalol HCl (Normodyne Iv Push) 20 mg 1X ONCE IVP Last administered on 07/29/20at 03:53; Start 07/29/20 at 03:30; Stop 07/29/20 at 03:31; Status DC Iohexol (Omnipaque 350 Mg/ml) 75 ml 1X ONCE IV Last administered on 07/29/20at 03:30; Start 07/29/20 at 03:30; Stop 07/29/20 at 03:31; Status DC Info (CONTRAST GIVEN -- Rx MONITORING) 1 each PRN DAILY PRN MC SEE COMMENTS; Start 07/29/20 at 03:15; Stop 07/31/20 at 03:14; Status DC Aspirin (Aspirin Chewable) 324 mg 1X ONCE PO Last administered on 07/29/20at 03:57; Start 07/29/20 at 04:00; Stop 07/29/20 at 04:01; Status DC Ondansetron HCl (Zofran) 4 mg PRN Q8HRS PRN IV NAUSEA/VOMITING 1ST CHOICE Last administered on 07/29/20at 22:09; Start 07/29/20 at 04:00; Stop 07/30/20 at 03:59; Status DC Acetaminophen (Tylenol) 650 mg PRN Q6HRS PRN PO TEMP > 100.4F; Start 07/29/20 at 08:45 Acetaminophen (Tylenol Supp) 650 mg PRN Q4HRS PRN OK TEMP > 100.4F; Start 07/29/20 at 08:45; Stop 07/29/20 at 13:03; Status DC Aspirin (Ecotrin) 325 mg DAILYWBKFT PO Last administered on 08/02/20at 08:23; Start 07/30/20 at 08:00 Aspirin (Aspirin Rectal Supp) 300 mg PRN DAILY PRN OK IF UNABLE TO TAKE PO; Start 07/29/20 at 08:45 Sodium Chloride (Normal Saline Flush) 3 ml QSHIFT PRN IV AFTER MEDS AND BLOOD DRAWS; Start 07/29/20 at 11:30 Sodium Chloride 1,000 ml @ 70 mls/hr [id number] IV Last administered on 08/02/20at 02:44; Start 07/29/20 at 12:00 Acetaminophen (Tylenol Supp) 650 mg PRN Q4HRS PRN OK TEMP OVER 100.4F OR MILD PAIN; Start 07/29/20 at 11:30 Al Hydroxide/Mg Hydroxide (Mylanta Plus Xs) 30 ml PRN DAILY PRN PO HEARTBURN / GAS; Start 07/29/20 at 11:30 Docusate Sodium (Colace) 100 mg PRN BID PRN PO HARD STOOLS Last administered on 08/02/20at 08:26; Start 07/29/20 at 11:30 Albuterol/ Ipratropium (Duoneb) 3 ml Q4HRS NEB ; Start 07/29/20 at 12:00; Stop 07/29/20 at 11:34; Status DC Guaifenesin (Robitussin) 200 mg PRN Q4HRS PRN PO COUGH; Start 07/29/20 at 11:30 Enoxaparin Sodium (Lovenox 40mg Syringe) 40 mg Q24H SQ Last administered on 08/01/20at 12:34; Start 07/29/20 at 12:00; Stop 08/01/20 at 16:41; Status DC Aspirin (Ecotrin) 81 mg DAILY08 PO ; Start 07/30/20 at 08:00; Status UNV Citalopram Hydrobromide (CeleXA) 10 mg DAILY07 PO Last administered on 07/30/20at 08:52; Start 07/29/20 at 12:30; Stop 07/30/20 at 18:57; Status DC Simvastatin (Zocor) 40 mg HS PO ; Start 07/29/20 at 21:00; Stop 07/29/20 at 15:25; Status DC Calcium/Vitamin D (Oscal D 500mg/ 200uts) 1 tab DAILY PO Last administered on 08/02/20at 08:22; Start 07/29/20 at 12:30 Vitamin D (Vitamin D3) 1,000 unit DAILY PO Last administered on 08/02/20at 08:20; Start 07/29/20 at 12:30 Fish Oil (Fish Oil) 1,000 mg DAILY PO Last administered on 08/02/20at 08:20; Start 07/29/20 at 12:30 Albuterol/ Ipratropium (Duoneb) 3 ml Q4HRS NEB Last administered on 08/02/20at 08:28; Start 07/29/20 at 16:00 Hydralazine HCl (Apresoline Inj) 10 mg PRN Q4HRS PRN IVP ELEVATED BP, SEE COMMENTS Last administered on 08/01/20at 08:29; Start 07/29/20 at 15:15 Ringer's Solution 1,000 ml @ 50 mls/hr Q20H IV ; Start 07/29/20 at 15:16; Stop 07/30/20 at 03:15; Status DC Amlodipine Besylate (Norvasc) 10 mg DAILY PO Last administered on 08/02/20at 08:20; Start 07/29/20 at 15:30 Lisinopril (Prinivil) 20 mg DAILY PO Last administered on 07/30/20at 08:53; Start 07/29/20 at 15:30; Stop 07/30/20 at 18:58; Status DC Atorvastatin Calcium (Lipitor) 20 mg QHS PO Last administered on 07/31/20at 22:24; Start 07/29/20 at 21:00; Stop 08/01/20 at 16:39; Status DC Citalopram Hydrobromide (CeleXA) 10 mg DAILY PO Last administered on 08/02/20 08:21; Start 07/30/20 at 19:00 Lisinopril (Prinivil) 10 mg DAILY08 PO Last administered on 08/02/20 08:20; Start 07/30/20 at 19:00 Trazodone HCl (Desyrel) 50 mg PRN QHS PRN PO INSOMNIA Last administered on 08/01/20at 20:07; Start 07/30/20 at 21:45 Atorvastatin Calcium (Lipitor) 40 mg QHS PO Last administered on 08/01/20at 20:07; Start 08/01/20 at 21:00 Apixaban (Eliquis) 5 mg BID PO Last administered on 08/02/20at 08:21; Start 07/04 12/21 at 21:00 Info (Anti-Coagulation Monitoring By Pharmacy) 1 each PRN DAILY PRN MC SEE COMMENTS Last administered on 08/02/20at 08:52; Start 08/01/20 at 16:45 Metoprolol Tartrate (Lopressor) 12.5 mg BID PO Last administered on 08/02/20at 10:45; Start 08/02/20 at 10:45 Barium Sulfate (Varibar Thin Liquid Apple) 148 gm 1X ONCE PO ; Start 08/02/20 at 11:15; Stop 08/02/20 at 11:16; Status DC Active Scripts Active Reported Citalopram Hbr (Citalopram Hydrobromide) 20 Mg Tablet 1 Tab PO DAILY [place]ell 5-325 Tablet (Acetaminophen/Hydrocodone Bitart) 1 Each Tablet 1-2 Tab PO Q4-6HRS Doxycycline Hyclate 100 Mg Capsule 1 Cap PO BID 7 Days Vitamin D (Cholecalciferol (Vitamin D3)) 1,000 Unit Capsule 1 Cap PO DAILY Calcium + D Soft Chewable Tab (Ca Carbonate/Vitamin D3/Vit K) 1 Each Tab.chew 1 Each PO DAILY Fish Oil (Yale-3 Fatty Acids) 500 Mg Capsule 500 Mg PO DAILY Simvastatin 40 Mg Tablet 40 Mg PO Aspirin Ec (Aspirin) 81 Mg Tablet.dr 81 Mg PO Citalopram Hbr (Citalopram Hydrobromide) 10 Mg Tablet 10 Mg PO Lisinopril 20 Mg Tablet 20 Mg PO Vitals/I & O Vital Sign - Last 24 Hours 08/01/20 08/01/20 08/01/20 08/01/20 12:13 14:38 17:31 19:00 Temp 97.9 97.8 97.9 97.8 Pulse 77 71 Resp 16 17 B/P (MAP) 135/62 (86) 147/72 (97) Pulse Ox 92 95 O2 Delivery Nasal Cannula Nasal Cannula Nasal Cannula Nasal Cannula O2 Flow Rate 2.0 2.0 2.0 2.0 08/01/20 08/01/20 08/01/20 08/02/20 19:28 19:58 22:42 00:08 Temp 97.7 97.7 Pulse 73 Resp 18 B/P (MAP) 117/56 (76) Pulse Ox 96 96 O2 Delivery Room Air Nasal Cannula Nasal Cannula Nasal Cannula O2 Flow Rate 3.0 2.0 3.0 08/02/20 08/02/20 08/02/20 08/02/20 02:48 07:00 08:00 08:20 Temp 97.7 97.6 97.7 97.6 Pulse 82 75 82 Resp 19 20 B/P (MAP) 150/66 (94) 169/69 (102) 150/66 Pulse Ox 97 93 O2 Delivery Nasal Cannula Nasal Cannula Room Air O2 Flow Rate 2.0 3.0 08/02/20 08/02/20 08/02/20 08/02/20 08:20 08:31 10:45 11:00 Temp 97.9 97.9 Pulse 82 82 75 Resp 20 B/P (MAP) 150/66 150/66 141/67 (91) Pulse Ox 96 95 O2 Delivery Nasal Cannula Nasal Cannula O2 Flow Rate 3.0 3.0 Intake and Output 08/01/20 08/01/20 08/02/20 15:00 23:00 07:00 Intake Total 200 ml 240 ml 1320 ml Output Total 400 ml 600 ml Balance 200 ml -160 ml 720 ml Justicifation of Admission Dx: Justifications for Admission: Justification of Admission Dx: Yes JAVAD SIEGEL MD Aug 02, 2020 12:01
--- NOTE | 2020-08-02 15:22 | NUR ---
Discharge Note: HONORIO MCGUIRE Discharge instructions and discharge home medications reviewed with Other facility and a copy given. All questions have been answered and understanding verbalized. The following instructions and handouts were given: swallowing precautions Discontinued lines and drains: IV catheter remvoed intact. Tele monitor removed. [facility]. Report called to Donna at [facility].
--- NOTE | 2020-08-02 16:25 | PDOC ---
CARDIO Progress Notes Date and Time Date of Service 08/02/2020 Time of Evaluation 1130 Subjective Subjective: No Chest Pain, No shortness of breath, No Palpitations Vitals Vitals Vital Signs Date Time Temp Pulse Resp B/P (MAP) Pulse Ox O2 Delivery O2 Flow Rate FiO2 08/02/20 12:17 Nasal Cannula 3.0 08/02/20 11:00 97.9 75 20 141/67 (91) 95 97.9 Weight Weight [ ] Input and Output Intake and Output Intake and Output 08/02/20 07:00 Intake Total 1760 ml Output Total 1000 ml Balance 760 ml Intake Oral 920 ml IV Total 840 ml Output Urine Total 1000 ml # Voids 1 Microbiology Micro Microbiology 07/31/20 Urine Culture - Final, Complete Physical Exam HEENT: Neck Supple W Full Motion Chest: Symmetric LUNGS: Clear to Auscultation Heart: RRR (SR) Abdomen: Soft N/T Extremities: No Edema Neurology: alert, oriented, follow commands Assessment Assessment 1. 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 Improved. Followed by neurology. 2. Accelerated HTN. better 3. HLP: statin 4. Hx of AAA with endovascular repair 5. COPD with continued tobaccoism 6. PAFIB. new. Mostly maintaining SR, but was in AFIB overnight. Rate controlled. Echo with preserved LV systolic function Recommendations Eliquis for stroke prevention. Low dose metoprolol. Continue current BP regimen OK to transfer to rehab Statin Follow up in office after rehab discharge smoking cessation Justicifation of Admission Dx: Justifications for Admission: Justification of Admission Dx: Yes ALEKSANDER SHI APRN Aug 02, 2020 16:25
--- NOTE | 2020-08-02 17:09 | RAD ---
PROCEDURE: VIDEO SWALLOW STUDY CLINICAL INDICATION / HISTORY: Reason: dysphagia p.acute CVA / 2.9 MIN FLUORO TIME / Spl. Instructions: 1315 hrs. Spoke w/Nathaly/BARIUM ORDERED / History: . TECHNIQUE: Real-time fluoroscopic imaging examination was performed in conjunction with speech therapy. The patient was administered barium labeled thin liquids, nectar, honey, pudding, mixed, and solid consistency compounds. FLUOROSCOPY TIME: 2.9 minutes. Number of Images: 0 COMPARISON: Chest x-ray 07/29/2020 FINDINGS: The patient exhibited normal oral control. There was free spill of thin liquids, pudding, and nectar consistency compounds into the vallecula and piriform sinus. No flash penetration was observed with thin liquids, nectar, and honey consistency compounds. No definite aspiration was observed. The patient tolerated solid barium label compounds. IMPRESSION: Normal video swallow study. . No evidence of aspiration. Please refer to speech pathology notes for complete details and recommendations. Electronically signed by: Shelia Rueda MD (08/02/2020 5:06 PM) [id number]
== END 2020-08-02 15:30 | DRG 65 ==
LOC: ER 02:45 → 2 SOUTH 04:26
PROVIDERS: ADMIT Internal Medicine; ATTEND Internal Medicine
DX: I63.9 Cerebral infarction, unspecified (principal); E44.0 Moderate protein-calorie malnutrition; G81.91 Hemiplegia, unspecified affecting right dominant side; E78.5 Hyperlipidemia, unspecified; E86.0 Dehydration; F17.210 Nicotine dependence, cigarettes, uncomplicated; G25.81 Restless legs syndrome; I10 Essential (primary) hypertension; I48.0 Paroxysmal atrial fibrillation; I71.4 Abdominal aortic aneurysm, without rupture; I73.9 Peripheral vascular disease, unspecified; J43.9 Emphysema, unspecified; M47.812 Spondylosis without myelopathy or radiculopathy, cervical region; M48.02 Spinal stenosis, cervical region; M81.0 Age-related osteoporosis without current pathological fracture; R13.12 Dysphagia, oropharyngeal phase; Z20.828 Contact with and (suspected) exposure to other viral communicable diseases; Z79.01 Long term (current) use of anticoagulants; Z82.49 Family history of ischemic heart disease and other diseases of the circulatory system; Z82.5 Family history of asthma and other chronic lower respiratory diseases; Z86.79 Personal history of other diseases of the circulatory system; Z90.710 Acquired absence of both cervix and uterus; Z91.81 History of falling; F41.9 Anxiety disorder, unspecified; M19.90 Unspecified osteoarthritis, unspecified site; Z88.8 Allergy status to other drugs, medicaments and biological substances
CPT/HCPCS: 36415; 70450; 70496; 70498; 70551; 71045; 74230; 80048; 80053; 80061; 81001; 83735; 84484; 85025; 85610; 85730; 87086; 87426; 93005; 93306; 93880; 94640; 94760; 96374; 99291; J0360; J1650; J2405; J3490; J7030; Q9967; 92526-GN; 92610-GN; 92611-GN; 97110-GP; 97530-GO; 97530-GP; 97535-GO; G0378; U0003-CS